=== PATIENT | male | born 1930 | race Caucasian/White ===

== ENCOUNTER 2016-05-26 17:24 | Observation (INO) | payer OTHER, MEDICARE ==
--- NOTE | 2016-05-26 17:39 | EDPHY ---
H & P Time Seen by Provider: 05/26/16 17:27 HPI/ROS: CHIEF COMPLAINT: Slurred speech and dizziness and right-sided visual problem HISTORY OF PRESENT ILLNESS: Patient had a previous stroke in 2011 which left him with a facial droop. He was with his family when he started saying that he had some dizziness at 3:45 p.m. or 3:50 p.m.. He them took a nap and woke up an hour after that and told his he had some difficulty with the right side of his vision, worsening slurred speech, and worsening dizziness. Last known normal was 3:45 p.m. today. On arrival he denies headache. He is not on anticoagulants. He continues to have symptoms. REVIEW OF SYSTEMS: Eye: Double vision and trouble with vision to the right ENT: no sore throat Cardiac: no chest pain or syncope Pulmonary: no cough or SOB Abdomen: no vomiting, diarrhea, abdominal pain Musculoskeletal: no back pain or neck pain Skin: no rash Neuro: no headache Constitutional: no fever : no urinary symptoms A comprehensive 10 point review of systems is otherwise negative aside from elements mentioned in the history of present illness. PAST MEDICAL HISTORY: H&P dated 12/14/2014 personally reviewed. Includes history of stroke, left facial droop, chronic right facial numbness after trigeminal neuralgia treatment, "blurry vision and diplopia that is chronic", hypertension, AFib, GERD. Right hip replacement. Social history: Former smoker, . General Appearance: Alert, cooperative. Eyes: No scleral icterus. Pupils 3 mm reactive bilaterally but right eye has lateral deviation at rest. Extraocular motion intact. ENT, Mouth: Normal mucous membranes. Respiratory: Normal respiratory effort, breath sounds equal, lungs are clear to auscultation. Cardiovascular: Regular rate and rhythm. Gastrointestinal: Abdomen is soft and non tender. Neurological: Alert and oriented x3. Expressive aphasia is present. Right facial numbness. Patient is able to have equal mail technician strength and lift each leg off the bed. He has a left facial droop present which apparently is not new. Visual victor intact to confrontation. Skin: Warm and dry, no rashes. Musculoskeletal: No peripheral edema and no joint swelling. Psychiatric: Not agitated. Emergency Department course/MDM: Patient was made a stroke alert on arrival into the room. 1737: Discussed with Dr. Benjamin from [facility]. 175: Evaluated with Dr. Benjamin recommends no IV alteplase, CT angiography, transfer of large vessel occlusion or admission to [facility] for MRI and Neurology consultation if no acute large vessel occlusion. He personally evaluated the patient by telemedicine. During this evaluation Dr. Benavides called to report nothing acute seen on noncontrast head CT. 1821: Dr. Benavides reports negative CT angiography, results discussed with the patient and family, plan to admit with Neurology consultation. Smoking Status: Never smoked Constitutional: Initial Vital Signs Temperature (C) 36.8 C 05/26/16 17:24 Heart Rate 60 05/26/16 17:24 Respiratory Rate 22 H 05/26/16 17:24 Blood Pressure 130/70 H 05/26/16 17:24 O2 Sat (%) 95 05/26/16 17:24 O2 Delivery Mode Room Air Allergies/Adverse Reactions: No Known Allergies Allergy (Unverified 06/14/14 22:40) Home Medications: Medication Instructions Recorded ALPRAZolam [Xanax 0.5 MG (RX)] 0.25 mg PO HS 10/29/11 Ezetimibe [Zetia] 10 mg PO DAILY 12/14/14 Tamsulosin HCl [Flomax] 0.4 mg PO HS 12/14/14 Aspirin [Aspirin 81mg (*)] 81 mg PO DAILY 05/26/16 Carboxymethylcellulose 1% [Refresh 1 each RTEYE QID 05/26/16 Celluvisc (*)] Fluoxetine HCl [Prozac 40 mg] 40 mg PO DAILY 05/26/16 Mineral Oil/Petrolatum,White 3.5 gm LEFTEYE QID 05/26/16 [Genteal Pm Ointment] Moxifloxacin HCl [Vigamox] 1 drops RTEYE DAILY 05/26/16 Oxybutynin Chloride [Ditropan Xl] 5 mg PO DAILY 05/26/16 Oxybutynin Chloride [Ditropan Xl] 10 mg PO HS 05/26/16 amLODIPine BESYLATE [Norvasc 2.5 2.5 mg PO BID 05/26/16 mg (*)] Medical Decision Making - Diagnostics EKG Interpretation: 12-lead EKG interpreted by me; official reading is in trace master. My interpretation is sinus rhythm with PVCs and first-degree AV block. Imaging: Imaging Impressions Head CT 05/26/16 17:30 Impression: 1. No acute intracranial findings. 2. Diffuse cerebral atrophy, with scattered periventricular and subcortical low attenuation consistent with chronic microvascular ischemic gliosis. 3. Chronic sinus disease. Findings discussed with Shai Gay M.D., on May 26, 2016 at 1742 hours. Head CTA 05/26/16 17:53 Impression: 1. No acute vascular findings. 2. Approximately 50% stenosis of the proximal left internal carotid artery. 3. Moderate to severe spinal canal narrowing from C5 through C7. 4. Moderate basilar artery stenosis, similar to the comparison. 5. Atherosclerosis with mild stenoses at multiple sites as above. 6. Additional findings, as above. Stenoses are calculated using [place] Symptomatic Carotid Endarterectomy Trial (NASCET) criteria. Preliminary findings discussed with Shai Gay M.D., on May 26, 2016 at 1814 hours. Neck CTA 05/26/16 17:53 Impression: 1. No acute vascular findings. 2. Approximately 50% stenosis of the proximal left internal carotid artery. 3. Moderate to severe spinal canal narrowing from C5 through C7. 4. Moderate basilar artery stenosis, similar to the comparison. 5. Atherosclerosis with mild stenoses at multiple sites as above. 6. Additional findings, as above. Stenoses are calculated using [place] Symptomatic Carotid Endarterectomy Trial (NASCET) criteria. Preliminary findings discussed with Shai Gay M.D., on May 26, 2016 at [address] personally reviewed by myself. Differential Diagnosis: Differential considered including but not limited to seizure, intracranial bleed , ischemic stroke, metabolic Consult/Admit Bed Type: [facility] 1824, [facility] 1825 Critical Care Time: Critical care time spent by me, Dr. Gay, exclusively with the care of this patient was 30 minutes, exclusive of PA or BOOSTER STATION OPERATOR time and exclusive of separate procedures. The organ system at risk was neurologic and I ordered consultation with [facility], multiple diagnostic studies, history from family, discussion of treatment options; to stabilize the patient and prevent worsening of the patient's condition. - Data Points Laboratory Results: Laboratory Results 05/26/16 17:30 05/26/16 17:30 05/26/16 05/26/16 05/26/16 17:30 17:30 17:30 WBC 8.70 10^3/uL 10^3/uL (3.80-9.50) RBC 4.35 10^6/uL L 10^6/uL (4.40-6.38) Hgb 14.5 g/dL g/dL (13.7-17.5) POC Hgb Hct 41.6 % % (40.0-51.0) POC Hct MCV 95.6 fL fL (81.5-99.8) MCH 33.3 pg pg (27.9-34.1) MCHC 34.9 g/dL g/dL (32.4-36.7) RDW 13.4 % % (11.5-15.2) Plt Count 178 10^3/uL 10^3/uL (150-400) MPV 10.6 fL fL (8.7-11.7) Neut % (Auto) 69.6 % % (39.3-74.2) Lymph % (Auto) 17.0 % % (15.0-45.0) Callaway % (Auto) 8.9 % % (4.5-13.0) Eos % (Auto) 3.7 % % (0.6-7.6) Baso % (Auto) 0.5 % % (0.3-1.7) Nucleat RBC Rel Count 0.0 % % (0.0-0.2) Absolute Neuts (auto) 6.06 10^3/uL 10^3/uL (1.70-6.50) Absolute Lymphs (auto) 1.48 10^3/uL 10^3/uL (1.00-3.00) Absolute Monos (auto) 0.77 10^3/uL 10^3/uL (0.30-0.80) Absolute Eos (auto) 0.32 10^3/uL 10^3/uL (0.03-0.40) Absolute Basos (auto) 0.04 10^3/uL 10^3/uL (0.02-0.10) Absolute Nucleated RBC 0.00 10^3/uL 10^3/uL (0-0.01) Immature Gran % 0.3 % % (0.0-1.1) Immature Gran # 0.03 10^3/uL 10^3/uL (0.00-0.10) PT 14.8 SEC SEC (12.0-15.0) INR 1.16 (0.83-1.16) APTT 32.0 SEC SEC (23.0-38.0) POC Sodium Sodium 137 mEq/L mEq/L (134-144) POC Potassium Potassium 4.5 mEq/L mEq/L (3.5-5.2) POC Chloride Chloride 103 mEq/L mEq/L (97-110) Carbon Dioxide 29 mEq/l mEq/l (22-31) Anion Gap 5 mEq/L L mEq/L (8-16) POC BUN BUN 18 mg/dL mg/dL (7-23) Creatinine 0.8 mg/dL mg/dL (0.7-1.3) POC Creatinine Estimated GFR > 60 Glucose 113 mg/dL H mg/dL (70-100) POC Glucose Calcium 9.2 mg/dL mg/dL (8.5-10.4) Troponin I < 0.012 ng/mL ng/mL (0-0.034) 05/26/16 17:29 WBC RBC Hgb POC Hgb 14.3 gm/dL L gm/dL (14.5-17.3) Hct POC Hct 42 % L % (42.8-50.6) MCV MCH MCHC RDW Plt Count MPV Neut % (Auto) Lymph % (Auto) Callaway % (Auto) Eos % (Auto) Baso % (Auto) Nucleat RBC Rel Count Absolute Neuts (auto) Absolute Lymphs (auto) Absolute Monos (auto) Absolute Eos (auto) Absolute Basos (auto) Absolute Nucleated RBC Immature Gran % Immature Gran # PT INR APTT POC Sodium 141 mEq/L mEq/L (134-144) Sodium POC Potassium 4.2 mEq/L mEq/L (3.3-5.0) Potassium POC Chloride 99 mEq/L mEq/L (96-108) Chloride Carbon Dioxide Anion Gap POC BUN 18 mg/dL mg/dL (7-23) BUN Creatinine POC Creatinine 0.9 mg/dL mg/dL (0.8-1.5) Estimated GFR Glucose POC Glucose 116 mg/dL H mg/dL (70-100) Calcium Troponin I Point of Care Test Results: 05/26/16 17:29 POC Sodium 141 POC Potassium 4.2 POC Chloride 99 POC BUN 18 POC Creatinine 0.9 POC Glucose 116 H Departure - Departure Disposition: [facility] Inpatient Acute Clinical Impression: Dizziness, Aphasia Condition: Fair
[2016-05-26 17:43] LABS: % IMMATURE GRANULYOCYTES 0.3 % (0.0-1.1); ABSOLUTE IMMATURE GRANULOCYTES 0.03 10^3/uL (0.00-0.10); ADD DIFF? NO; ADD MORPH? NO; ADD SCAN? NO; ATYPICAL LYMPHOCYTE FLAG 0 (0-99); FRAGMENT RBC FLAG 0 (0-99); HEMATOCRIT 41.6 % (40.0-51.0); HEMOGLOBIN 14.5 g/dL (13.7-17.5); LEFT SHIFT FLG 0 (0-99); LIPEMIA HEMOLYSIS FLAG 90 (0-99); MEAN CELL HEMOGLOBIN 33.3 pg (27.9-34.1); MEAN CELL HEMOGLOBIN CONCENTR. 34.9 g/dL (32.4-36.7); MEAN CELL VOLUME 95.6 fL (81.5-99.8); MEAN PLATELET VOLUME 10.6 fL (8.7-11.7); PLATELET CLUMPS FLAG 20 (0-99); PLATELET COUNT 178 10^3/uL (150-400); RED BLOOD CELL COUNT 4.35 10^6/uL (4.40-6.38); RED CELL DISTRIBUTION WIDTH 13.4 % (11.5-15.2)
[2016-05-26 17:49] LABS: INR 1.16 (0.83-1.16); PROTIME(PATIENT) 14.8 SEC (12.0-15.0)
[2016-05-26 17:52] LABS: ANION GAP 5 mEq/L (8-16); CALCIUM 9.2 mg/dL (8.5-10.4); CARBON DIOXIDE 29 mEq/l (22-31); CHLORIDE 103 mEq/L (97-110); CREATININE 0.8 mg/dL (0.7-1.3); GLOMERULAR FILTRATION RATE > 60; GLUCOSE 113 mg/dL (70-100); POTASSIUM 4.5 mEq/L (3.5-5.2); SODIUM 137 mEq/L (134-144)
[2016-05-26] MEDS ORDERED: IOPAMIDOL (ISOVUE 370) 100 ML BTL IV ONE (17:55)
[2016-05-26 18:04] LABS: TROPONIN I < 0.012 ng/mL (0-0.034)
--- NOTE | 2016-05-26 18:13 | CPEKG ---
Heart Rate: 62 RR Interval: 968 P-R Interval: 237 QRSD Interval: 98 QT Interval: 440 QTC Interval: 447 P Keiser: 63 QRS Keiser: 70 T Wave Keiser: 47 EKG Severity - ABNORMAL ECG - EKG Impression: SINUS RHYTHM EKG Impression: MULTIFORM VENTRICULAR PREMATURE COMPLEXES EKG Impression: FIRST DEGREE AV BLOCK Electronically Signed By: Shai Gay 26-May-2016 18:23:28
[2016-05-26] MEDS ORDERED: ACETAMINOPHEN 325 MG TAB PO PRN (21:35)
[2016-05-26] MEDS ORDERED: ONDANSETRON 4 MG/2 ML VIAL IVP PRN (21:35)
[2016-05-26] MEDS ORDERED: NS 1,000 ML IV SCH (21:45)
--- NOTE | 2016-05-26 22:42 | GHP ---
[f rep st] HISTORY AND PHYSICAL DATE OF ADMISSION: 05/26/2016 CHIEF COMPLAINT: Transient vision changes, slurred speech. HISTORY OF PRESENT ILLNESS: The patient is an 85-year-old male who has had previous strokes which h ave resulted in significant dysphagia, for which he still has a PEG tube in place. He also has had previous diplopia, facial droop, and blurry vision. He presents to the hospital after having new on set dizziness at 3:45 this afternoon. He decided to take a normal-appearing, woke up 1 hour later. At that point, he was noted to have decreased vision in the right eye with double vision, slurred s peech. He was brought to the emergency room as a stroke alert. [facility] was consulted. However, no tPA was administered since they were not 100% sure this was a new stroke, given the fact that this is acute neuro changes superimposed on chronic neuro changes of similar nature. The violetta ent denies that these symptoms are chronic and feels that there was a worsening this afternoon, but he has now returned to baseline. There is perhaps some ongoing persistent slurred speech. He has a lso had urinary frequency and has had an urge to urinate 4 times since arrival to the room only a li ttle over an hour ago. PAST MEDICAL HISTORY: 1. Previous strokes with left-sided facial droop, diplopia, blurry vision, and dysphagia. 2. PEG tube which he uses for free water, but does take an oral diet with thickened liquids. 3. Hypertension. 4. Chronic subdural. 5. Atrial fibrillation. 6. BPH. 7. Trigeminal neuralgia with chronic right facial numbness and droop. MEDICATIONS: Please see computer record for full detailed list. ALLERGIES: No known drug allergies. SOCIAL HISTORY: Quit smoking 25 years ago. No alcohol. Lives with his at [facility]. REVIEW OF SYSTEMS: A complete review of systems obtained. Review of systems is negative regarding constitutional, HEENT, GI, pulmonary, cardiovascular, , hematology, musculoskeletal, endocrine, ps ych, other than the positives and negatives as noted in the HPI. FAMILY HISTORY: Reviewed, noncontributory to presenting complaint. PHYSICAL EXAMINATION: GENERAL: A well-developed, well-nourished male, in no acute distress. VITAL SIGNS: Temperature is 36.6, pulse 73, blood pressure 160/84, saturating 94% on room. EYES: Annalee l conjunctivae. Pupils are equal, reactive to light. ENT: Normal ears and nose. Hearing intact. Normal lips and teeth. Oropharynx moist. NECK: Trachea midline. No thyromegaly. CHEST: Normal respiratory effort. LUNGS: Clear chest bilaterally. CARDIOVASCULAR: Regular rate and rhythm. N o murmur. No lower extremity edema. ABDOMEN: Soft, nontender. No hepatosplenomegaly. SKIN: War m, dry, intact. No rash. MUSCULOSKELETAL: No cyanosis or clubbing. Strength is 5/5 in upper and lower extremities. NEUROLOGIC: He does have a little facial droop on the left. Tongue is essentia lly midline. Normal sensation to light touch. PSYCH: Alert and oriented x3. Normal affect. Norm al judgment. Normal memory. LABORATORY DATA: White count 8.7, hematocrit 41.6, platelets 178. Sodium 137, potassium 4.5, chlor berny 103, bicarb 29, BUN 18, creatinine 0.8, glucose 113. Troponin is negative. INR is 1.16. Head CT is negative. CT angiogram of the neck shows a 50% left internal carotid artery stenosis and C5-C6 severe spinal s tenosis. EKG viewed by me: My personal interpretation is normal sinus rhythm. No ST or T-wave changes. ASSESSMENT AND PLAN: 1. Transient ischemic attack versus stroke. Will check an MRI of the brain. At this point, his sy mptoms are mostly resolved. Will check an echocardiogram. Neurology will see him in consultation i n the morning. He does have a history of atrial fibrillation, so he is at risk for embolic strokes. He is not on anticoagulation, however, perhaps due to this history of chronic subdurals. That nee ds to be clarified. I would think he may be candidate to retry Christofer. Will watch him on telemetr y to see whether we see any definitive atrial fibrillation. Given his peripheral vascular disease, as evidenced by 50% left internal carotid artery stenosis, he needs more aggressive treatment for pe ripheral vascular disease. He will need a statin drug. Will start him on Lipitor 40 mg and check h is lipid panel in the morning. Will continue aspirin for now. 2. Dysphagia. He has a percutaneous endoscopic gastrostomy tube in place which we can continue wit h water. Will keep him n.p.o. overnight until formal speech therapy can be obtained in the morning given his borderline swallow status at baseline. Even a slight new insult may make him unsafe. His baseline is thicken liquids with water only through percutaneous endoscopic gastrostomy tube. 3. Urinary frequency. Will check a urinalysis. Will also check a bladder scan, as he has a known history of benign prostatic hypertrophy. 4. Severe cervical spinal stenosis. I did notice some possible spasticity to his lower extremities when I was examining his strength. He got a severe spastic cramp. This may need further workup. Could consider an MRI of the cervical spine. CODE STATUS: DNR. ADMISSION STATUS: Will admit to observation. If this is truly TIA and he is back to baseline, he m ay be able to go home. DVT PROPHYLAXIS: He is high risk. Will place on subcu Lovenox. /[id number]/MODL
[2016-05-26] MEDS ORDERED: TAMSULOSIN HCL 0.4 MG CAP PO ONE (23:10)
[2016-05-26] MEDS ORDERED: ALPRAZolam 0.25 MG TAB ONE (23:10)
[2016-05-26] MEDS ORDERED: OXYBUTYNIN 5 MG EXT REL TAB PO ONE (23:11)
[2016-05-26] MEDS ORDERED: ALPRAZolam 0.5 MG TAB PO SCH (23:30)
[2016-05-26] MEDS ORDERED: OXYBUTYNIN 5 MG EXT REL TAB PO SCH (23:30)
[2016-05-26] MEDS ORDERED: TAMSULOSIN HCL 0.4 MG CAP PO SCH (23:30)
[2016-05-26] MEDS: PETROLAT,WHT/MIN OIL/SOD CHL 3.5 GM OPHT.OINT EACHEYE PRN (23:52)
[2016-05-27] MEDS: CARBOXYMETHYLCELLULOSE 1% 0.4 ML DROPERETTE RTEYE SCH ×2 (04:25→15:04)
[2016-05-27 05:16] LABS: CHOLESTEROL 139 mg/dL (140-220); CHOLESTEROL/HDL RATIO 3.02 RATIO (1.00-4.97); HIGH DENSITY LIPOPROTEIN 46 mg/dL (40-65); LDL/HDL RATIO 1.72 RATIO (1.00-3.64); LOW DENSITY LIPOPROTEIN 79 mg/dL (80-100); NON-HIGH DENSITY LIPOPROTEIN 93 mg/dL (90-129); TRIGLYCERIDE 70 mg/dL (40-150); VERY LOW DENSITY LIPOPROTEINS 14 mg/dL (8-25)
[2016-05-27] MEDS ORDERED: PETROLATUM WHITE LEFTEYE SCH (06:00)
[2016-05-27] MEDS ORDERED: MINERAL OIL LEFTEYE SCH (06:00)
[2016-05-27 07:05] LABS: COLOR YELLOW; LEUKOCYTE ESTERASE,URINE NEGATIVE (NEGATIVE); NITRITE,URINE NEGATIVE (NEGATIVE)
--- NOTE | 2016-05-27 08:52 | HOSPPROG ---
Hospitalist Progress Note Assessment/Plan: 85M PMH CVA, PAF (not candidate for OAC given SDH in past), CAC, PEG tube 2/2 dysphagia, presented 05/26 with onset of dizziness, decreased vision, diplopia and slurred speech. Deemed not a candidate for tPA given unclear timing of onset and neuro changes that are superimposed on chronic issues. #. TIA:NPO until PARK SERVICES SPECIALIST evaluation echo and neurology consult pending only on ASA started Atorvastatin #. dysphagia: has PEG in place awaiting formal PARK SERVICES SPECIALIST evalu but may have water trough PEG #. severe cervical spinal stenosis: seen on CTA of neck #. carotid disease: moderate on CTA (LICA) Objective: Vital Signs Temp Pulse Resp BP Pulse Ox 97.8 F 56 L 16 139/56 H 96 05/27/16 08:00 05/27/16 08:00 05/27/16 08:00 05/27/16 08:00 05/27/16 08:00 05/26/16 05/27/16 05/28/16 05:59 05:59 05:59 Output Total 120 Balance -120 PT 14.8 SEC (12.0-15.0) 05/26/16 17:30 INR 1.16 (0.83-1.16) 05/26/16 17:30 ICD10 Worksheet Patient Problems: Problems Problem Status Onset Aphasia Acute Dizziness Acute Acute chest pain Acute
[2016-05-27] MEDS ORDERED: ENOXAPARIN 40 MG/0.4 ML SYR SC SCH (09:00)
[2016-05-27] MEDS ORDERED: NON-FORMULARY NEW DRUG (Fluoxetine Hcl [Prozac 40 Mg] 40 MG) PO SCH (09:00)
[2016-05-27] MEDS ORDERED: ASPIRIN 81 MG CHEWABLE TAB PO SCH (09:00)
[2016-05-27] MEDS ORDERED: ATORVASTATIN CALCIUM 40 MG TAB PO SCH (09:00)
[2016-05-27] MEDS ORDERED: FLUoxetine 20 MG CAP PO SCH (09:00)
[2016-05-27] MEDS ORDERED: OXYBUTYNIN CHLORIDE 5 MG PO SCH (09:00)
[2016-05-27] MEDS ORDERED: OXYBUTYNIN 5 MG EXT REL TAB PO SCH (09:00)
[2016-05-27] MEDS ORDERED: EZETIMIBE 10 MG TAB PO SCH (09:00)
[2016-05-27] MEDS ORDERED: MOXIFLOXACIN HCL RTEYE SCH (09:00)
[2016-05-27] MEDS: PETROLAT,WHT/MIN OIL/SOD CHL 3.5 GM OPHT.OINT EACHEYE PRN (09:48)
--- NOTE | 2016-05-27 15:00 | PDCONSULT ---
Field Laboratory Operator Note: HOSPITAL NEUROLOGY CONSULT REQUESTING: Radha Mohan MD REASON: ? stroke HPI: This is an 85-year-old right-handed gentleman with a history of atrial fibrillation, hypertension, hyperlipidemia, prior right caudate head stroke ( with residual dysarthria, dysphagia, left-sided weakness, dysphagia to liquids necessitating PEG for fluid supplementation), right-sided trigeminal neuralgia status post surgical intervention (which resulted in iatrogenic right hemifacial weakness and sensory loss), prior spontaneous chronic subdural hygromas. He presented to our ED yesterday with complaints of namely "dizziness " and "double vision." There was also possibly an indication worsening slurred speech. Patient states since May 25 he's been experiencing episodic "dizziness." When asked to describe this sensation, he states he is feeling lightheaded, like he might pass out, when he gets up to stand/walk. He will experience this sensation for 20 mins or so. It will improve if he sits down or lays down. He was not having any chest pain, palpitation or shortness or breath. No visual graying. He has not lost consciousness or fallen. He is also describing episodic double vision. He states he is seeing two superimposed images out of the right eye only - that is, if he closes the left eye he sees double, but closing the right eye resolves the visual disturbance. He denies any eye pain, headache, scalp tenderness/pain, fevers, jaw claudication, visual loss. He states his speech may have been a bit more slurred than usual - his son thinks this is the case as well. They have not noted any worsening facial weakness on my interview. He does have some left-sided weakness from his prior stroke, but no change in this. No sensory changes. ROS: As per the HPI, otherwise a complete 12 point ROS was performed and is negative ALLERGIES AND MEDS: As recorded in the EMR - reviewed and reconciled PFSH: As per the intake H&P by Dr. Mohan from yesterday EXAM: VS reviewed in EMR GEN: frail elderly gentleman laying in NAD HEENT: NCAT, sclera anicteric, conjunctiva not injected, MMM, oropharynx clear, no scalp tenderness NECK: supple, nontender, no meningismus CV: RRR s1 s2 wo m/r/c/g. Carotid pulses 2+ wo bruit NEURO: MS: awake, alert, oriented to all spheres. Speech with a mild flaccid dysarthria. No language disturbance. Follows commands. Attends to both sides. Recent/remote memory grossly intact. Mood euthymic. Good fund of knowledge. CN: pupils 2mm round and reactive. Unable to visualize fundi. VFF OS, some inconsistent deficit in the temporal field OD. Primary gaze centered. Ocular motility with some restricted upgaze and smooth pursuit with saccadic intrusion and motor impersistence. Reduced sensation in the right hemiface. Right facial weakness with lower face droop and weak eye closure. Hearing grossly intact to finger rub. Palatoglossal movements intact. Shoulder shrug and head turn strong. MOTOR: reduced bulk throughout. Normal tone. No adventitial movements. Subtle weakness in the right deltoid and right hip flexors at 4+/5. SENSORY: intact LT/PP throughout. No extinction. COORD: no ataxia FN/HS. Marilynn preserved. Romberg neg. REFLEX: plantars down. No clonus. Absent ankle jerks, other DTRs trace. GAIT: deferred to PT safety evaluation DATA REVIEW: Labs reviewed in EMR LDL 79 PERSONALLY INTERPRETED RESULTS AND DATA: MRI brain wo - global volume loss, areas of scattered T2 FLAIR hyperintensity in the subcortical and periventricular white matter, likely reflective of chronic microvascular ischemic change, severe in appearance. He has several areas of gliosis in the basal ganglia and subcortical white matter of the frontal lobes, likely chronic lacunar infarcts. No acute infarction noted. CTA head/neck - 50% stenosis LICA, moderate basilar artery stenosis, some mild areas of intracranial stenosis without hemodynamic significance. IMPRESSION AND RECOMMENDATIONS: // PRESYNCOPE - ORTHOSTATIC // MONOCULAR DIPLOPIA // HX STROKE // HTN // HLD // ATRIAL FIBRILLATION // HX SPONTANEOUS SDH/HYGROMAS // HX RIGHT TRIGEMINAL NEURALGIA // HX RIGHT IATROGENIC FACIAL WEAKNESS Patient with prior stroke, now with "dizziness" that is really lightheadedness/ presyncope in semiology, provoked with positional changes and standing/walking. This would be more concerning for a cardiovascular etiology. Certainly has conventional vascular risk factors and arrhythmia (afib), but will need cardiac workup as directed by primary team. Monocular diplopia indicates primary ocular pathology. He is going to followup with his outpatient nuclear weapons specialist at discharge. No evidence of any acute ischemia on MRI, but does have HX of stroke and severe microvascular ischemic changes on MRI. We do have an opportunity to optimize his stroke risk here. Given his afib, I would advise increasing aspirin to 325mg daily. His HAS-BLED score bleeding risk stratification (with anticoagulation) is pretty balanced with his CHADSVASC2 risk of embolic stroke from afib. However, he is a fall risk given his left-sided weakness and he does have a history of spontaneous SDH (not provoked per patient and son report) . I do not recommend anticoagulation given these additional points, as I think the risk of bleeding outweighs the risk of embolic stroke. He should be on a statin for LDL goal < 70 (can probably decrease the dose of atorvastatin that was started yesterday, as we only need a further reduction in LDL of about 15%) . Blood pressure optimization is of the utmost importance, but must be balanced with risk of possible overtreatment. Closer to normal is better, but definitely SBP < 150 should be achieved, as per HYVET study data. He can followup with his copper flotation operator and PCP next week. Otherwise I will sign off. Please recall PRN.
--- NOTE | 2016-05-27 15:33 | PDIAF ---
- Diagnosis Diagnosis: dizziness/diplopia Code Status: Do Not Resuscitate - Medication Management Discharge Medications: Medications to Continue on Transfer ALPRAZolam [Xanax 0.5 MG (*)] 0.25 mg PO HS 10/29/11 [Last Taken 05/25/16] Ezetimibe [Zetia 10 MG (*)] 10 mg PO DAILY 12/14/14 [Last Taken 05/26/16] Tamsulosin HCl [Flomax 0.4 MG (*)] 0.4 mg PO HS 12/14/14 [Last Taken 05/25/16] Carboxymethylcellulose 1% [Refresh Celluvisc (*)] 1 each RTEYE QID 05/26/16 [ Last Taken 05/26/16] Fluoxetine HCl [Prozac 40 mg] 40 mg PO DAILY 05/26/16 [Last Taken 05/26/16] Mineral Oil/Petrolatum,White [Genteal Pm Ointment] 3.5 gm LEFTEYE QID 05/26/16 [ Last Taken 05/26/16] Moxifloxacin HCl [Vigamox] 1 drops RTEYE DAILY 05/26/16 [Last Taken 05/26/16 08: 00] Oxybutynin Chloride [Ditropan Xl] 5 mg PO DAILY 05/26/16 [Last Taken 05/26/16 08 :00] Oxybutynin Chloride [Ditropan Xl] 10 mg PO HS 05/26/16 [Last Taken 05/25/16] amLODIPine BESYLATE [Norvasc 2.5 mg (*)] 2.5 mg PO BID 05/26/16 [Last Taken 08:00] Acetaminophen [Tylenol 325mg (*)] 650 mg PO Q4 PRN #0 tab 05/27/16 [Last Taken Unknown] Aspirin [Aspirin 325 mg (*)] 325 mg PO DAILY #30 tab 05/27/16 [Last Taken Unknown] Atorvastatin Calcium 20 mg PO DAILY #0 tablet 05/27/16 [Last Taken Unknown] Discharge Medications: Refer to the Discharge Home Medication list for PRN reason. - Orders Services needed: Occupational Therapy Diet Recommendation: cardiac -low fat low salt Diet Texture: Dysphagia 3 - Advanced - Moist, Bite-Size, Combs Thick Liquids, Meds Whole w/Liquids - Follow Up Care Current Providers and Referrals: Honey Lewis MD [Primary Care Provider] - As per Instructions
[2016-05-27 15:40] VITALS: BP 158/65; PULSE 60; RESP 18; TEMP 97.9; O2SAT 95
[2016-05-27] MEDS ORDERED: NON-FORMULARY NEW DRUG (Oxybutynin Chloride [Ditropan Xl] 10 MG) PO SCH (21:00)
--- NOTE | 2016-06-04 10:43 | GDS ---
[f rep st] DISCHARGE SUMMARY DISCHARGE DIAGNOSES: 1. Possible transient ischemic attack with no evidence of acute ischemia on MRI. 2. History of stroke and severe microvascular ischemic changes on MRI on this admission. 3. Monocular diplopia indicative of ocular pathology with recommendations to follow up with an manager rehab as an outpatient. 4. History of dysphagia with percutaneous gastric feeding tube in place. 5. Severe spinal canal stenosis seen on CTA of neck. 6. Moderate carotid disease noted on CTA of neck. 7. History of paroxysmal atrial fibrillation. 8. History of positive coronary artery calcium score. CONSULTATIONS: Dr. Garrison of neurology. PROCEDURES: 1. 05/26/2016, head CT, which showed diffuse cerebral atrophy with scattered periventricular and subcortical low attenuation consistent with chronic microvascular ischemic gliosis. 2. 05/26/2016, head and neck CTA, which showed approximately 50% stenosis of the proximal left internal carotid artery. [id number] spinal canal narrowing from C5 through C7. Moderate basilar artery stenosis, atherosclerosis , and mild stenosis seen at multiple sites. 3. 05/27/2016, brain MRI which showed no acute intracranial findings. Atrophy with white matter white matter changes most likely related to chronic microvascular ischemic gliosis. BRIEF HISTORY: Please see dictated H and P by Dr. Mohan for complete detail. In brief, the patient is an 85-year-old male with past medical history of CVA and PAF. He has been deemed not a candidate for full oral anticoagulation given history of subdural hematomas in the past. He also has a positive coronary artery calcium score, PEG tube due to dysphagia, and presented on 05/26 with dizziness, decreased vision, and monocular diplopia. He was deemed not a candidate for tPA given unclear timing of onset of symptoms with superimposed chronic issues. He was seen for neurologic consultation and was found to have no acute ischemia on MRI. His aspirin dose was increased to 325. He was started on atorvastatin. His monocular diplopia is felt to be ophthalmologic in origin, and therefore, he was advised to follow up with an manager rehab. RESULTS PENDING: None. DIET: Per PEG tube. ACTIVITY: As tolerated. DISCHARGE MEDICATIONS: Please see med reconciliation for complete details. He is being discharged on his Flomax, Zetia, Xanax, GenTeal PM ointment, Refresh eye drops, Vigamox eye drops, Ditropan, fluoxetine, amlodipine. He has been started on atorvastatin 20 mg p.o. daily. His aspirin dose was increased to 325 mg p.o. daily. FOLLOWUP: Follow with PCP in 1-2 weeks' time. /[id number]/MODL MTDD
== END 2016-05-27 16:06 | disposition home or self-care (01) ==
LOC: INTOOBSV 18:27 → F3N 19:40
PROVIDERS: ADMIT Internal Medicine; ATTEND Internal Medicine
DX: R42 Dizziness and giddiness (principal); H53.2 Diplopia; I69.391 Dysphagia following cerebral infarction; I69.392 Facial weakness following cerebral infarction; I69.398 Other sequelae of cerebral infarction; I10 Essential (primary) hypertension; I48.91 Unspecified atrial fibrillation; K21.9 Gastro-esophageal reflux disease without esophagitis; E78.5 Hyperlipidemia, unspecified; I65.22 Occlusion and stenosis of left carotid artery; N40.1 Benign prostatic hyperplasia with lower urinary tract symptoms; G50.0 Trigeminal neuralgia; R35.0 Frequency of micturition; M48.02 Spinal stenosis, cervical region; I70.8 Atherosclerosis of other arteries; Z93.1 Gastrostomy status; Z87.891 Personal history of nicotine dependence; Z96.641 Presence of right artificial hip joint; Z66 Do not resuscitate
CPT/HCPCS: 70450; 70496; 70498; 70551; 92610; 93005; 93306; 97162; 97165; 97535; G0378; G8978; G8979; G8987; G8988; G8996; G8997; G8998; J1650; Q9967; 82947-QW

== ENCOUNTER 2016-07-30 02:40 | Inpatient (IN) | payer OTHER, MEDICARE ==
[2016-07-30] MEDS ORDERED: ONDANSETRON 4 MG/2 ML VIAL IVP ONE (02:44)
[2016-07-30] MEDS ORDERED: HYDROmorphONE/DILAUDID 1 MG/ML SYR IVP ONE (02:44)
[2016-07-30] MEDS ORDERED: NS 1,000 ML IV ONE ×2 (02:44→04:18)
--- NOTE | 2016-07-30 02:48 | EDPHY ---
H & P HPI/ROS: HPI CHIEF COMPLAINT: Abdominal pain, nausea, vomiting HISTORY OF PRESENT ILLNESS: This patient 85-year-old male, significant past medical history for AFib, CVA, hypertension, BPH, lives at [facility], presents emergency room with left-sided abdominal pain since noon today with associated nausea vomiting. reports to me since around midnight to 2:00 a.m. he has had persistent nausea vomiting. He is complaining of left-sided abdominal pain is currently 9/10. No fever. No chest pain no shortness of breath. Tells me the pain is left-sided dull ache. Constant. Of note the patient's is at bedside. This patient does have a DNR comfort measures only. Past Medical History: AFib, hypertension, BPH, PEG tube. TIA, CVA, dysphagia requiring PEG tube, AFib proximal, coronary disease Past Surgical History: Peg tube Social History: Lives at [facility] independent living at bedside. DNR. Comfort measures only. Family History: Noncontributory ROS REVIEW OF SYSTEMS: A comprehensive 10 point review of systems is otherwise negative aside from elements mentioned in the history of present illness. Exam Constitutional triage nursing summary reviewed, vital signs reviewed, awake/ alert. Eyes normal conjunctivae and sclera, EOMI, PERRLA. HENT normal inspection, atraumatic, moist mucus membranes, no epistaxis, neck supple/ no meningismus, no raccoon eyes. Respiratory clear to auscultation bilaterally, normal breath sounds, no respiratory distress, no wheezing. Cardiovascular rate normal, regular rhythm, no murmur, no edema, distal pulses normal. Gastrointestinal tender palpation left lower abdomen and left upper abdomen rather hard, firm, no peritoneal signs, normal bowel sounds, no distension, no pulsatile mass. Genitourinary no CVA tenderness. Musculoskeletal no midline vertebral tenderness, full range of motion, no calf swelling, no tenderness of extremities, no meningismus, good pulses, neurovascularly intact. Skin pink, warm, & dry, no rash, skin atraumatic. Neurologic awake, alert and oriented x 3, AAOx3, moves all 4 extremities equally, motor intact, sensory intact, CN II-XII intact, normal cerebellar, normal vision, normal speech. Psychiatric normal mood/affect. Heme/Lymph/Immune no lymphadenopathy. Differential diagnosis includes but is not limited to and in no particular order : Bowel obstruction, appendicitis, gallbladder disease, diverticulitis, colitis , enteritis, perforated viscus, gastritis, GERD, esophagitis, urinary tract infection, pyelonephritis, kidney stones Medical Decision Making: Plan for this patient IV establishment, blood work, including lactic acid abdominal labs, IV hydration normal saline, IV Dilaudid for pain control IV Zofran for nausea. CT abdomen pelvis with IV contrast to help delineate acute intra-abdominal pathology. Possible hernia. Bowel obstruction. Re-evaluation: 0412: Patient is back from CT at this time. I did review his CT scan Radiology is a looking at a right now. Appears is a high-grade SBO. I have consulted General surgery Dr. Goins as I feel this patient most likely has a high-grade small-bowel obstruction. 0435AM: Patient's CT scan has been reviewed shows most likely SBO. Dr. Goins [facility] has seen and evaluated the patient. Plan for admission. Plan to allow his PEG tube event. See if this improves is most likely SBO. Patient is hemodynamically stable at this time no acute distress. Pain is improved. Not vomiting. Source: Patient, EMS - Personal History Tetanus Vaccine Date: 2003 - Medical/Surgical History Hx Asthma: No Hx Chronic Respiratory Disease: No Hx Diabetes: No Hx Cardiac Disease: Yes Hx Renal Disease: No Hx Cirrhosis: No Hx Alcoholism: No Hx HIV/AIDS: No Hx Splenectomy or Spleen Trauma: No Other PMH: cva 10/2011, right facial numbness-trigeminal neuralgia, left side slight remaining deficit, HTN, GERD, dysphagia with feeding tube - Social History Smoking Status: Never smoked Constitutional: Initial Vital Signs Temperature (C) 36.6 C 07/30/16 02:51 Heart Rate 63 07/30/16 02:51 Respiratory Rate 16 07/30/16 02:51 Blood Pressure 157/73 H 07/30/16 02:51 O2 Sat (%) 91 L 07/30/16 02:51 O2 Delivery Mode Room Air Allergies/Adverse Reactions: No Known Allergies Allergy (Unverified 07/30/16 02:50) Home Medications: Medication Instructions Recorded ALPRAZolam [Xanax 0.5 MG (*)] 0.25 mg PO HS 10/29/11 Ezetimibe [Zetia 10 MG (*)] 10 mg PO DAILY 12/14/14 Tamsulosin HCl [Flomax 0.4 MG (*)] 0.4 mg PO HS 12/14/14 Carboxymethylcellulose 1% [Refresh 1 each RTEYE QID 05/26/16 Celluvisc (*)] Fluoxetine HCl [Prozac 40 mg] 40 mg PO DAILY 05/26/16 Mineral Oil/Petrolatum,White 3.5 gm LEFTEYE QID 05/26/16 [Genteal Pm Ointment] Moxifloxacin HCl [Vigamox] 1 drops RTEYE DAILY 05/26/16 Oxybutynin Chloride [Ditropan Xl] 5 mg PO DAILY 05/26/16 Oxybutynin Chloride [Ditropan Xl] 10 mg PO HS 05/26/16 amLODIPine BESYLATE [Norvasc 2.5 2.5 mg PO BID 05/26/16 mg (*)] Acetaminophen [Tylenol 325mg (*)] 650 mg PO Q4 PRN #0 tab 05/27/16 Aspirin [Aspirin 325 mg (*)] 325 mg PO DAILY #30 tab 05/27/16 Atorvastatin Calcium 20 mg PO DAILY #0 tablet 05/27/16 Medical Decision Making - Data Points Laboratory Results: Laboratory Results 07/30/16 02:45 07/30/16 02:45 07/30/16 07/30/16 07/30/16 02:45 02:45 02:45 WBC 23.92 10^3/uL H 10^3/uL (3.80-9.50) RBC 4.94 10^6/uL 10^6/uL (4.40-6.38) Hgb 16.9 g/dL g/dL (13.7-17.5) Hct 48.0 % % (40.0-51.0) MCV 97.2 fL fL (81.5-99.8) MCH 34.2 pg H pg (27.9-34.1) MCHC 35.2 g/dL g/dL (32.4-36.7) RDW 13.4 % % (11.5-15.2) Plt Count 197 10^3/uL 10^3/uL (150-400) MPV 11.4 fL fL (8.7-11.7) Neut % (Auto) 86.9 % H % (39.3-74.2) Lymph % (Auto) 7.0 % L % (15.0-45.0) Crane % (Auto) 4.8 % % (4.5-13.0) Eos % (Auto) 0.3 % L % (0.6-7.6) Baso % (Auto) 0.3 % % (0.3-1.7) Nucleat RBC Rel Count 0.0 % % (0.0-0.2) Absolute Neuts (auto) 20.79 10^3/uL H 10^3/uL (1.70-6.50) Absolute Lymphs (auto) 1.68 10^3/uL 10^3/uL (1.00-3.00) Absolute Monos (auto) 1.14 10^3/uL H 10^3/uL (0.30-0.80) Absolute Eos (auto) 0.08 10^3/uL 10^3/uL (0.03-0.40) Absolute Basos (auto) 0.06 10^3/uL 10^3/uL (0.02-0.10) Absolute Nucleated RBC 0.00 10^3/uL 10^3/uL (0-0.01) Immature Gran % 0.7 % % (0.0-1.1) Immature Gran # 0.17 10^3/uL H 10^3/uL (0.00-0.10) PT 15.1 SEC H SEC (12.0-15.0) INR 1.19 H (0.83-1.16) APTT 28.6 SEC SEC (23.0-38.0) VBG Lactic Acid Sodium 140 mEq/L mEq/L (134-144) Potassium 4.1 mEq/L mEq/L (3.5-5.2) Chloride 100 mEq/L mEq/L (97-110) Carbon Dioxide 27 mEq/l mEq/l (22-31) Anion Gap 13 mEq/L mEq/L (8-16) BUN 22 mg/dL mg/dL (7-23) Creatinine 1.0 mg/dL mg/dL (0.7-1.3) Estimated GFR > 60 Glucose 201 mg/dL H mg/dL (70-100) Calcium 10.2 mg/dL mg/dL (8.5-10.4) Total Bilirubin 1.6 mg/dL H mg/dL (0.1-1.4) Conjugated Bilirubin 0.4 mg/dL mg/dL (0.0-0.5) Unconjugated Bilirubin 1.2 mg/dL H mg/dL (0.0-1.1) AST 25 IU/L IU/L (17-59) ALT 39 IU/L IU/L (21-72) Alkaline Phosphatase 98 IU/L IU/L (38-126) Troponin I < 0.012 ng/mL ng/mL (0-0.034) Total Protein 6.9 g/dL g/dL (6.3-8.2) Albumin 4.1 g/dL g/dL (3.5-5.0) Lipase 96.0 IU/L IU/L (23-300) 07/30/16 02:45 WBC RBC Hgb Hct MCV MCH MCHC RDW Plt Count MPV Neut % (Auto) Lymph % (Auto) Crane % (Auto) Eos % (Auto) Baso % (Auto) Nucleat RBC Rel Count Absolute Neuts (auto) Absolute Lymphs (auto) Absolute Monos (auto) Absolute Eos (auto) Absolute Basos (auto) Absolute Nucleated RBC Immature Gran % Immature Gran # PT INR APTT VBG Lactic Acid 3.0 mmol/L H mmol/L (0.7-2.1) Sodium Potassium Chloride Carbon Dioxide Anion Gap BUN Creatinine Estimated GFR Glucose Calcium Total Bilirubin Conjugated Bilirubin Unconjugated Bilirubin AST ALT Alkaline Phosphatase Troponin I Total Protein Albumin Lipase Medications Given: Discontinued Medications Hydromorphone HCl (Dilaudid) 0.5 mg IVP EDNOW ONE Stop: 07/30/16 02:45 Last Admin: 07/30/16 03:18 Dose: 0.5 mg Sodium Chloride (Ns) 1,000 mls @ 0 mls/hr IV ONCE ONE; Wide Open PRN Reason: Protocol Stop: 07/30/16 02:45 Last Admin: 07/30/16 03:17 Dose: 1,000 mls Ondansetron HCl (Zofran) 4 mg IVP EDNOW ONE Stop: 07/30/16 02:45 Last Admin: 07/30/16 03:18 Dose: 4 mg Departure - Departure Disposition: [facility] Inpatient Acute Clinical Impression: SBO (small bowel obstruction) Condition: Fair
[2016-07-30 02:56] LABS: % IMMATURE GRANULYOCYTES 0.7 % (0.0-1.1); ABSOLUTE IMMATURE GRANULOCYTES 0.17 10^3/uL (0.00-0.10); ADD DIFF? NO; ADD MORPH? NO; ADD SCAN? NO; ATYPICAL LYMPHOCYTE FLAG 0 (0-99); FRAGMENT RBC FLAG 0 (0-99); HEMOGLOBIN 16.9 g/dL (13.7-17.5); LEFT SHIFT FLG 0 (0-99); LIPEMIA HEMOLYSIS FLAG 90 (0-99); MEAN CELL HEMOGLOBIN 34.2 pg (27.9-34.1); MEAN CELL HEMOGLOBIN CONCENTR. 35.2 g/dL (32.4-36.7); MEAN CELL VOLUME 97.2 fL (81.5-99.8); MEAN PLATELET VOLUME 11.4 fL (8.7-11.7); PLATELET CLUMPS FLAG 20 (0-99); PLATELET COUNT 197 10^3/uL (150-400); RED BLOOD CELL COUNT 4.94 10^6/uL (4.40-6.38); RED CELL DISTRIBUTION WIDTH 13.4 % (11.5-15.2)
[2016-07-30 03:05] LABS: INR 1.19 (0.83-1.16); PROTIME(PATIENT) 15.1 SEC (12.0-15.0)
[2016-07-30 03:06] LABS: APTT 28.6 SEC (23.0-38.0)
[2016-07-30] MEDS ORDERED: IOPAMIDOL (ISOVUE-300) 100 ML BTL ONE (03:14)
[2016-07-30 03:17] LABS: ALANINE AMINOTRANSFERASE 39 IU/L (21-72); ALBUMIN 4.1 g/dL (3.5-5.0); ALKALINE PHOSPHATASE 98 IU/L (38-126); ANION GAP 13 mEq/L (8-16); ASPARTATE AMINOTRANSFERASE 25 IU/L (17-59); BILIRUBIN,TOTAL 1.6 mg/dL (0.1-1.4); BILIRUBIN-CONJUGATED 0.4 mg/dL (0.0-0.5); BILIRUBIN-UNCONJUGATED 1.2 mg/dL (0.0-1.1); CALCIUM 10.2 mg/dL (8.5-10.4); CARBON DIOXIDE 27 mEq/l (22-31); CHLORIDE 100 mEq/L (97-110); GLOMERULAR FILTRATION RATE > 60; GLUCOSE 201 mg/dL (70-100); POTASSIUM 4.1 mEq/L (3.5-5.2); SODIUM 140 mEq/L (134-144); TOTAL PROTEIN 6.9 g/dL (6.3-8.2)
[2016-07-30 03:28] LABS: TROPONIN I < 0.012 ng/mL (0-0.034)
[2016-07-30 04:36] LABS: COLOR YELLOW; LEUKOCYTE ESTERASE,URINE NEGATIVE (NEGATIVE); NITRITE,URINE NEGATIVE (NEGATIVE)
[2016-07-30 04:46] LABS: MUCUS TRACE /lpf (NONE-1+)
[2016-07-30] MEDS ORDERED: BENZOCAINE UNIT DOSE SPRAY HURRICAINE MM ONE (04:47)
[2016-07-30 05:28] LABS: ALANINE AMINOTRANSFERASE 35 IU/L (21-72); ALBUMIN 3.4 g/dL (3.5-5.0); ALKALINE PHOSPHATASE 73 IU/L (38-126); ANION GAP 9 mEq/L (8-16); ASPARTATE AMINOTRANSFERASE 31 IU/L (17-59); BILIRUBIN,TOTAL 1.5 mg/dL (0.1-1.4); CALCIUM 8.9 mg/dL (8.5-10.4); CARBON DIOXIDE 27 mEq/l (22-31); CHLORIDE 103 mEq/L (97-110); CREATININE 0.9 mg/dL (0.7-1.3); GLOMERULAR FILTRATION RATE > 60; GLUCOSE 180 mg/dL (70-100); POTASSIUM 4.1 mEq/L (3.5-5.2); SODIUM 139 mEq/L (134-144); TOTAL PROTEIN 6.2 g/dL (6.3-8.2)
[2016-07-30] MEDS: LR 1,000 ML IV SCH ×2 (06:00→15:00)
--- NOTE | 2016-07-30 06:07 | GHP ---
[f rep st] HISTORY AND PHYSICAL DATE OF ADMISSION: 07/30/2016 CHIEF COMPLAINT: Abdominal pain, vomiting. PRESENT ILLNESS: An 85-year-old male in his usual state of health until approximately 16 hours ago when he had diffuse abdominal pain and vomiting. He is passing some flatus. He has never had a previous similar episode. A CT scan done in the emergency department shows dilated small bowel, possible transition zone, and the radiologist could not differentiate SBO from ileus. Also noted is abundant stool in the rectum and sigmoid colon. There was free fluid around the liver. Vascular calcifications are seen. The patient has a PEG tube in the stomach for dysphagia to liquids. ALLERGIES: Oxycodone. CURRENT MEDICATIONS: Fluoxetine, oxybutynin, amlodipine, Zetia, ASA. PREVIOUS SURGERY: Right hip replacement, tonsillectomy. REVIEW OF SYSTEMS: Patient has had a stroke and the only real sequelae is dysphagia to thin liquids. He tolerates regular food. SOCIAL HISTORY: Accompanied by his . Nonsmoker and nondrinker. PHYSICAL EXAM: GENERAL: Elderly male. HEENT: No scleral icterus. Pharynx clear. NECK: Supple without adenopathy. No carotid bruits. LUNGS: Clear. HEART: Normal S1, S2 without murmur. ABDOMEN: Mildly distended. Some tenderness in the left upper quadrant. The PEG tube is present near the midline in the upper abdomen. No abdominal wall hernias are seen. EXTREMITIES/ NEUROLOGIC: Unremarkable. LABORATORY STUDIES: White blood count is elevated at 23.9 thousand, electrolytes are fairly normal. Lactate is 3. ASSESSMENT: Probable small bowel obstruction with some free fluid in the abdomen and leukocytosis. Given the patient's age, his reluctance to want emergent surgery is reasonable; will put an NG tube and see if he can be decompressed with improvement. Rather than place an NG, we will first try his PEG for decompression, hooking it to intermittent suction. If this does not improve things, a regular NG tube might need to be passed. I have explained to the patient and his that he might need an exploratory laparotomy to resolve the bowel obstruction. /[id number]/MODL MTDD
[2016-07-30 08:38] LABS: ANION GAP 9 mEq/L (8-16); CALCIUM 8.7 mg/dL (8.5-10.4); CARBON DIOXIDE 25 mEq/l (22-31); CHLORIDE 105 mEq/L (97-110); CREATININE 0.8 mg/dL (0.7-1.3); GLOMERULAR FILTRATION RATE > 60; GLUCOSE 171 mg/dL (70-100); POTASSIUM 4.6 mEq/L (3.5-5.2); SODIUM 139 mEq/L (134-144)
--- NOTE | 2016-07-30 12:53 | GCON ---
[f rep st] CONSULTATION INTERNAL MEDICINE CONSULTATION DATE OF CONSULTATION: 07/30/2016 REASON FOR CONSULTATION: Medical management, probable small-bowel obstruction. HISTORY OF PRESENT ILLNESS: This is an 85-year-old male who has a history of previous CVA and perip heral vascular disease. He does have a PEG tube, which he uses for fluid and some supplementation, but is eating normally. He says that early this morning, he developed a sudden onset of abdominal p ain associated with profuse vomiting. He continues to have abdominal pain today. He will be going to surgery soon for exploratory laparotomy to evaluate for small-bowel obstruction. He is complaini ng of pain currently. He denies any shortness of breath or chest pain. No fevers or chills. REVIEW OF SYSTEMS: A 10-point review of systems is obtained. Other than stated above is negative. PAST MEDICAL HISTORY: 1. History of CVAs. 2. Atrial fibrillation. 3. Chronic subdural hematoma. 4. Hypertension. 5. BPH. 6. Trigeminal neuralgia with chronic right facial numbness and droop. PAST SURGICAL HISTORY: and right hip surgery. SOCIAL HISTORY: Is and lives with his . No smoking. No alcohol. FAMILY HISTORY: Both parents are . PHYSICAL EXAM: VITAL SIGNS: Afebrile. Blood pressure is 130/60, heart rate 73, oxygen saturation 91% on room air. GENERAL: The patient is well developed, no apparent distress. HEENT: Nonicteric sclerae. Extraocular muscles intact. Slightly dry mucous membranes. NECK: Supple. No thyromega ly. LUNGS: Good effort. Clear to auscultation bilaterally. CARDIOVASCULAR: Regular rate and rhy thm. No murmurs or gallops. ABDOMEN: Distended, decreased bowel sounds, soft. Moderate tenderness . EXTREMITIES: No clubbing, cyanosis, or edema. SKIN: Without rash. Warm, dry, intact. NEUROLO GIC: Alert and oriented x3. PSYCH: Normal mood and affect. LABS: White blood cell count elevated at 23,000. Chemistries normal, though blood sugar is elevate d at 171. CT scan personally reviewed and interpreted shows ileus versus small-bowel obstruction. ASSESSMENT: An 85-year-old male presenting with probable small-bowel obstruction, continued abdomin al pain and elevated lactate. PLAN: 1. Small-bowel obstruction. I agree with exploratory laparotomy. He is optimized for surgery curr ently, and this is emergent. We will follow closely along. 2. History of previous cerebrovascular accident. Continue aspirin once he is able. 3. Hypertension. He is only on minimal amlodipine. We will watch his blood pressure while he is n .p.o. 4. Benign prostatic hypertrophy. Again, we can restart his oral medicines once he is taking oral. Thank you for this consultation. We will follow along with you. /[id number]/MODL
[2016-07-30] MEDS ORDERED: LIDOCAINE 1% 2 ML INJ ID PRN (14:38)
[2016-07-30] MEDS ORDERED: LR 1,000 ML IV ONE ×2 (14:38→18:16)
[2016-07-30] MEDS ORDERED: PETROLATUM WHITE LEFTEYE SCH (16:00)
[2016-07-30] MEDS ORDERED: MINERAL OIL LEFTEYE SCH (16:00)
[2016-07-30] MEDS ORDERED: CARBOXYMETHYLCELLULOSE 1% 0.4 ML DROPERETTE RTEYE SCH (16:00)
[2016-07-30] MEDS ORDERED: ceFAZolin 2 GM in D5W 100 ML IV ONE (17:28)
--- NOTE | 2016-07-30 17:28 | SOAPPROG ---
SOAP Progress Note Assessment/Plan: Assessment/Plan: Mr. Luis Alberto Martinez is an 85-year-old gentleman initially seen by Dr. Sukumar Crisostomo for small-bowel obstruction this morning. Nasogastric tube was removed accidentally by the patient today. CT scan has been reviewed as having a closed loop obstruction. Patient has not had any flatus continues to have abdominal pain with an elevated white blood cell count at 24,000. Given the findings above laparotomy is indicated. The risks benefits and alternatives to surgery have been outlined to the patient and his all questions were addressed. Verbal confirmation of understanding was obtained prior to written consent. Anticipate lysis of adhesions for possible small-bowel obstruction reasonable expectations of recovery were given based on these proposed surgeries. Ancef can be used for surgical prophylaxis 07/30/16 17:26 Objective: Vital Signs Temp Pulse Resp BP Pulse Ox 36.8 C 65 20 155/67 H 92 07/30/16 15:43 07/30/16 15:43 07/30/16 15:43 07/30/16 15:43 07/30/16 15:43 Laboratory Results 07/30/16 08:06 07/29/16 07/30/16 07/31/16 05:59 05:59 05:59 Intake Total 2000 Output Total 0 Balance 2000 0 PT 15.1 SEC (12.0-15.0) H 07/30/16 02:45 INR 1.19 (0.83-1.16) H 07/30/16 02:45 ICD10 Worksheet Patient Problems: Problems Problem Status Onset SBO (small bowel obstruction) Acute Acute chest pain Acute Aphasia Acute Dizziness Acute
[2016-07-30] MEDS: CARBOXYMETHYLCELLULOSE 0.5% 0.4 ML DROPERETTE RTEYE SCH ×2 (17:43→21:26)
[2016-07-30] MEDS: MINERAL OIL LEFTEYE SCH ×2 (17:47→21:25)
[2016-07-30] MEDS: PETROLATUM WHITE LEFTEYE SCH ×2 (17:47→21:25)
[2016-07-30] MEDS ORDERED: ceFAZolin 2 GM/DEXTROSE 100 ML IV ONE (18:00)
--- NOTE | 2016-07-30 18:22 | PDANEPAE ---
ANE History of Present Illness 85 yo w/ sbo for ex lap ANE Past Medical History - Cardiovascular History Hx Hypertension: Yes Hx Arrhythmias: No Hx Chest Pain: No Hx Coronary Artery / Peripheral Vascular Disease: No Hx CHF / Valvular Disease: No Hx Palpitations: No - Pulmonary History Hx COPD: No Hx Asthma/Reactive Airway Disease: No Hx Recent Upper Respiratory Infection: No Hx Oxygen in Use at Home: No - Endocrine History Hx Diabetes: No Hypothyroid: No Hyperthyroid: No - Renal History Hx Renal Disorders: No - Liver History Hx Hepatic Disorders: No - Neurological & Psychiatric Hx Hx Neurological and Psychiatric Disorders: Yes - Chronic Pain History Chronic Pain: No ANE Review of Systems - Exercise capacity METS (RN): 4 METS ANE Patient History - Allergies Allergies/Adverse Reactions: oxycodone [From Percocet] Allergy (Intermediate, Verified 07/30/16 14:37) Other-Enter Comments acetaminophen [From Percocet] Allergy (Verified 07/30/16 14:35) - Home Medications Home medications: home medication list seen and reviewed Home Medications: ALPRAZolam [Xanax 0.5 MG (*)] 0.25 mg PO HS PRN 10/29/11 [Last Taken 06/30/16] Ezetimibe [Zetia 10 MG (*)] 10 mg PO DAILY 12/14/14 [Last Taken 07/29/16] Tamsulosin HCl [Flomax 0.4 MG (*)] 0.4 mg PO HS 12/14/14 [Last Taken 07/29/16] Carboxymethylcellulose 1% [Refresh Celluvisc (*)] 1 each RTEYE QID 05/26/16 [ Last Taken 07/29/16] Fluoxetine HCl [Prozac 40 mg] 40 mg PO DAILY 05/26/16 [Last Taken 07/29/16] Mineral Oil/Petrolatum,White [Genteal Pm Ointment] 3.5 gm LEFTEYE QID 05/26/16 [ Last Taken 07/29/16] Moxifloxacin HCl [Vigamox] 1 drops RTEYE DAILY 05/26/16 [Last Taken 07/29/16] Oxybutynin Chloride [Ditropan Xl] 5 mg PO DAILY 05/26/16 [Last Taken 07/29/16] Oxybutynin Chloride [Ditropan Xl] 10 mg PO HS 05/26/16 [Last Taken 07/29/16] amLODIPine BESYLATE [Norvasc 2.5 mg (*)] 2.5 mg PO BID 05/26/16 [Last Taken 21:00] Difluprednate [Durezol] 1 drop EACHEYE DAILY@12 07/30/16 [Last Taken 07/29/16] - NPO status NPO Since - Liquids (Date): 07/29/16 NPO Since - Liquids (Time): 12:00 NPO Since - Solids (Date): 07/29/16 NPO Since - Solids (Time): 12:00 - Anes Hx Anes Hx: no prior problems - Smoking Hx Smoking Status: Never smoked - Family Anes Hx Family Anes Hx: none ANE Labs/Vital Signs - Labs Result Diagrams: 07/30/16 02:45 07/30/16 08:06 - Vital Signs Blood Pressure: 174/72 Heart Rate: 70 Respiratory Rate: 18 O2 Sat (%): 92 Height: 5 ft 10 in Weight: 65.771 kg ANE Physical Exam - Airway Neck exam: FROM Mallampati Score: Class 2 Mouth exam: normal dental/mouth exam - Pulmonary Pulmonary: no respiratory distress - Cardiovascular Cardiovascular: regular rate and rhythym - ASA Status ASA Status: II, E ANE Anesthesia Plan Anesthesia Plan: general endotracheal anesthesia
[2016-07-30] MEDS ORDERED: PROPOFOL/EMULSION 500 MG/50 ML BOTTLE IV ONE (18:32)
[2016-07-30] MEDS ORDERED: fentaNYL 100 MCG/2 ML INJ ONE ×3 (18:34→20:07)
[2016-07-30] MEDS ORDERED: ROCURONIUM 50 MG/5 ML VIAL ONE ×3 (18:36→19:48)
[2016-07-30] MEDS ORDERED: BUPIVACAINE 0.5% 30 ML SDV ONE (18:50)
[2016-07-30] MEDS ORDERED: LIDOCAINE 1% 300 MG/30 ML SDV ONE (18:50)
[2016-07-30] MEDS ORDERED: BALANCED SALT IRRIG SOLN 15 ML OPHT.BTL ONE (19:01)
[2016-07-30] MEDS ORDERED: DEXAMETHASONE 4 MG/ML VIAL ONE (19:46)
[2016-07-30] MEDS ORDERED: ENALAPRILAT DIHYDRATE 1.25 MG/ML VIAL ONE (19:47)
[2016-07-30] MEDS ORDERED: SUGAMMADEX SODIUM 200 MG/2 ML VIAL IVP ONE (19:55)
[2016-07-30] MEDS ORDERED: NALOXONE HCL 0.4 MG/ML INJ IVP PRN (19:58)
[2016-07-30] MEDS ORDERED: ONDANSETRON 4 MG/2 ML VIAL IVP PRN (19:58)
[2016-07-30] MEDS ORDERED: fentaNYL 100 MCG/2 ML INJ IVP PRN (19:58)
--- NOTE | 2016-07-30 20:24 | POSTOPPROG ---
Post Op Note Date of Operation: 07/30/16 Surgeon: Valentin Aguilera Anesthesiologist: Lauren Anesthesia: GET(General Endotracheal) Pre-op Diagnosis: sbo Post-op Diagnosis: same Procedure: enterectomy, ex-lap Inf/Abcess present in the surg proc area at time of surgery?: No EBL: Minimal Complications: none Specimen(s): jejunum
--- NOTE | 2016-07-30 20:25 | POSTANESTH ---
Post Anesthetic Evaluation Cardiovascular Status: Normal, Stable Respiratory Status: Tx Decrease in SpO2 Level of Consciousness/Mental Status: Can Participate in Eval Pain Control: Adequate, Prn Tx Ordered Nausea/Vomiting Control: Adequate, Prn Tx Ordered Complications Possibly Related to Anesthesia: None Noted
[2016-07-30] MEDS ORDERED: NEPAFENAC EACHEYE SCH (21:00)
[2016-07-31 05:12] LABS: ADD DIFF? YES; ADD MORPH? NO; ATYPICAL LYMPHOCYTE FLAG 0 (0-99); FRAGMENT RBC FLAG 0 (0-99); HEMATOCRIT 31.7 % (40.0-51.0); HEMOGLOBIN 11.2 g/dL (13.7-17.5); LEFT SHIFT FLG 40 (0-99); LIPEMIA HEMOLYSIS FLAG 90 (0-99); MEAN CELL HEMOGLOBIN 34.5 pg (27.9-34.1); MEAN CELL HEMOGLOBIN CONCENTR. 35.3 g/dL (32.4-36.7); MEAN CELL VOLUME 97.5 fL (81.5-99.8); MEAN PLATELET VOLUME 11.6 fL (8.7-11.7); PLATELET CLUMPS FLAG 20 (0-99); PLATELET COUNT 167 10^3/uL (150-400); RED BLOOD CELL COUNT 3.25 10^6/uL (4.40-6.38); RED CELL DISTRIBUTION WIDTH 13.7 % (11.5-15.2)
[2016-07-31 05:13] LABS: ALANINE AMINOTRANSFERASE 27 IU/L (21-72); ALBUMIN 2.3 g/dL (3.5-5.0); ALKALINE PHOSPHATASE 41 IU/L (38-126); ANION GAP 6 mEq/L (8-16); ASPARTATE AMINOTRANSFERASE 16 IU/L (17-59); BILIRUBIN,TOTAL 1.2 mg/dL (0.1-1.4); CARBON DIOXIDE 25 mEq/l (22-31); CHLORIDE 107 mEq/L (97-110); CREATININE 0.7 mg/dL (0.7-1.3); GLOMERULAR FILTRATION RATE > 60; GLUCOSE 170 mg/dL (70-100); POTASSIUM 4.1 mEq/L (3.5-5.2); SODIUM 138 mEq/L (134-144); TOTAL PROTEIN 4.3 g/dL (6.3-8.2)
[2016-07-31 05:25] LABS: ADD SCAN? NO
--- NOTE | 2016-07-31 05:35 | GOP ---
[f rep st] OPERATIVE REPORT DATE OF OPERATION: SURGEON: Valentin Aguilera MD ADVERTISING ASSISTANT: None. ANESTHESIOLOGIST: Dr. Aguilar. PREOPERATIVE DIAGNOSIS: Closed loop obstruction. POSTOPERATIVE DIAGNOSIS: Closed loop obstruction. PROCEDURE PERFORMED: Exploratory laparotomy, enterectomy. FINDINGS: SPECIMENS: Small bowel to permanent pathology. ESTIMATED BLOOD LOSS: Approximately 150 cc, mostly ascites in the belly. INDICATIONS: An 85-year-old gentleman presents with abdominal pain, ascites and what appears to be a closed loop obstruction on his CT scan. DESCRIPTION OF PROCEDURE: The patient was brought into the operating room. After induction of endotracheal anesthesia in a supine position, Owusu catheter was placed. G-Tube is draped sterilely off. His abdomen was prepped with chlorhexidine and draped sterilely. A time-out procedure was performed according to institutional standards. Local anesthetic 0.5% Marcaine was infused in skin and subcutaneous tissues and a laparotomy is made in the midline. Immediately noted is hemorrhagic bowel and a copious amount of bloody ascites. There is a band around the midportion of the mesentery, which is identified as the cause of the problem. The bowel was completely infarcted, therefore, a small bowel resection was performed prior to releasing the band to prevent toxin release. The TAMIA 55 is placed into the enterotomies made on the anti mesenteric surface of the small bowel and a [id number] functional end-to- end anastomosis was created using a single firing of that stapler. Another fire of the TAMIA 55 was used to close the enterotomies and divide the bowel to close this functional end-to-end anastomosis. LigaSure is then used to divide the mesentery, which was then passed off. The band was divided with LigaSure retractor and the mesenteric defect is then closed using 3-0 Vicryl. The abdomen was explored. There was no other pathology that is noted. The abdomen is aspirated of all the ascitic fluid. The bowel is run again. There are no signs of twisting or other areas of infarction, therefore, the abdomen is closed using #1 PDS in a running fashion. The skin was reapproximated after hemostasis and irrigation, using 4-0 Monocryl. Dermabond was applied. The patient was awaken, imminent extubation to the PACU in stable condition. Needle , instrument and sponge counts verified and correct x2. COMPLICATIONS: There were no complications. /[id number]/MODL MTDD
[2016-07-31 05:49] LABS: PLATELET ESTIMATE ADEQUATE (ADEQ)
[2016-07-31] MEDS: PETROLATUM WHITE LEFTEYE SCH ×4 (06:06→19:54)
[2016-07-31] MEDS: MINERAL OIL LEFTEYE SCH ×4 (06:06→19:54)
[2016-07-31] MEDS ORDERED: NS 500 ML IV ONE ×2 (08:30→16:11)
--- NOTE | 2016-07-31 08:40 | HOSPPROG ---
Hospitalist Progress Note Assessment/Plan: SBO - s/p ex lap and antrectomy, POD #1, management per Dr. Hanson. He has a PEG tube. Remains NPO. Leukocytosis - wbc's up to 34K from 23. No fevers. Discussed with Dr. Maldonado. His lactate is elevated, though this may all be related to necrotic bowel found at surgery. Surgery does not believe this is infectious and indeed it may be an inflammatory / stress response from recent bowel infarction and associated surgery. Abdominal exam is reassuring. Will draw blood cultures, hold atbx for now unless he develops fevers or has worsening condition. Trend wbc's and lactate. Hypotension - He became orthostatic while on commode with sbp in the 80's. Resolved when returned to bed. Bolus NS. Infection w/u as above, though suspect this is a volume issue. H/O CVA - Residual dysphagia with PEG. Will resume ASA when ok with surg. Note , pt has chronic right facial numbness and droop due to h/o trigeminal neuralgia. Hypertension - BP's actually low now as above. Holding Amlodipine. H/O A fib - HR up to 120's this am, EKG shows NSR. He is not on anticoagulation , suspect due to h/o subdural hematoma. Will resume ASA for CVA prevention once ok with surgery. DVT PPLX - Start Lovenox when 24 hrs post-op DNR Dispo - cont inpt Subjective: Pt is up on commode when I arrived, he is somnolent, not responding well. BP was in the 80's. Upon returning to bed, SBP improved to 110's and his mentation improved as well. Denies pain. No BM. No fevers. No N/V. Objective: Vital Signs Temp Pulse Resp BP Pulse Ox 36.4 C 89 18 88/53 L 95 07/31/16 08:00 07/31/16 08:00 07/31/16 08:00 07/31/16 08:15 07/31/16 08:00 Laboratory Results 07/31/16 04:35 07/31/16 04:35 07/30/16 07/31/16 08/01/16 05:59 05:59 05:59 Intake Total 1999 3810 Output Total 1180 Balance 1999 2630 PT 15.1 SEC (12.0-15.0) H 07/30/16 02:45 INR 1.19 (0.83-1.16) H 07/30/16 02:45 - Physical Exam Constitutional: no apparent distress Eyes: PERRL Ears, Nose, Mouth, Throat: moist mucous membranes Cardiovascular: regular rate and rhythym Respiratory: no respiratory distress, clear to auscultation Gastrointestinal: other (soft, nd, hypoactive BS, no significant TTP, no r/r/g or peritoneal signs) Skin: warm Musculoskeletal: generalized weakness Psychiatric: poor memory ICD10 Worksheet Patient Problems: Problems Problem Status Onset SBO (small bowel obstruction) Acute Acute chest pain Acute Aphasia Acute Dizziness Acute
[2016-07-31] MEDS ORDERED: MOXIFLOXACIN HCL RTEYE SCH (09:00)
[2016-07-31] MEDS ORDERED: DIFLUPREDNATE EACHEYE SCH (09:00)
[2016-07-31] MEDS ORDERED: ZIPRASIDONE MESYLATE 20 MG VIAL IM PRN (09:48)
[2016-07-31] MEDS: LR 1,000 ML IV SCH ×2 (10:19→17:42)
[2016-07-31] MEDS: (Difluprednate [Durezol] 1 DROP) EACHEYE SCH ×2 (10:21→12:02)
--- NOTE | 2016-07-31 10:22 | CPEKG ---
Heart Rate: 82 RR Interval: 732 P-R Interval: 216 QRSD Interval: 84 QT Interval: 380 QTC Interval: 444 P [place]: 62 QRS [place]: 68 T Wave [place]: -51 EKG Severity - BORDERLINE ECG - EKG Impression: SINUS RHYTHM EKG Impression: BORDERLINE T ABNORMALITIES, INFERIOR LEADS Electronically Signed By: Jose Patel 31-Jul-2016 15:53:06
[2016-07-31] MEDS ORDERED: PIPERACILLIN/TAZO 3.375 GM/DEX 50 ML IV SCH (12:00)
[2016-07-31] MEDS: MOXIFLOXACIN HCL RTEYE SCH ×2 (12:19→19:55)
[2016-07-31] MEDS: CARBOXYMETHYLCELLULOSE 0.5% 0.4 ML DROPERETTE RTEYE SCH ×2 (12:25→19:56)
[2016-07-31 16:46] LABS: ABSOLUTE IMMATURE GRANULOCYTES 0.24 10^3/uL (0.00-0.10); ADD DIFF? NO; ADD MORPH? NO; ADD SCAN? NO; ATYPICAL LYMPHOCYTE FLAG 0 (0-99); FRAGMENT RBC FLAG 0 (0-99); HEMATOCRIT 25.2 % (40.0-51.0); HEMOGLOBIN 8.6 g/dL (13.7-17.5); LEFT SHIFT FLG 40 (0-99); LIPEMIA HEMOLYSIS FLAG 90 (0-99); MEAN CELL HEMOGLOBIN 33.9 pg (27.9-34.1); MEAN CELL HEMOGLOBIN CONCENTR. 34.1 g/dL (32.4-36.7); MEAN CELL VOLUME 99.2 fL (81.5-99.8); MEAN PLATELET VOLUME 11.3 fL (8.7-11.7); PLATELET CLUMPS FLAG 0 (0-99); PLATELET COUNT 147 10^3/uL (150-400); RED BLOOD CELL COUNT 2.54 10^6/uL (4.40-6.38); RED CELL DISTRIBUTION WIDTH 13.8 % (11.5-15.2)
[2016-08-01] MEDS: LR 1,000 ML IV SCH ×3 (00:58→21:44)
[2016-08-01 05:10] LABS: % IMMATURE GRANULYOCYTES 0.9 % (0.0-1.1); ABSOLUTE IMMATURE GRANULOCYTES 0.21 10^3/uL (0.00-0.10); ADD DIFF? NO; ADD MORPH? NO; ADD SCAN? NO; ATYPICAL LYMPHOCYTE FLAG 0 (0-99); FRAGMENT RBC FLAG 0 (0-99); HEMATOCRIT 23.1 % (40.0-51.0); HEMOGLOBIN 7.7 g/dL (13.7-17.5); LEFT SHIFT FLG 10 (0-99); LIPEMIA HEMOLYSIS FLAG 80 (0-99); MEAN CELL HEMOGLOBIN 33.2 pg (27.9-34.1); MEAN CELL HEMOGLOBIN CONCENTR. 33.3 g/dL (32.4-36.7); MEAN CELL VOLUME 99.6 fL (81.5-99.8); MEAN PLATELET VOLUME 11.5 fL (8.7-11.7); PLATELET CLUMPS FLAG 0 (0-99); PLATELET COUNT 127 10^3/uL (150-400); RED BLOOD CELL COUNT 2.32 10^6/uL (4.40-6.38); RED CELL DISTRIBUTION WIDTH 13.9 % (11.5-15.2)
[2016-08-01 05:22] LABS: ANION GAP 6 mEq/L (8-16); CARBON DIOXIDE 27 mEq/l (22-31); CHLORIDE 108 mEq/L (97-110); CREATININE 0.7 mg/dL (0.7-1.3); GLOMERULAR FILTRATION RATE > 60; GLUCOSE 119 mg/dL (70-100); POTASSIUM 3.9 mEq/L (3.5-5.2); SODIUM 141 mEq/L (134-144)
[2016-08-01] MEDS: MINERAL OIL LEFTEYE SCH ×4 (05:58→21:32)
[2016-08-01] MEDS: PETROLATUM WHITE LEFTEYE SCH ×4 (05:58→21:32)
[2016-08-01] MEDS: MOXIFLOXACIN HCL RTEYE SCH ×2 (08:06→21:32)
[2016-08-01] MEDS: ENOXAPARIN 40 MG/0.4 ML SYR SC SCH (08:06)
[2016-08-01] MEDS: CARBOXYMETHYLCELLULOSE 0.5% 0.4 ML DROPERETTE RTEYE SCH ×2 (08:23→21:32)
--- NOTE | 2016-08-01 09:07 | SOAPPROG ---
SOAP Progress Note Assessment/Plan: Assessment: POD 2 s/p exploratory lap/ enterectomy for SBO. Patient sitting at side of bed. Denies flatus or BM. Dizziness with standing over last couple of days. Pain controlled. PEG tube in place (dysphagia w/ liquids, tolerates oral solids). Cortez catheter in place. BP 160/62, HR 80-100s, afeb, 94% 2L, WBC 23 (25), H/H 7.7/ 23 (8.6/25), plt 127 (147), lytes normal, BUN/ Creat 32, Gluc 119. alert / appropriate, abd soft, mildly distended, incision- clean, dry, intact. Plan: decr H/H- transfuse 2 units PRBC today- will give lasix between. Leave cortez catheter today for accurate urine output give hypotension following surgery. Start thickened liquids. Plan: 08/01/16 09:03 Objective: Vital Signs Temp Pulse Resp BP Pulse Ox 36.9 C 89 18 161/62 H 94 08/01/16 07:34 08/01/16 07:34 08/01/16 07:34 08/01/16 07:34 08/01/16 07:34 Laboratory Results 08/01/16 04:20 08/01/16 04:20 07/31/16 08/01/16 08/02/16 05:59 05:59 05:59 Intake Total 3810 3880 Output Total 1180 1825 Balance 2630 2055 PT 15.1 SEC (12.0-15.0) H 07/30/16 02:45 INR 1.19 (0.83-1.16) H 07/30/16 02:45 ICD10 Worksheet Patient Problems: Problems Problem Status Onset SBO (small bowel obstruction) Acute Acute chest pain Acute Aphasia Acute Dizziness Acute
[2016-08-01] MEDS ORDERED: FUROSEMIDE 20 MG/2 ML VIAL IVP ONE (09:09)
--- NOTE | 2016-08-01 10:40 | HOSPPROG ---
Hospitalist Progress Note Assessment/Plan: SBO - s/p ex lap and antrectomy, POD #2, management per surgery. He has a PEG tube. Will start thickend liquids per surgery. Cortez present. Leukocytosis - wbc's trending down. Lactate normalized. Suspect leukocytosis and elevated lactate was secondary to necrotic bowel and associated stress response. No fevers. Hypotension - Improved with fluid boluses. This was likely due to volume depletion post-operatively. No longer orthostatic. Hematuria - mild, trend H&H. May require urology f/u if persists. Acute blood loss anemia - post-op hgb 7.7, 2 units prbc's to be transfused per surgery. H/O CVA - Residual dysphagia with PEG. Will resume ASA when ok with surg. Note , pt has chronic right facial numbness and droop due to h/o trigeminal neuralgia. Hypertension - BP's actually low now as above. Holding Amlodipine. H/O A fib - HR up to 120's this am, EKG shows NSR. He is not on anticoagulation , suspect due to h/o subdural hematoma. Will resume ASA for CVA prevention once ok with surgery. DVT PPLX - Hold Lovenox due to hematuria / anemia, cont SCD's DNR Dispo - cont inpt Subjective: Pt doing better this am. Up in chair. Denies abdominal pain, CP or SOB. No fevers. He had a "smear" BM this am. Blood tinged urine in cortez catheter. Objective: Vital Signs Temp Pulse Resp BP Pulse Ox 36.9 C 89 18 139/72 H 94 08/01/16 07:34 08/01/16 07:34 08/01/16 07:34 08/01/16 09:30 08/01/16 07:34 Laboratory Results 08/01/16 04:20 08/01/16 04:20 07/31/16 08/01/16 08/02/16 05:59 05:59 05:59 Intake Total 3810 3880 Output Total 1180 1825 Balance 2630 2055 PT 15.1 SEC (12.0-15.0) H 07/30/16 02:45 INR 1.19 (0.83-1.16) H 07/30/16 02:45 - Physical Exam Constitutional: no apparent distress Eyes: PERRL Ears, Nose, Mouth, Throat: moist mucous membranes Cardiovascular: regular rate and rhythym Respiratory: no respiratory distress, clear to auscultation Gastrointestinal: other (soft, mild distention, minimal TTP, no r/r/g, incision c/d/i, hypoactive BS) Skin: warm Musculoskeletal: generalized weakness Neurologic: AAOx3 Psychiatric: interacting appropriately ICD10 Worksheet Patient Problems: Problems Problem Status Onset SBO (small bowel obstruction) Acute Acute chest pain Acute Aphasia Acute Dizziness Acute
[2016-08-01] MEDS: (Difluprednate [Durezol] 1 DROP) EACHEYE SCH (13:52)
[2016-08-01] MEDS ORDERED: FUROSEMIDE 20 MG/2 ML VIAL ONE (15:36)
[2016-08-01] MEDS ORDERED: ACETAMINOPHEN 500 MG TAB PO ONE (16:45)
[2016-08-01 18:43] LABS: % IMMATURE GRANULYOCYTES 0.9 % (0.0-1.1); ABSOLUTE IMMATURE GRANULOCYTES 0.22 10^3/uL (0.00-0.10); ADD DIFF? NO; ADD MORPH? NO; ADD SCAN? NO; ATYPICAL LYMPHOCYTE FLAG 0 (0-99); FRAGMENT RBC FLAG 0 (0-99); HEMATOCRIT 26.1 % (40.0-51.0); HEMOGLOBIN 9.1 g/dL (13.7-17.5); LEFT SHIFT FLG 10 (0-99); LIPEMIA HEMOLYSIS FLAG 90 (0-99); MEAN CELL HEMOGLOBIN 33.6 pg (27.9-34.1); MEAN CELL HEMOGLOBIN CONCENTR. 34.9 g/dL (32.4-36.7); MEAN CELL VOLUME 96.3 fL (81.5-99.8); MEAN PLATELET VOLUME 11.4 fL (8.7-11.7); PLATELET CLUMPS FLAG 0 (0-99); PLATELET COUNT 143 10^3/uL (150-400); RED BLOOD CELL COUNT 2.71 10^6/uL (4.40-6.38); RED CELL DISTRIBUTION WIDTH 14.7 % (11.5-15.2)
[2016-08-01 19:02] LABS: BILIRUBIN,TOTAL 2.3 mg/dL (0.1-1.4); LACTATE DEHYDROGENASE 561 IU/L (313-618)
[2016-08-01 21:34] LABS: BILIRUBIN-CONJUGATED 0.7 mg/dL (0.0-0.5); BILIRUBIN-UNCONJUGATED 1.6 mg/dL (0.0-1.1)
[2016-08-02] MEDS ORDERED: CEFEPIME HCL 1 GM in D5W 50 ML IV ONE (00:07)
[2016-08-02 05:08] LABS: HEMATOCRIT 23.8 % (40.0-51.0); HEMOGLOBIN 8.2 g/dL (13.7-17.5); MEAN CELL HEMOGLOBIN 33.3 pg (27.9-34.1); MEAN CELL HEMOGLOBIN CONCENTR. 34.5 g/dL (32.4-36.7); MEAN CELL VOLUME 96.7 fL (81.5-99.8); RED BLOOD CELL COUNT 2.46 10^6/uL (4.40-6.38); RED CELL DISTRIBUTION WIDTH 14.8 % (11.5-15.2)
[2016-08-02 05:21] LABS: ANION GAP 7 mEq/L (8-16); CALCIUM 8.2 mg/dL (8.5-10.4); CARBON DIOXIDE 27 mEq/l (22-31); CHLORIDE 109 mEq/L (97-110); CREATININE 0.7 mg/dL (0.7-1.3); GLOMERULAR FILTRATION RATE > 60; GLUCOSE 117 mg/dL (70-100); POTASSIUM 3.3 mEq/L (3.5-5.2); SODIUM 143 mEq/L (134-144)
[2016-08-02] MEDS: MINERAL OIL LEFTEYE SCH ×4 (05:42→22:51)
[2016-08-02] MEDS: PETROLATUM WHITE LEFTEYE SCH ×4 (05:42→22:51)
[2016-08-02] MEDS: LR 1,000 ML IV SCH (05:43)
[2016-08-02] MEDS ORDERED: CEFEPIME HCL 1 GM in D5W 50 ML IV SCH (06:00)
[2016-08-02] MEDS: CARBOXYMETHYLCELLULOSE 0.5% 0.4 ML DROPERETTE RTEYE SCH ×2 (08:00→22:51)
[2016-08-02] MEDS: MOXIFLOXACIN HCL RTEYE SCH ×2 (08:02→22:51)
--- NOTE | 2016-08-02 08:28 | WOCRNPDOC ---
WOCRN Advanced Assessment Note - Skin Integrity Problem, Advanced Assess Right Medial Buttock Dressing Type: Allevyn Life Site Measurement - Head-to-Toe Length X Width X Depth (cm): 1.5x1.5x0 Skin Integrity Problem Comment: Healed full thickness wound of unknown origin. May have either been a pressure injury/friction. No wound at this time. Offload area and apply barrier cream. Please reconsult prn. Coccyx Dressing Type: Allevyn Life Site Measurement - Head-to-Toe Length X Width X Depth (cm): 0.6x0.2x0.1 Skin Integrity Problem Comment: No pressure. Intertriginous dermatitis. Apply barrier cream. Reduce layers. Please reconsult prn.
[2016-08-02] MEDS ORDERED: POTASSIUM CL 20 MEQ TAB PO ONE (09:19)
--- NOTE | 2016-08-02 09:34 | HOSPPROG ---
Hospitalist Progress Note Assessment/Plan: SBO - s/p ex lap and antrectomy, POD #3, management per surgery. He has a PEG tube, though taking some oral, on wired jaw diet. KAYKAY HUGHES today. Leukocytosis - wbc's trending down. Lactate normalized. Suspect leukocytosis and elevated lactate was secondary to necrotic bowel and associated stress response. Had low grade fever last night, which has not persisted. Suspect atelectatic fever versus non-hemolytic febrile transfusion reaction. Given tylenol. Hypoxemia - CXR shows bibasilar infiltrates L>R. Suspect atelectasis. He did receive a dose of Cefepime overnight due to elevated PCT and concern for HCAP. However, his PCT could be elevated from his bowel surgery with necrotic bowel. I do not think he has bacterial pneumonia. No cough. His O2 requirement is down to 1 LPM this am with use of IS and deeper breaths. Will closely monitor his temperature curve and BCx's. Stop atbx. Hypotension - Improved with fluid boluses. This was likely due to volume depletion post-operatively. No longer orthostatic. Hematuria - Resolved. Acute blood loss anemia - post-op hgb 7.7, s/p 1 u prbc's, hgb now 8.2. Had some issues with transfusion (low grade fever, increased O2 requirement- again, could be explained by atelectasis with poor respiratory effort). Would defer further transfusions unless hgb <7 or e/o active bleeding or hemodynamic instability. H/O CVA - Residual dysphagia with PEG. Will resume ASA when ok with surg. Note , pt has chronic right facial numbness and droop due to h/o trigeminal neuralgia. VFSS tomorrow per speech. Hypertension - BP's actually low now as above. Holding Amlodipine. H/O A fib - Rate controlled, EKG shows NSR. He is not on anticoagulation, suspect due to h/o subdural hematoma. Will resume ASA for CVA prevention once ok with surgery. DVT PPLX - Resume Lovenox, ok'd by surg. DNR Dispo - cont inpt Subjective: Pt doing much better this am. Had low grade temp 100.7 after transfusion yesterday. Also increased O2 requirement to 5 LPM last night. Now down to 1 LPM. Feeling well. Mentating clearly. Denies cough, CP or SOB. No fevers overnight. Taking thickened liquids. Some smearish BM's. No abdominal pain, N/V. Objective: Vital Signs Temp Pulse Resp BP Pulse Ox 36.6 C 81 14 138/71 H 93 08/02/16 07:49 08/02/16 07:49 08/02/16 03:33 08/02/16 07:49 08/02/16 07:49 Laboratory Results 08/02/16 04:29 08/02/16 04:29 08/01/16 08/02/16 08/03/16 05:59 05:59 05:59 Intake Total 3880 1693 Output Total 1825 3275 Balance 2055 -1582 PT 15.1 SEC (12.0-15.0) H 07/30/16 02:45 INR 1.19 (0.83-1.16) H 07/30/16 02:45 - Physical Exam Constitutional: no apparent distress Eyes: PERRL Ears, Nose, Mouth, Throat: moist mucous membranes Cardiovascular: regular rate and rhythym, no murmur, rub, or gallop Respiratory: no respiratory distress, other (faint bibasilar atelectatic crackles, improves with deep breaths) Gastrointestinal: normoactive bowel sounds, soft, non-tender abdomen Skin: warm Musculoskeletal: generalized weakness Psychiatric: interacting appropriately ICD10 Worksheet Patient Problems: Problems Problem Status Onset SBO (small bowel obstruction) Acute Acute chest pain Acute Aphasia Acute Dizziness Acute
[2016-08-02] MEDS: POTASSIUM Cl (KCl) 100 ML IV SCH ×3 (09:39→23:43)
--- NOTE | 2016-08-02 10:38 | SOAPPROG ---
SOAP Progress Note Assessment/Plan: Assessment/Plan: Mr. Mcmanus is an 85-year-old gentleman POD#2 s/p. Procalcitonin 0.58 cefepime given initially no infection found will d/c per Dr Edwards ?transfusion rxn yesterday Still anemic likely acute on chronic blood loss anemia. Monitor. Leucocytosis inflammation not infection expect decrease over the next week CXR effusions/atelectasis RRR CTA Abd soft NT, ND incision c/d/i No edema Good peripheral pulses Improving slowly post laparotomy for adhesive band causing ischemic bowel Monitor CBC Adv to regular. Free water via PEG OOB may require PT Encourage IS D/C cortez - family reports some urinary difficulty-spasm/urgency will reassess 07/30/16 17:26 08/02/16 10:31 Objective: Vital Signs Temp Pulse Resp BP Pulse Ox 36.6 C 81 14 138/71 H 93 08/02/16 07:49 08/02/16 07:49 08/02/16 03:33 08/02/16 07:49 08/02/16 07:49 Laboratory Results 08/02/16 04:29 08/02/16 04:29 08/01/16 08/02/16 08/03/16 05:59 05:59 05:59 Intake Total 3880 1693 Output Total 1825 3275 Balance 2055 -1582 PT 15.1 SEC (12.0-15.0) H 07/30/16 02:45 INR 1.19 (0.83-1.16) H 07/30/16 02:45 ICD10 Worksheet Patient Problems: Problems Problem Status Onset SBO (small bowel obstruction) Acute Acute chest pain Acute Aphasia Acute Dizziness Acute
[2016-08-02] MEDS: (Difluprednate [Durezol] 1 DROP) RTEYE SCH (13:26)
[2016-08-02] MEDS ORDERED: PROTOCOL POTASSIUM 1 DOSE MISC PRN (17:39)
[2016-08-02 19:12] LABS: POTASSIUM 3.1 mEq/L (3.5-5.2)
[2016-08-02 23:32] LABS: HEMATOCRIT 23.3 % (40.0-51.0); HEMOGLOBIN 7.9 g/dL (13.7-17.5)
[2016-08-03] MEDS ORDERED: NS 1,000 ML IV ONE (00:23)
[2016-08-03] MEDS ORDERED: DILTIAZEM 25 MG/5 ML VIAL IVP ONE ×2 (01:30→10:45)
[2016-08-03] MEDS: POTASSIUM Cl (KCl) 100 ML IV SCH ×7 (02:32→14:45)
[2016-08-03 05:35] LABS: % IMMATURE GRANULYOCYTES 0.8 % (0.0-1.1); ABSOLUTE IMMATURE GRANULOCYTES 0.11 10^3/uL (0.00-0.10); ADD DIFF? NO; ADD MORPH? NO; ADD SCAN? NO; ATYPICAL LYMPHOCYTE FLAG 0 (0-99); FRAGMENT RBC FLAG 0 (0-99); HEMATOCRIT 23.3 % (40.0-51.0); LEFT SHIFT FLG 20 (0-99); LIPEMIA HEMOLYSIS FLAG 90 (0-99); MEAN CELL HEMOGLOBIN 33.3 pg (27.9-34.1); MEAN CELL HEMOGLOBIN CONCENTR. 34.3 g/dL (32.4-36.7); MEAN CELL VOLUME 97.1 fL (81.5-99.8); MEAN PLATELET VOLUME 11.7 fL (8.7-11.7); PLATELET CLUMPS FLAG 0 (0-99); PLATELET COUNT 133 10^3/uL (150-400); RED CELL DISTRIBUTION WIDTH 14.6 % (11.5-15.2)
[2016-08-03 05:49] LABS: ANION GAP 5 mEq/L (8-16); CALCIUM 7.7 mg/dL (8.5-10.4); CARBON DIOXIDE 27 mEq/l (22-31); CHLORIDE 110 mEq/L (97-110); CREATININE 0.6 mg/dL (0.7-1.3); GLOMERULAR FILTRATION RATE > 60; GLUCOSE 118 mg/dL (70-100); POTASSIUM 3.2 mEq/L (3.5-5.2); SODIUM 142 mEq/L (134-144)
[2016-08-03] MEDS: PETROLATUM WHITE LEFTEYE SCH ×4 (06:10→20:41)
[2016-08-03] MEDS: MINERAL OIL LEFTEYE SCH ×4 (06:10→20:41)
[2016-08-03] MEDS: ENOXAPARIN 40 MG/0.4 ML SYR SC SCH (07:53)
[2016-08-03] MEDS: MOXIFLOXACIN HCL RTEYE SCH ×2 (07:55→20:42)
--- NOTE | 2016-08-03 08:16 | HOSPPROG ---
Hospitalist Progress Note Assessment/Plan: Called to bedside overnight for abnormal vital signs- pt developed tachycardia HR in 160's Patient is denying any new complaints on interview - abdominal pain is stable 110/70 (165) rr 20 91% on 1L A&O x3 irreg irreg tachycardic BS clear bilaterally Abd tender diffusely pulses bilateral LE TELE (personally reviewed and interpreted) atrial fibrillation with RVR potassium 3.1 # Acute Atrial Fibrillation w/ RVR - pt this history of Afib previously rate controlled prior during hospital- maintaining BP - NS bolus running with persistent tachycardia in 170's - diltiazem 10mg x 1 ordered and ultimately not given as pt converted prior to administration - cont IVF now - replete electrolytes I spent > 30 minutes in direct patient care/critical care. Objective: Vital Signs Temp Pulse Resp BP Pulse Ox 36.3 C 78 14 131/53 H 93 08/03/16 04:00 08/03/16 04:00 08/03/16 04:00 08/03/16 04:00 08/03/16 04:00 Laboratory Results 08/03/16 04:32 08/03/16 04:32 08/02/16 08/03/16 08/04/16 05:59 05:59 05:59 Intake Total 1693 Output Total 3275 Balance -1582 PT 15.1 SEC (12.0-15.0) H 07/30/16 02:45 INR 1.19 (0.83-1.16) H 07/30/16 02:45 ICD10 Worksheet Patient Problems: Problems Problem Status Onset SBO (small bowel obstruction) Acute Acute chest pain Acute Aphasia Acute Dizziness Acute
[2016-08-03] MEDS ORDERED: POTASSIUM CL 20 MEQ TAB PO ONE (08:19)
--- NOTE | 2016-08-03 08:19 | HOSPPROG ---
Hospitalist Progress Note Assessment/Plan: SBO - s/p ex lap and enterectomy, POD #4, management per surgery. He has a PEG tube, NPO due to aspiration risk. OOB, cortez d/c'd yesterday. Leukocytosis - wbc's trending down. Lactate normalized. Suspect leukocytosis and elevated lactate was secondary to necrotic bowel and associated stress response. Had a low grade fever 2 d ago, which has not persisted. Suspect atelectatic fever versus non-hemolytic febrile transfusion reaction as this occurred after prbc tx. Treated with tylenol. Hypoxemia - Now on room air. CXR showed bibasilar infiltrates L>R. Suspect atelectasis. He received a dose of Cefepime due to elevated PCT and concern for HCAP. However, his PCT could be elevated from his bowel surgery with necrotic bowel. I do not think he has bacterial pneumonia. No cough. His O2 requirement is resolved. Will closely monitor his temperature curve and BCx's. Cont to monitor off atbx. A fib RVR - recurrent episodes this am. IV dilt bolus and will start oral dilt for rate control. On ASA as outpt for CVA prevention (h/o subdural bleed). Will resume, ok'd by surg. Hypotension - Improved with fluid boluses. This was likely due to volume depletion post-operatively. No longer orthostatic. Hematuria - Resolved. Rectal bleeding - likely old blood as he had hemorrhagic bowel per op note. hgb stable. Acute blood loss anemia - post-op hgb 7.7, s/p 1 u prbc's, hgb now 8.0. Had some issues with transfusion (low grade fever, increased O2 requirement- again, could be explained by atelectasis with poor respiratory effort). Would defer further transfusions unless hgb <7 or e/o active bleeding or hemodynamic instability. H/O CVA - Residual dysphagia with PEG. Currently NPO per speech. Resume ASA as above. Note, pt has chronic right facial numbness and droop due to h/o trigeminal neuralgia. Hypertension - BP's actually low now as above. Holding Amlodipine. DVT PPLX - Resume Lovenox, ok'd by surg. DNR Dispo - cont inpt Subjective: Pt up in chair. Doing a bit better. Having some dark blood in stool, small amount. No pain. No fevers. Objective: Vital Signs Temp Pulse Resp BP Pulse Ox 36.3 C 78 14 131/53 H 93 08/03/16 04:00 08/03/16 04:00 08/03/16 04:00 08/03/16 04:00 08/03/16 04:00 Laboratory Results 08/03/16 04:32 08/03/16 04:32 08/02/16 08/03/16 08/04/16 05:59 05:59 05:59 Intake Total 1693 Output Total 3275 Balance -1582 PT 15.1 SEC (12.0-15.0) H 07/30/16 02:45 INR 1.19 (0.83-1.16) H 07/30/16 02:45 - Physical Exam Constitutional: no apparent distress Eyes: PERRL Ears, Nose, Mouth, Throat: moist mucous membranes Cardiovascular: irregularly irregular, tachycardia Respiratory: no respiratory distress Gastrointestinal: normoactive bowel sounds, soft, non-tender abdomen Skin: warm Musculoskeletal: full muscle strength Psychiatric: poor memory ICD10 Worksheet Patient Problems: Problems Problem Status Onset SBO (small bowel obstruction) Acute Acute chest pain Acute Aphasia Acute Dizziness Acute
[2016-08-03] MEDS ORDERED: POTASSIUM CL 20 MEQ/15 ML UDCUP PO ONE (10:45)
[2016-08-03] MEDS ORDERED: FLUOXETINE HCL 20 MG TUBE SCH (11:00)
[2016-08-03] MEDS ORDERED: ATORVASTATIN CALCIUM 20 MG TAB TUBE SCH (11:00)
--- NOTE | 2016-08-03 11:43 | CPEKG ---
Heart Rate: 139 RR Interval: 432 QRSD Interval: 86 QT Interval: 276 QTC Interval: 420 QRS [place]: 58 T Wave [place]: 245 EKG Severity - ABNORMAL ECG - EKG Impression: ATRIAL FIBRILLATION EKG Impression: Frequent PVC EKG Impression: LOW VOLTAGE IN FRONTAL LEADS EKG Impression: REPOLARIZATION ABNORMALITY, PROB RATE RELATED Electronically Signed By: Jose Patel 03-Aug-2016 13:54:42
[2016-08-03] MEDS: EZETIMIBE 10 MG TAB TUBE SCH (12:52)
[2016-08-03] MEDS: CARBOXYMETHYLCELLULOSE 0.5% 0.4 ML DROPERETTE RTEYE SCH ×2 (12:54→20:42)
[2016-08-03] MEDS: FLUoxetine 20 MG CAP TUBE SCH (13:33)
[2016-08-03] MEDS: (Difluprednate [Durezol] 1 DROP) RTEYE SCH (13:36)
[2016-08-03] MEDS: DILTIAZEM 30 MG TAB PO SCH ×2 (13:42→18:38)
[2016-08-03] MEDS: ASPIRIN 325 MG TAB PO SCH (16:46)
--- NOTE | 2016-08-03 16:49 | CPEKG ---
Heart Rate: 86 RR Interval: 698 P-R Interval: 196 QRSD Interval: 80 QT Interval: 320 QTC Interval: 383 P [place]: 71 QRS [place]: 70 T Wave [place]: -79 EKG Severity - ABNORMAL ECG - EKG Impression: SINUS TACHYCARDIA EKG Impression: PAIRED VENTRICULAR PREMATURE COMPLEXES EKG Impression: LOW VOLTAGE IN FRONTAL LEADS Electronically Signed By: Emily Damon 04-Aug-2016 00:53:50
--- NOTE | 2016-08-03 18:48 | SOAPPROG ---
SOAP Progress Note Assessment/Plan: Assessment/Plan: Mr. Mcmanus is an 85-year-old gentleman POD#2 s/p. Still anemic likely acute on chronic blood loss anemia. Leucocytosis inflammation not infection expect decrease over the next week Afib overnight started on CCB Converted to sinus with PVC's TF started melanotic stool OOB with assist RRR CTA Abd soft NT, ND incision c/d/i No edema Good peripheral pulses Improving slowly post laparotomy for adhesive band causing ischemic bowel Monitor CBC Afib new onset converted chemically Free water/TF/meds via PEG OOB with PT Encourage IS Anticipate d/c to rehab early next week Pathology d/w pt and family Dr Gould to see over the weekend 08/03/16 18:48 Objective: Vital Signs Temp Pulse Resp BP Pulse Ox 36.9 C 84 16 129/50 H 93 08/03/16 16:00 08/03/16 18:38 08/03/16 16:00 08/03/16 18:38 08/03/16 16:00 Laboratory Results 08/03/16 04:32 08/03/16 04:32 08/02/16 08/03/16 08/04/16 05:59 05:59 05:59 Intake Total 1693 Output Total 3275 Balance -1582 PT 15.1 SEC (12.0-15.0) H 07/30/16 02:45 INR 1.19 (0.83-1.16) H 07/30/16 02:45 ICD10 Worksheet Patient Problems: Problems Problem Status Onset SBO (small bowel obstruction) Acute Acute chest pain Acute Aphasia Acute Dizziness Acute
[2016-08-03 19:08] LABS: POTASSIUM 3.2 mEq/L (3.5-5.2)
[2016-08-03] MEDS ORDERED: POTASSIUM Cl (KCl) 100 ML IV SCH (21:19)
[2016-08-03] MEDS ORDERED: POTASSIUM CL 20 MEQ/15 ML UDCUP TUBE ONE (21:45)
[2016-08-04] MEDS: DILTIAZEM 30 MG TAB PO SCH ×5 (00:41→23:06)
[2016-08-04 05:26] LABS: % IMMATURE GRANULYOCYTES 0.7 % (0.0-1.1); ABSOLUTE IMMATURE GRANULOCYTES 0.09 10^3/uL (0.00-0.10); ABSOLUTE NRBC COUNT 0.03 10^3/uL (0-0.01); ADD DIFF? NO; ADD MORPH? NO; ADD SCAN? NO; ATYPICAL LYMPHOCYTE FLAG 0 (0-99); FRAGMENT RBC FLAG 0 (0-99); HEMATOCRIT 24.5 % (40.0-51.0); HEMOGLOBIN 8.4 g/dL (13.7-17.5); LEFT SHIFT FLG 10 (0-99); LIPEMIA HEMOLYSIS FLAG 90 (0-99); MEAN CELL HEMOGLOBIN 33.1 pg (27.9-34.1); MEAN CELL HEMOGLOBIN CONCENTR. 34.3 g/dL (32.4-36.7); MEAN CELL VOLUME 96.5 fL (81.5-99.8); MEAN PLATELET VOLUME 11.7 fL (8.7-11.7); NRBC-AUTO% 0.2 % (0.0-0.2); PLATELET CLUMPS FLAG 0 (0-99); PLATELET COUNT 160 10^3/uL (150-400); RED BLOOD CELL COUNT 2.54 10^6/uL (4.40-6.38); RED CELL DISTRIBUTION WIDTH 14.2 % (11.5-15.2)
[2016-08-04 05:45] LABS: ANION GAP 6 mEq/L (8-16); CALCIUM 8.2 mg/dL (8.5-10.4); CARBON DIOXIDE 25 mEq/l (22-31); CHLORIDE 110 mEq/L (97-110); CREATININE 0.6 mg/dL (0.7-1.3); GLOMERULAR FILTRATION RATE > 60; GLUCOSE 124 mg/dL (70-100); POTASSIUM 3.3 mEq/L (3.5-5.2); SODIUM 141 mEq/L (134-144)
[2016-08-04] MEDS ORDERED: POTASSIUM CL 10 MEQ TAB PO ONE ×2 (06:08→19:24)
[2016-08-04] MEDS: MINERAL OIL LEFTEYE SCH ×4 (06:27→20:19)
[2016-08-04] MEDS: PETROLATUM WHITE LEFTEYE SCH ×4 (06:27→20:19)
[2016-08-04] MEDS ORDERED: POTASSIUM CL 20 MEQ/15 ML UDCUP PO ONE (06:30)
[2016-08-04] MEDS ORDERED: ALPRAZolam 0.5 MG TAB PO PRN (10:21)
[2016-08-04] MEDS: FLUoxetine 20 MG CAP TUBE SCH (10:27)
[2016-08-04] MEDS: ENOXAPARIN 40 MG/0.4 ML SYR SC SCH (10:27)
[2016-08-04] MEDS: EZETIMIBE 10 MG TAB TUBE SCH (10:28)
[2016-08-04] MEDS: CARBOXYMETHYLCELLULOSE 0.5% 0.4 ML DROPERETTE RTEYE SCH ×2 (10:28→20:19)
[2016-08-04] MEDS: MOXIFLOXACIN HCL RTEYE SCH ×2 (10:28→20:20)
[2016-08-04] MEDS: ASPIRIN 325 MG TAB PO SCH (10:28)
--- NOTE | 2016-08-04 11:58 | SOAPPROG ---
SOAP Progress Note Assessment/Plan: Assessment: POD#7 s/p SBR no new overnight issues. pain controlled. still unable to swallow adeq. bm less melanotic - slowing down. tolerating TF well. no new afib issues - has remained converted. prozac restarted yesterday. notes decreased mental agility since hospitalization. Afebrile, VSS ambulating and up in chair - comfortable abd dist, soft. incis clean. G tube secure ext no edema neuro alert, appropriate Hb 8.4. K 3.3. slow progress cont supportive care, TF, PT/OT/ST. K supplementation rehab planning in process apprec hospitalist input 08/04/16 11:59 Objective: Vital Signs Temp Pulse Resp BP Pulse Ox 36.8 C 81 24 H 157/60 H 93 08/04/16 08:00 08/04/16 08:00 08/04/16 08:00 08/04/16 08:00 08/04/16 08:00 Laboratory Results 08/04/16 04:32 08/04/16 04:32 08/03/16 08/04/16 08/05/16 05:59 05:59 05:59 Intake Total 2079 Output Total 67 Balance 2011 PT 15.1 SEC (12.0-15.0) H 07/30/16 02:45 INR 1.19 (0.83-1.16) H 07/30/16 02:45 ICD10 Worksheet Patient Problems: Problems Problem Status Onset SBO (small bowel obstruction) Acute Acute chest pain Acute Aphasia Acute Dizziness Acute
[2016-08-04] MEDS: (Difluprednate [Durezol] 1 DROP) RTEYE SCH (12:53)
--- NOTE | 2016-08-04 15:35 | HOSPPROG ---
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 Objective: Vital Signs Temp Pulse Resp BP Pulse Ox 36.9 C 82 22 H 135/66 H 93 08/04/16 12:00 08/04/16 12:00 08/04/16 12:00 08/04/16 12:00 08/04/16 12:00 Laboratory Results 08/04/16 04:32 08/04/16 04:32 08/03/16 08/04/16 08/05/16 05:59 05:59 05:59 Intake Total 9 Output Total 67 Balance 2011 PT 15.1 SEC (12.0-15.0) H 07/30/16 02:45 INR 1.19 (0.83-1.16) H 07/30/16 02:45 EKG viewed, my personal interpretation is - sinus with PVC, no ischemia CXR - atelectasis - Physical Exam Constitutional: no apparent distress, appears nourished, not in pain Cardiovascular: regular rate and rhythym, no murmur, rub, or gallop Respiratory: no respiratory distress, no rales or rhonchi, clear to auscultation Gastrointestinal: normoactive bowel sounds, soft, non-tender abdomen, no palpable masses Musculoskeletal: full muscle strength, no muscle tenderness, normal joint ROM Neurologic: AAOx3, sensation intact bilaterally Psychiatric: interacting appropriately, not anxious, not encephalopathic, thought process linear ICD10 Worksheet Patient Problems: Problems Problem Status Onset SBO (small bowel obstruction) Acute Acute chest pain Acute Aphasia Acute Dizziness Acute
[2016-08-04 19:11] LABS: POTASSIUM 3.4 mEq/L (3.5-5.2)
[2016-08-04] MEDS ORDERED: POTASSIUM CL 20 MEQ/15 ML UDCUP TUBE ONE (19:30)
[2016-08-04] MEDS ORDERED: TAMSULOSIN HCL 0.4 MG CAP PO SCH (21:00)
[2016-08-04] MEDS ORDERED: NON-FORMULARY NEW DRUG (Oxybutynin Chloride [Ditropan Xl] 10 MG) PO SCH (21:00)
[2016-08-04] MEDS: TERAZOSIN HCL 1 MG CAP TUBE SCH ×2 (22:09→23:03)
[2016-08-04] MEDS: OXYBUTYNIN 5 MG EXT REL TAB PO SCH ×2 (22:11→23:06)
[2016-08-05 04:45] LABS: % IMMATURE GRANULYOCYTES 0.9 % (0.0-1.1); ABSOLUTE IMMATURE GRANULOCYTES 0.12 10^3/uL (0.00-0.10); ABSOLUTE NRBC COUNT 0.02 10^3/uL (0-0.01); ADD DIFF? NO; ADD MORPH? NO; ADD SCAN? NO; ATYPICAL LYMPHOCYTE FLAG 0 (0-99); FRAGMENT RBC FLAG 0 (0-99); HEMATOCRIT 24.3 % (40.0-51.0); HEMOGLOBIN 8.4 g/dL (13.7-17.5); LEFT SHIFT FLG 10 (0-99); LIPEMIA HEMOLYSIS FLAG 90 (0-99); MEAN CELL HEMOGLOBIN 33.3 pg (27.9-34.1); MEAN CELL HEMOGLOBIN CONCENTR. 34.6 g/dL (32.4-36.7); MEAN CELL VOLUME 96.4 fL (81.5-99.8); MEAN PLATELET VOLUME 11.5 fL (8.7-11.7); NRBC-AUTO% 0.1 % (0.0-0.2); PLATELET CLUMPS FLAG 0 (0-99); PLATELET COUNT 166 10^3/uL (150-400); RED BLOOD CELL COUNT 2.52 10^6/uL (4.40-6.38); RED CELL DISTRIBUTION WIDTH 14.4 % (11.5-15.2)
[2016-08-05 05:20] LABS: ANION GAP 5 mEq/L (8-16); CALCIUM 8.5 mg/dL (8.5-10.4); CARBON DIOXIDE 24 mEq/l (22-31); CHLORIDE 108 mEq/L (97-110); CREATININE 0.7 mg/dL (0.7-1.3); GLOMERULAR FILTRATION RATE > 60; GLUCOSE 139 mg/dL (70-100); MAGNESIUM 1.8 mg/dL (1.6-2.3); POTASSIUM 3.3 mEq/L (3.5-5.2); SODIUM 137 mEq/L (134-144)
[2016-08-05] MEDS: MINERAL OIL LEFTEYE SCH ×4 (05:56→21:21)
[2016-08-05] MEDS: PETROLATUM WHITE LEFTEYE SCH ×4 (05:56→21:21)
[2016-08-05] MEDS ORDERED: POTASSIUM CL 20 MEQ/15 ML UDCUP TUBE ONE ×2 (06:00→20:15)
[2016-08-05] MEDS: DILTIAZEM 30 MG TAB PO SCH ×3 (06:09→18:29)
[2016-08-05] MEDS: FLUoxetine 20 MG CAP TUBE SCH (08:16)
[2016-08-05] MEDS: CARBOXYMETHYLCELLULOSE 0.5% 0.4 ML DROPERETTE RTEYE SCH ×2 (08:17→21:20)
[2016-08-05] MEDS: EZETIMIBE 10 MG TAB TUBE SCH (08:17)
[2016-08-05] MEDS: OXYBUTYNIN 5 MG EXT REL TAB PO SCH ×2 (08:17→21:20)
[2016-08-05] MEDS: ASPIRIN 325 MG TAB PO SCH (08:17)
[2016-08-05] MEDS: ENOXAPARIN 40 MG/0.4 ML SYR SC SCH (08:17)
[2016-08-05] MEDS: MOXIFLOXACIN HCL RTEYE SCH ×2 (08:20→20:30)
[2016-08-05] MEDS ORDERED: PROTOCOL K PHOSPHATE 1 DOSE IV PRN (08:26)
[2016-08-05] MEDS ORDERED: OXYBUTYNIN CHLORIDE 5 MG PO SCH (09:00)
[2016-08-05] MEDS: POTASSIUM/SODIUM PHOSPHATE 1 PKT PO SCH ×4 (12:33→21:19)
--- NOTE | 2016-08-05 13:24 | HOSPPROG ---
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 - s/p SB resection * Dysphagia with chronic PEG - history of stroke -tube feeds * Afib with RVR -PO diltiazem -ASA (h/o subdural) * Metabolic encephalopathy -slow improvement * HTN -now on diltiazem instead of amlodipine * Trigeminal neuralgia with chronic facial droop Subjective: Loose stool, still confused Objective: Vital Signs Temp Pulse Resp BP Pulse Ox 36.7 C 76 18 120/52 L 96 08/05/16 11:15 08/05/16 11:15 08/05/16 11:15 08/05/16 11:15 08/05/16 11:15 Microbiology 07/31/16 09:00 Blood Culture - Final Blood Laboratory Results 08/05/16 04:24 08/05/16 04:24 08/04/16 08/05/16 08/06/16 05:59 05:59 05:59 Intake Total 2078 2280 240 Output Total Balance 20110 240 PT 15.1 SEC (12.0-15.0) H 07/30/16 02:45 INR 1.19 (0.83-1.16) H 07/30/16 02:45 - Physical Exam Constitutional: no apparent distress, appears nourished, not in pain Cardiovascular: regular rate and rhythym, no murmur, rub, or gallop Respiratory: no respiratory distress, no rales or rhonchi, clear to auscultation Gastrointestinal: normoactive bowel sounds, soft, non-tender abdomen, no palpable masses Skin: no rashes or abrasions, no fluctuance, no induration Neurologic: No AAOx3 Psychiatric: encephalopathic, flat affect, poor insight, poor judgement, poor memory ICD10 Worksheet Patient Problems: Problems Problem Status Onset SBO (small bowel obstruction) Acute Acute chest pain Acute Aphasia Acute Dizziness Acute
[2016-08-05] MEDS: (Difluprednate [Durezol] 1 DROP) RTEYE SCH (13:44)
[2016-08-05 19:19] LABS: POTASSIUM 3.8 mEq/L (3.5-5.2)
[2016-08-05] MEDS ORDERED: POTASSIUM Cl (KCl) 100 ML IV SCH (19:56)
[2016-08-05] MEDS ORDERED: POTASSIUM CL 10 MEQ TAB PO ONE (20:03)
[2016-08-05] MEDS: TERAZOSIN HCL 1 MG CAP TUBE SCH (21:20)
--- NOTE | 2016-08-05 21:24 | SOAPPROG ---
SOAP Progress Note Assessment/Plan: Assessment: POD#8 s/p SBR good night. pain controlled. swallowing feeling stronger. clearing throat better. bm brown. tolerating TF well. ambulating easier. more alert. Afebrile, VSS comfortable, moving strong from commode abd less dist, soft. incis clean. G tube secure ext no edema neuro alert, appropriate good overnight progress cont supportive care, TF, PT/OT/ST. K supplementation rehab planning in process apprec hospitalist input 08/04/16 11:59 08/05/16 21:22 Objective: Vital Signs Temp Pulse Resp BP Pulse Ox 36.7 C 68 16 134/55 H 92 08/05/16 19:18 08/05/16 19:18 08/05/16 19:18 08/05/16 19:18 08/05/16 19:18 Microbiology 07/31/16 10:05 Blood Culture - Final Blood 07/31/16 09:00 Blood Culture - Final Blood Laboratory Results 08/05/16 04:24 08/05/16 19:00 08/04/16 08/05/16 08/06/16 05:59 05:59 05:59 Intake Total 2078 2280 1358 Output Total 67 Balance 20110 1358 PT 15.1 SEC (12.0-15.0) H 07/30/16 02:45 INR 1.19 (0.83-1.16) H 07/30/16 02:45 ICD10 Worksheet Patient Problems: Problems Problem Status Onset SBO (small bowel obstruction) Acute Acute chest pain Acute Aphasia Acute Dizziness Acute
[2016-08-06] MEDS: DILTIAZEM 30 MG TAB PO SCH ×4 (00:13→16:55)
[2016-08-06 04:39] LABS: % IMMATURE GRANULYOCYTES 0.9 % (0.0-1.1); ABSOLUTE IMMATURE GRANULOCYTES 0.16 10^3/uL (0.00-0.10); ABSOLUTE NRBC COUNT 0.02 10^3/uL (0-0.01); ADD DIFF? NO; ADD MORPH? NO; ADD SCAN? NO; ATYPICAL LYMPHOCYTE FLAG 20 (0-99); FRAGMENT RBC FLAG 0 (0-99); HEMATOCRIT 24.5 % (40.0-51.0); HEMOGLOBIN 8.4 g/dL (13.7-17.5); LEFT SHIFT FLG 10 (0-99); LIPEMIA HEMOLYSIS FLAG 90 (0-99); MEAN CELL HEMOGLOBIN 33.5 pg (27.9-34.1); MEAN CELL HEMOGLOBIN CONCENTR. 34.3 g/dL (32.4-36.7); MEAN CELL VOLUME 97.6 fL (81.5-99.8); MEAN PLATELET VOLUME 10.7 fL (8.7-11.7); NRBC-AUTO% 0.1 % (0.0-0.2); PLATELET CLUMPS FLAG 0 (0-99); PLATELET COUNT 186 10^3/uL (150-400); RED BLOOD CELL COUNT 2.51 10^6/uL (4.40-6.38); RED CELL DISTRIBUTION WIDTH 15.4 % (11.5-15.2)
[2016-08-06 04:50] LABS: ANION GAP 5 mEq/L (8-16); CALCIUM 8.5 mg/dL (8.5-10.4); CARBON DIOXIDE 25 mEq/l (22-31); CHLORIDE 109 mEq/L (97-110); CREATININE 0.7 mg/dL (0.7-1.3); GLOMERULAR FILTRATION RATE > 60; GLUCOSE 124 mg/dL (70-100); POTASSIUM 3.7 mEq/L (3.5-5.2); SODIUM 139 mEq/L (134-144)
[2016-08-06] MEDS: PETROLATUM WHITE LEFTEYE SCH ×4 (06:11→20:43)
[2016-08-06] MEDS: MINERAL OIL LEFTEYE SCH ×4 (06:11→20:43)
[2016-08-06] MEDS: CARBOXYMETHYLCELLULOSE 0.5% 0.4 ML DROPERETTE RTEYE SCH ×2 (08:56→20:42)
[2016-08-06] MEDS: ASPIRIN 325 MG TAB PO SCH (08:56)
[2016-08-06] MEDS: OXYBUTYNIN 5 MG EXT REL TAB PO SCH ×2 (08:56→20:41)
[2016-08-06] MEDS: FLUoxetine 20 MG CAP TUBE SCH (08:56)
[2016-08-06] MEDS: ENOXAPARIN 40 MG/0.4 ML SYR SC SCH (08:56)
[2016-08-06] MEDS: EZETIMIBE 10 MG TAB TUBE SCH (08:56)
[2016-08-06] MEDS: POTASSIUM/SODIUM PHOSPHATE 1 PKT PO SCH (08:56)
[2016-08-06] MEDS: MOXIFLOXACIN HCL RTEYE SCH ×2 (09:05→20:43)
[2016-08-06] MEDS ORDERED: POTASSIUM CL 10 MEQ TAB PO ONE ×3 (11:02→20:05)
--- NOTE | 2016-08-06 13:21 | SOAPPROG ---
SOAP Progress Note Assessment/Plan: Assessment: POD 9 s/p exploratory lap/ enterectomy for SBO. Patient sitting in recliner. Denies burning with urination or shortness of breath. Pain controlled. PEG tube in place -tolerating tube feeds, complains of dry mouth. Currently NPO for aspiration concerns. BP 110/40's, HR 70s, afeb, 91% RA, WBC 17 (13), H/H 8.4/ 24.5, plt 186, lytes normal, BUN/ Creat 34/0.7, Gluc 124. alert/ appropriate, abd soft, less distended, incision- clean, dry, intact. Plan: check UA/CXR today for slight incr in WBC. discussed case with RN. Tentative plan for SNF tomorrow. Dr. Aguilera to see patient again tomorrow. Plan: 08/01/16 09:03 08/06/16 13:20 08/06/16 13:22 Objective: Vital Signs Temp Pulse Resp BP Pulse Ox 36.6 C 76 18 119/49 L 91 L 08/06/16 07:28 08/06/16 07:28 08/06/16 07:28 08/06/16 07:28 08/06/16 07:28 Microbiology 07/31/16 10:05 Blood Culture - Final Blood 07/31/16 09:00 Blood Culture - Final Blood Laboratory Results 08/06/16 04:29 08/06/16 04:29 08/05/16 08/06/16 08/07/16 05:59 05:59 05:59 Intake Total 2280 1358 Balance 2280 1358 PT 15.1 SEC (12.0-15.0) H 07/30/16 02:45 INR 1.19 (0.83-1.16) H 07/30/16 02:45 ICD10 Worksheet Patient Problems: Problems Problem Status Onset SBO (small bowel obstruction) Acute Acute chest pain Acute Aphasia Acute Dizziness Acute
[2016-08-06] MEDS: (Difluprednate [Durezol] 1 DROP) RTEYE SCH (13:29)
[2016-08-06 14:17] LABS: CLOSTRIDIUM DIFFICILE DNA POSITIVE (NEGATIVE)
[2016-08-06 14:18] LABS: PRINT OR CALL CRITICALS TECH CALL
[2016-08-06] MEDS: VANCOMYCIN 125 MG/2.5 ML UDL PO SCH ×2 (16:55→20:41)
[2016-08-06] MEDS ORDERED: guaiFENesin 200 MG/10 ML UDL PO PRN (17:39)
--- NOTE | 2016-08-06 17:40 | HOSPPROG ---
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 secretions Subjective: clincally better, stronger, less confused - lots of secretions Objective: Vital Signs Temp Pulse Resp BP Pulse Ox 36.8 C 90 18 119/49 L 74 L 08/06/16 15:46 08/06/16 15:46 08/06/16 15:46 08/06/16 15:46 08/06/16 15:46 Microbiology 07/31/16 10:05 Blood Culture - Final Blood Laboratory Results 08/06/16 04:29 08/06/16 04:29 08/05/16 08/06/16 08/07/16 05:59 05:59 05:59 Intake Total 2280 1358 Balance 2280 1358 PT 15.1 SEC (12.0-15.0) H 07/30/16 02:45 INR 1.19 (0.83-1.16) H 07/30/16 02:45 CXR viewed, my personal interpretation is - minimal infiltrate - Physical Exam Constitutional: no apparent distress, appears nourished, not in pain Cardiovascular: regular rate and rhythym, no murmur, rub, or gallop Respiratory: no respiratory distress, no rales or rhonchi, clear to auscultation Gastrointestinal: normoactive bowel sounds, soft, non-tender abdomen, no palpable masses Skin: no rashes or abrasions, no fluctuance, no induration Neurologic: AAOx3, sensation intact bilaterally Psychiatric: interacting appropriately, not anxious, not encephalopathic, thought process linear ICD10 Worksheet Patient Problems: Problems Problem Status Onset SBO (small bowel obstruction) Acute Acute chest pain Acute Aphasia Acute Dizziness Acute
[2016-08-06] MEDS ORDERED: IOPAMIDOL (ISOVUE 370) 100 ML BTL IV ONE (18:00)
[2016-08-06 18:52] LABS: POTASSIUM 3.6 mEq/L (3.5-5.2)
[2016-08-06] MEDS ORDERED: POTASSIUM CL 20 MEQ/15 ML UDCUP TUBE ONE (20:30)
[2016-08-06] MEDS: TERAZOSIN HCL 1 MG CAP TUBE SCH (20:41)
[2016-08-07] MEDS ORDERED: FUROSEMIDE 40 MG/4 ML VIAL IVP ONE (00:17)
[2016-08-07] MEDS: DILTIAZEM 30 MG TAB PO SCH ×3 (00:31→12:54)
[2016-08-07] MEDS ORDERED: NITROGLYCERIN/DEXTROSE 250 ML IV SCH (01:30)
[2016-08-07 01:32] LABS: TROPONIN I 0.022 ng/mL (0-0.034)
[2016-08-07 03:52] LABS: BASE EXCESS -1.3 mEq/L (-2.5-2.5); BICARBONATE 21 mEq/L (22-26); MEASURED OXYGEN SATURATION 98 % (92-95); PCO2 27 mmHg (34-38); PO2 107 mmHg (65-75); TCO2 22 mEq/L (23-27)
[2016-08-07 03:53] LABS: BIPAP YES
[2016-08-07 03:54] LABS: EXP PRESSURE 7; INSP PRESSURE 16; O2 CONCENTRATIION 100 % (0-100); P/F RATIO 107 RATIO
[2016-08-07 04:17] LABS: ABSOLUTE IMMATURE GRANULOCYTES 0.18 10^3/uL (0.00-0.10); ABSOLUTE NRBC COUNT 0.03 10^3/uL (0-0.01); ADD DIFF? NO; ADD MORPH? NO; ADD SCAN? YES; ATYPICAL LYMPHOCYTE FLAG 0 (0-99); FRAGMENT RBC FLAG 0 (0-99); HEMATOCRIT 26.1 % (40.0-51.0); HEMOGLOBIN 8.8 g/dL (13.7-17.5); LIPEMIA HEMOLYSIS FLAG 80 (0-99); MEAN CELL HEMOGLOBIN 33.5 pg (27.9-34.1); MEAN CELL HEMOGLOBIN CONCENTR. 33.7 g/dL (32.4-36.7); MEAN CELL VOLUME 99.2 fL (81.5-99.8); MEAN PLATELET VOLUME 11.7 fL (8.7-11.7); NRBC-AUTO% 0.2 % (0.0-0.2); PLATELET CLUMPS FLAG 10 (0-99); PLATELET COUNT 228 10^3/uL (150-400); RED BLOOD CELL COUNT 2.63 10^6/uL (4.40-6.38); RED CELL DISTRIBUTION WIDTH 15.9 % (11.5-15.2)
[2016-08-07 04:19] LABS: LEFT SHIFT FLG 300 (0-99)
[2016-08-07 04:24] LABS: ANION GAP 10 mEq/L (8-16); CALCIUM 8.5 mg/dL (8.5-10.4); CARBON DIOXIDE 21 mEq/l (22-31); CHLORIDE 109 mEq/L (97-110); CREATININE 0.8 mg/dL (0.7-1.3); GLOMERULAR FILTRATION RATE > 60; GLUCOSE 217 mg/dL (70-100); POTASSIUM 3.2 mEq/L (3.5-5.2); SODIUM 140 mEq/L (134-144)
[2016-08-07] MEDS ORDERED: POTASSIUM CL 20 MEQ TAB PO ONE (05:07)
--- NOTE | 2016-08-07 05:07 | HOSPPROG ---
Hospitalist Progress Note Assessment/Plan: XC note: Called by RN due to increased O2 requirements, up to 15 LPM face mask with sats in the 80's. He is tachypneic. No fevers. No cough. I note significant JVD though no LE edema. Rales are heard b/l lung victor R>L. BP and HR are stable. Afebrile. Lab data: BNP >1,000, Trop neg, PCT 0.52 (down from 0.58), lactate normal. PCT previously thought elevated secondary to abdominal surgery for necrotic bowel. Reviewed CT from earlier today. CXR shows new patchy multi-focal right sided infiltrates. Unclear if this represents asymmetric pulmonary edema vs new multi-focal PNA. He was initially given IV Lasix and started on bipap due to respiratory distress, marked JVD and suspicion for HF and he seemed to improve. PCT remains elevated and wbc's on the rise. This CXR appearance could represent an aspiration PNA, pt certainly at risk. Will dc bipap and use vapotherm if ongoing high O2 requirements. Start Ertapenem for possible aspiration PNA. Objective: Vital Signs Temp Pulse Resp BP Pulse Ox 37.4 C 103 H 39 H 122/50 H 96 08/07/16 01:05 08/07/16 02:22 08/07/16 02:22 08/07/16 02:22 08/07/16 02:22 Laboratory Results 08/07/16 02:40 08/05/16 08/06/16 08/07/16 05:59 05:59 05:59 Intake Total 2280 1358 Balance 2280 1358 PT 15.1 SEC (12.0-15.0) H 07/30/16 02:45 INR 1.19 (0.83-1.16) H 07/30/16 02:45 ICD10 Worksheet Patient Problems: Problems Problem Status Onset SBO (small bowel obstruction) Acute Acute chest pain Acute Aphasia Acute Dizziness Acute
[2016-08-07 05:31] LABS: SCAN NEGATIVE
[2016-08-07] MEDS: VANCOMYCIN 125 MG/2.5 ML UDL PO SCH (05:48)
[2016-08-07] MEDS: PETROLATUM WHITE LEFTEYE SCH ×4 (05:49→21:52)
[2016-08-07] MEDS: MINERAL OIL LEFTEYE SCH ×4 (05:49→21:52)
[2016-08-07] MEDS ORDERED: ERTAPENEM 1 GM in NS 100 ML IV SCH ×2 (06:01→09:00)
[2016-08-07 06:33] LABS: COLOR YELLOW; LEUKOCYTE ESTERASE,URINE NEGATIVE (NEGATIVE); NITRITE,URINE NEGATIVE (NEGATIVE)
[2016-08-07 06:55] LABS: MUCUS TRACE /lpf (NONE-1+)
[2016-08-07 06:56] LABS: RBC,URINE NONE SEEN /hpf (0-3)
--- NOTE | 2016-08-07 08:52 | SOAPPROG ---
SOAP Progress Note Assessment/Plan: Assessment/Plan: Mr. 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 Transferred to the ICU last night Still anemic likely acute on chronic blood loss anemia. Leucocytosis persists aspiration pneumonia likely with increased oxygen requirements overnight Afib started on CCB Converted to sinus with PVC's TF started Loose stool likely due to tube feeds C diff pending but has not had a bowel movement OOB in chair this morning Sinus rhythm echocardiogram normal Regular rate and rhythm Coarse bilaterally Abd soft NT, ND incision c/d/i No edema Good peripheral pulses Aspiration pneumonia with increased oxygen requirement overnight antibiotics to be started will discuss with Medicine Improving slowly post laparotomy for adhesive band causing ischemic bowel Monitor CBC Afib new onset converted chemically Free water/TF/meds via PEG OOB with PT Encourage IS 08/03/16 18:48 08/07/16 08:50 Objective: Vital Signs Temp Pulse Resp BP Pulse Ox 37.7 C 89 30 H 113/52 L 99 08/07/16 05:19 08/07/16 05:47 08/07/16 05:19 08/07/16 05:47 08/07/16 05:19 Laboratory Results 08/07/16 03:00 08/07/16 02:40 08/06/16 08/07/16 08/08/16 05:59 05:59 05:59 Intake Total 1358 653 Output Total 80 Balance 1358 573 PT 15.1 SEC (12.0-15.0) H 07/30/16 02:45 INR 1.19 (0.83-1.16) H 07/30/16 02:45 ICD10 Worksheet Patient Problems: Problems Problem Status Onset C. difficile diarrhea Acute ~08/06/16 SBO (small bowel obstruction) Acute Acute chest pain Acute Aphasia Acute Dizziness Acute
[2016-08-07] MEDS: CARBOXYMETHYLCELLULOSE 0.5% 0.4 ML DROPERETTE RTEYE SCH ×2 (09:23→21:51)
[2016-08-07] MEDS: FLUoxetine 20 MG CAP TUBE SCH (09:23)
[2016-08-07] MEDS: ENOXAPARIN 40 MG/0.4 ML SYR SC SCH (09:23)
[2016-08-07] MEDS: ASPIRIN 325 MG TAB PO SCH (09:24)
[2016-08-07] MEDS: MOXIFLOXACIN HCL RTEYE SCH ×2 (09:24→21:52)
[2016-08-07] MEDS: EZETIMIBE 10 MG TAB TUBE SCH (09:24)
[2016-08-07] MEDS: OXYBUTYNIN 5 MG EXT REL TAB PO SCH (09:51)
[2016-08-07] MEDS: MEROPENEM 1 GM in NS 100 ML IV SCH ×2 (10:09→18:09)
[2016-08-07 10:42] LABS: POTASSIUM 3.4 mEq/L (3.5-5.2)
[2016-08-07] MEDS: VANCOMYCIN 125 MG/2.5 ML UDL TUBE SCH ×3 (11:21→21:51)
[2016-08-07] MEDS: VANCOMYCIN HCL/NORMAL SALINE 250 ML IV SCH (11:21)
--- NOTE | 2016-08-07 12:04 | ECHO ---
[id number] + + [address] : : [place] [address] : : [phone] + + Adult Echocardiographic Report + ----+ :Name: RAYSHAWN SIMONS EStanitay Date: 08/07/2016 07:27 AM : : Hospital Admission Number: [id number] Location: 254: :: 1930 Gender: Male Height: 70 in : :Age: 85 yrs Race: WH Weight: 145 lb : :Reason For Study: Eval LV Fx : : BSA: 1.8 meters2 : :History: PNA, C-diff : + ----+ MMode/2D Measurements \T\ Calculations IVSd: 0.92 cm LVIDd: 4.7 cm FS: 41.7 % Ao root diam: 3.3 cm LVPWd: 1.1 cm LVIDs: 2.8 cm EDV(Teich): 103.7 ml ACS: 1.6 cm ESV(Teich): 28.5 ml EF(Teich): 72.6 % Normal Measurement Values: + + :LVIDd (3.5-5.7cm) IVSd (0.6-1.1cm) LVPWd (0.6-1.1cm) Aortic Root (2.0-3.7cm)Left Atrium (1.5-4.0cm): :LV Vol(d) (76-115ml) LV Vol(s) (29-48ml) Ejec Fraction (50-65%)PV Sandro (0.6- 1.2m/s) TV Sandro (0.4-1.0m/s) : :MV E Sandro (0.8-1.0m/s)MV A Sandro (0.3-1.0m/s)LVOT Sandro (0.7-1.2m/s) Asc Ao Sandro ( 0.9-1.8m/s) : + + Doppler Measurements \T\ Calculations MV E max sandro: Ao V2 max: AI max sandro: LV V1 max: 88.8 cm/sec 188.7 cm/sec 238.9 cm/sec 138.8 cm/sec MV A max sandro: Ao max PG: AI max P.8 mmHgLV V1 max P.2 cm/sec 14.2 mmHg AI dec slope: 7.7 mmHg MV E/A: 0.89 118.1 cm/sec2 AI P1/2t: 592.3 msec PA V2 max: PI end-d sandro: TR max sandro: 134.4 cm/sec 139.8 cm/sec 293.2 cm/sec PA max P.2 mmHg TR max P.4 mmHg RAP systole: 5.0 mmHg RVSP(TR): 39.4 mmHg Left Ventricle The left ventricle is normal in size. There is normal left ventricular wall thickness. The left ventricular ejection fraction is normal. The left ventricle is hyperdynamic. There is Doppler evidence for diastolic dysfunction. Ejection Fraction = 73%. Right Ventricle The right ventricle is normal in size and function. Atria The left atrium is mildly dilated. Right atrial size is normal. Mitral Valve The mitral valve is normal. There is no evidence of mitral valve prolapse. There is no mitral valve stenosis. There is trace mitral regurgitation. Tricuspid Valve There is mild tricuspid regurgitation. Right ventricular systolic pressure is 40mmHg. There is Doppler evidence for mild pulmonary hypertension. Aortic Valve There is mild aortic valve calcification. There is no aortic stenosis. Mild aortic regurgitation. Pulmonic Valve The pulmonic valve is normal in structure and function. trace to mild pulmonic valvular regurgitation. Great Vessels The aortic root is normal size. Pericardium/Pleural There is no pericardial effusion. Conclusion A complete two-dimensional transthoracic echocardiogram was performed (2D, M-mode, Doppler and color flow Doppler). The rhythm is NSR iwith ventricular ectopy. The left ventricular ejection fraction is normal. The left ventricle is hyperdynamic. There is Doppler evidence for diastolic dysfunction. Ejection Fraction = 73%. The right ventricle is normal in size and function. The left atrium is mildly dilated. The mitral valve is normal. There is trace mitral regurgitation. There is mild tricuspid regurgitation. Right ventricular systolic pressure is 40mmHg. There is mild aortic valve calcification. Mild aortic regurgitation. Trace to mild pulmonic valvular regurgitation. There is no pericardial effusion. No significant change compared to a prior study from 10/2011. Final Reading Physician: Janelle Diane signed on 08/07/2016 12:02 PM Ordering Physician: Ashley Edwards Performed By: Benedicto Jeffery, CS
[2016-08-07] MEDS ORDERED: ORAL BALANCE GEL TUBE PO PRN (12:11)
[2016-08-07] MEDS: (Difluprednate [Durezol] 1 DROP) RTEYE SCH (12:53)
--- NOTE | 2016-08-07 14:29 | HOSPPROG ---
Hospitalist Progress Note Assessment/Plan: * Acute respiratory failure -unstable and transferred to ICU for BIPAP -now better - rapid improvement - ? 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 transferred to ICU on BIPAP. On BIPAP therapy for most of morning, stabilizing on mask O2 this afternoon Objective: Vital Signs Temp Pulse Resp BP Pulse Ox 36.9 C 81 18 133/49 H 94 08/07/16 09:19 08/07/16 12:54 08/07/16 09:19 08/07/16 12:54 08/07/16 09:19 Microbiology 08/06/16 11:10 - Final Sputum, Induced/Suctioned Laboratory Results 08/07/16 03:00 08/07/16 10:00 08/06/16 08/07/16 08/08/16 05:59 05:59 05:59 Intake Total 1358 653 Output Total 80 Balance 1358 573 PT 15.1 SEC (12.0-15.0) H 07/30/16 02:45 INR 1.19 (0.83-1.16) H 07/30/16 02:45 Case d/w Dr. suárez and Dr. Jordan katz abx for hospital acquired pneumonia CXR viewed, my personal interpretation is - right sided infiltrate - Physical Exam Constitutional: no apparent distress, appears nourished, not in pain Cardiovascular: regular rate and rhythym, no murmur, rub, or gallop Respiratory: reduced air movement, inspiratory crackles, respiratory distress, No clear to auscultation, No rhonchi Gastrointestinal: normoactive bowel sounds, soft, non-tender abdomen, no palpable masses Skin: no rashes or abrasions, no fluctuance, no induration Psychiatric: not anxious, encephalopathic, flat affect, poor insight, poor judgement, poor memory ICD10 Worksheet Patient Problems: Problems Problem Status Onset C. difficile diarrhea Acute ~08/06/16 SBO (small bowel obstruction) Acute Acute chest pain Acute Aphasia Acute Dizziness Acute
[2016-08-07] MEDS ORDERED: POTASSIUM CL 10 MEQ TAB PO ONE ×2 (14:58→21:33)
[2016-08-07] MEDS ORDERED: ALPRAZolam 0.5 MG TAB TUBE PRN (15:03)
[2016-08-07] MEDS ORDERED: guaiFENesin 200 MG/10 ML UDL TUBE PRN (15:05)
[2016-08-07] MEDS ORDERED: POTASSIUM CL 20 MEQ/15 ML UDCUP TUBE ONE ×2 (15:15→21:45)
--- NOTE | 2016-08-07 16:37 | GCON ---
[f rep st] CONSULTATION PULMONARY CRITICAL CARE CONSULTATION DATE OF CONSULTATION: 08/07/2016 REASON FOR CONSULTATION: Pneumonia, hypoxemia. HISTORY: The patient is an 85-year-old with multiple medical problems. He had a small bowel obstru ction due to adhesions with an associated ischemic small bowel segment. He underwent exploratory la parotomy on 07/30/2016 with partial small bowel resection. He was doing well postoperatively. Maxwell melissa last night, developed more hypoxemia. He had increased bilateral infiltrates, right greater yuliet n left, on chest x-ray and CT scan of the chest. There was no evidence of thromboembolic disease. He was moved to the intensive care unit for more aggressive pulmonary care. He is do not resuscitat e. He has dysphagia and has a chronic PEG tube in place. These issues are secondary to previous st roke. He is on tube feedings. Other medical problems include C difficile colitis, systemic hypertension, and atrial fibrillation. PAST MEDICAL HISTORY: As mentioned above. In addition, he has a history of hyperlipidemia. MEDICATIONS: At home, include aspirin, amlodipine, Flomax, Ditropan, Prozac, Zetia and eyedrops. PAST SURGICAL HISTORY: Tonsillectomy and hip replacement on the right. SOCIAL HISTORY: The patient is with a supportive . He smoked cigarettes relatively min imally in the distant past. Alcohol is denied. FAMILY HISTORY: Noncontributory. Unobtainable from the patient. REVIEW OF SYSTEMS: Unobtainable from the patient. There is no history of heart disease. His denies lung disease or lung problems. PHYSICAL EXAMINATION: GENERAL: Reveals a very thin, somewhat cachectic, elderly gentleman who is u p in a chair. He is experiencing no distress. He is not tachypneic. VITAL SIGNS: Respiratory rat e is 18. He is on nasal cannula oxygen at 4 L currently with saturations of 94%. He is afebrile. NECK: Unremarkable for lymphadenopathy or thyromegaly. There is no obvious jugular venous distenti on. HEENT: Mucous membranes are dry. Nasal cannula is in place. CHEST: Reveals decreased breath sounds bilaterally. He is clear anteriorly. There are a few rales at the posterior lateral bases. There is minimal central congestion with cough. No kailash rhonchi. At this point in time, no stri dominga. HEART: Regular in rate and rhythm with sinus on the monitor. Some PVCs are present. There i s a systolic murmur. No obvious gallop. ABDOMEN: Has a feeding tube in place. Recent surgical sc ar appears clean and dry. ABDOMEN: Soft. Bowel sounds are present. There is no tenderness. GREGG TOURINARY: No Owusu catheter is in place. Urinary output is difficult to assess. EXTREMITIES: Un remarkable for significant edema, cords or tenderness. NEUROLOGIC: Remarkable for some lethargy. H e is arousable and responsive. He moves all extremities relatively equally. Detailed neurologic ex am was not performed. Sensation appeared to be intact grossly. He appears to be oriented to person and the hospital. IMAGING: Chest x-ray shows infiltrates on the right and in the retrocardiac area. CT scan of the c hest done yesterday was negative for thromboembolic disease. Some patchy bilateral infiltrates, rig ht greater than left, are present. Some small bilateral pleural effusions were evident. LABORATORY: Arterial blood gas early this morning showed a pH of 7.51, pCO2 of 27, and a PO2 of 107 on 100% BiPAP. Lactate was 1.8. White blood cell count is 18,000, hematocrit 26, platelets are no rmal. Sodium is 140, potassium 4.2, CO2 of 21, BUN 34 with a creatinine of 0.8, glucose is 217. Ca lcium and phosphorus are within normal limits. Troponin is negative, BNP mildly elevated at 1090. Procalcitonin is. 2.52 indicating an increased likelihood of bacterial infection or sepsis. C diffi cile toxin was positive on 08/06/2016. Multiple blood cultures are negative or pending. Sputum cul ture is pending, but likely is oral contaminated. ASSESSMENT: 1. Pneumonia, probably secondary to aspiration. This is associated with increased hypoxemia and re spiratory difficulties, now improving with bronchopulmonary care in the intensive care unit, suction ing of mucus from high in the trachea or in the posterior oropharynx and with antibiotics (meropenem and vancomycin). Possible component of volume overload. He has received Lasix. He appears clinic ally euvolemic to dry. However, he does have some small bilateral pleural effusions. Cardiac echo shows a normal left ventricular ejection fraction and mild pulmonary hypertension. 2. Status post small-bowel obstruction with laparotomy and resection. He appears to be doing well postoperatively. 3. History of multiple medical problems, as outlined above. 4. Clostridium difficile infection. He is on isolation along with oral vancomycin. 5. Anemia. Hematocrit is stable at 26. 6. Metabolic: Hypokalemia, on replacement, mild hyperglycemia. 7. Do not resuscitate, per advanced directives. PLAN: The patient will be kept in the intensive care unit. Antibiotics will be continued. Broncho dilator therapy will be added to his regimen. Bronchopulmonary therapies will be maintained with de ep suctioning as needed. His usual medications will be continued. Laboratory will be followed. [facility] x-ray will be followed. Further plans and recommendations will be made based on his progress over the next 12-24 hours. /[id number]/MODL
[2016-08-07] MEDS: DILTIAZEM 30 MG TAB TUBE SCH (18:10)
[2016-08-07 21:22] LABS: POTASSIUM 3.6 mEq/L (3.5-5.2)
[2016-08-07] MEDS: TERAZOSIN HCL 1 MG CAP TUBE SCH (21:50)
[2016-08-07] MEDS: OXYBUTYNIN CHLORIDE 5 MG TAB TUBE SCH (21:50)
[2016-08-08] MEDS: DILTIAZEM 30 MG TAB TUBE SCH ×4 (00:41→18:47)
[2016-08-08] MEDS: MEROPENEM 1 GM in NS 100 ML IV SCH ×3 (02:30→18:43)
[2016-08-08 06:06] LABS: % IMMATURE GRANULYOCYTES 1.2 % (0.0-1.1); ABSOLUTE IMMATURE GRANULOCYTES 0.24 10^3/uL (0.00-0.10); ABSOLUTE NRBC COUNT 0.02 10^3/uL (0-0.01); ADD DIFF? NO; ADD MORPH? NO; ADD SCAN? YES; ATYPICAL LYMPHOCYTE FLAG 0 (0-99); FRAGMENT RBC FLAG 0 (0-99); HEMATOCRIT 22.4 % (40.0-51.0); HEMOGLOBIN 7.6 g/dL (13.7-17.5); LIPEMIA HEMOLYSIS FLAG 90 (0-99); MEAN CELL HEMOGLOBIN 34.1 pg (27.9-34.1); MEAN CELL HEMOGLOBIN CONCENTR. 33.9 g/dL (32.4-36.7); MEAN CELL VOLUME 100.4 fL (81.5-99.8); MEAN PLATELET VOLUME 11.1 fL (8.7-11.7); NRBC-AUTO% 0.1 % (0.0-0.2); PLATELET CLUMPS FLAG 0 (0-99); PLATELET COUNT 213 10^3/uL (150-400); RED BLOOD CELL COUNT 2.23 10^6/uL (4.40-6.38); RED CELL DISTRIBUTION WIDTH 16.3 % (11.5-15.2)
[2016-08-08 06:07] LABS: LEFT SHIFT FLG 120 (0-99)
[2016-08-08] MEDS: VANCOMYCIN 125 MG/2.5 ML UDL TUBE SCH ×4 (06:10→21:40)
[2016-08-08] MEDS: MINERAL OIL LEFTEYE SCH ×4 (06:11→21:27)
[2016-08-08] MEDS: PETROLATUM WHITE LEFTEYE SCH ×4 (06:11→21:27)
[2016-08-08 06:19] LABS: ANION GAP 7 mEq/L (8-16); CALCIUM 8.6 mg/dL (8.5-10.4); CARBON DIOXIDE 25 mEq/l (22-31); CHLORIDE 111 mEq/L (97-110); CREATININE 0.7 mg/dL (0.7-1.3); GLOMERULAR FILTRATION RATE > 60; GLUCOSE 134 mg/dL (70-100); MAGNESIUM 1.8 mg/dL (1.6-2.3); POTASSIUM 3.8 mEq/L (3.5-5.2); SODIUM 143 mEq/L (134-144)
[2016-08-08 06:24] LABS: SCAN NEGATIVE
[2016-08-08] MEDS ORDERED: POTASSIUM CL 10 MEQ TAB PO ONE (08:03)
[2016-08-08] MEDS: FLUoxetine 20 MG CAP TUBE SCH (09:02)
[2016-08-08] MEDS: EZETIMIBE 10 MG TAB TUBE SCH (09:02)
[2016-08-08] MEDS: OXYBUTYNIN CHLORIDE 5 MG TAB TUBE SCH ×2 (09:02→21:30)
[2016-08-08] MEDS: ASPIRIN 325 MG TAB TUBE SCH (09:02)
[2016-08-08] MEDS: MOXIFLOXACIN HCL RTEYE SCH ×2 (09:03→21:26)
[2016-08-08] MEDS: ENOXAPARIN 40 MG/0.4 ML SYR SC SCH (09:03)
[2016-08-08] MEDS: CARBOXYMETHYLCELLULOSE 0.5% 0.4 ML DROPERETTE RTEYE SCH ×2 (09:03→23:58)
[2016-08-08] MEDS: (Difluprednate [Durezol] 1 DROP) RTEYE SCH (11:01)
[2016-08-08] MEDS: VANCOMYCIN HCL/NORMAL SALINE 250 ML IV SCH (11:01)
--- NOTE | 2016-08-08 12:35 | PDINTPN ---
Rotary Saw Operator Progress Note Assessment/Plan: Assessment: 85-year-old gentleman with underlying dementia and multiple medical problems including previous stroke, peg, etc. Admitted 07/30 with a small-bowel obstruction. Status post laparotomy with partial small bowel resection. Transferred to the intensive care unit as a stat call on 08/06 secondary to increased oxygen requirements associated with new pulmonary infiltrates and some upper airway mucus plugging. Pneumonia, presumably aspiration and nosocomial acquired. Oxygenation improved. On 4-5 L. No significant secretions currently. Chest x-ray slightly worse today/evolving. On meropenem and vancomycin. Status post laparotomy/small-bowel resection for SBO. Doing well. Chronic peg tube in place. Getting tube feedings at goal. C diff. On oral vancomycin. Dementia: Oriented times 2, cooperative, ambulates with a walker with assistance. Acute blood-loss anemia: Hematocrit 22 today, slightly lower. No evidence of active bleeding. Will follow. Metabolic: No issues identified. DVT prophylaxis: On enoxaparin GI prophylaxis: None indicated, getting gastric feedings. Nutrition: On tube feedings, at goal. Disposition: [facility] has already been arranged. Plan: Continue care in the intensive care unit today. Continue IV antibiotics. Continue bronchopulmonary therapies. Increase ambulation as tolerated. Continue other medications as noted above or on the MAR. Follow laboratory, chest x-ray. 35 minutes of critical care time spent directly with the patient. Discussed with the patient's , nursing, hospitalist, and the ICU multi disciplinary team. Objective: Vital Signs Temp Pulse Resp BP Pulse Ox 36.4 C 72 23 H 137/46 H 92 08/08/16 08:00 08/08/16 11:01 08/08/16 08:00 08/08/16 11:01 08/08/16 08:00 Microbiology 08/06/16 11:10 - Final Sputum, Induced/Suctioned Laboratory Results 08/08/16 05:55 08/08/16 05:55 08/07/16 08/08/16 08/09/16 05:59 05:59 05:59 Intake Total 653 2935 Output Total 80 300 100 Balance 573 2635 -100 PT 15.1 SEC (12.0-15.0) H 07/30/16 02:45 INR 1.19 (0.83-1.16) H 07/30/16 02:45 ICD10 Worksheet Patient Problems: Problems Problem Status Onset C. difficile diarrhea Acute ~08/06/16 Acute chest pain Acute Dizziness Acute Aphasia Acute SBO (small bowel obstruction) Acute
--- NOTE | 2016-08-08 14:04 | HOSPPROG ---
Hospitalist Progress Note Assessment/Plan: * Acute respiratory failure -improved, now down to 4L * Pneumonia - aspiration vs hospital acquired -IV Vanco, IV meropenem -monitor cultures x 48 hours - de-escalate abx if negative * SBO due to adhesive band with ischemic bowel - s/p SB resection * Dysphagia with chronic PEG - history of stroke -tube feeds * Afib with RVR -PO diltiazem -ASA (h/o subdural) * Metabolic encephalopathy -slow improvement * HTN -now on diltiazem instead of amlodipine * Trigeminal neuralgia with chronic facial droop * C diff - PO Vanco * Anemia - no evidence for bleeding - follow Subjective: confusion persists, otherwise doing okay Objective: Vital Signs Temp Pulse Resp BP Pulse Ox 36.4 C 72 23 H 137/46 H 92 08/08/16 08:00 08/08/16 11:01 08/08/16 08:00 08/08/16 11:01 08/08/16 08:00 Microbiology 08/06/16 11:10 - Final Sputum, Induced/Suctioned Laboratory Results 08/08/16 05:55 08/08/16 05:55 08/07/16 08/08/16 08/09/16 05:59 05:59 05:59 Intake Total 653 2935 Output Total 80 300 100 Balance 573 2635 -100 PT 15.1 SEC (12.0-15.0) H 07/30/16 02:45 INR 1.19 (0.83-1.16) H 07/30/16 02:45 CXR viewed, my personal interpretation is - evolving PNA tele reviewed - NSR - Physical Exam Constitutional: no apparent distress, appears nourished, not in pain Cardiovascular: regular rate and rhythym, no murmur, rub, or gallop Respiratory: no respiratory distress, no rales or rhonchi, clear to auscultation Gastrointestinal: normoactive bowel sounds, soft, non-tender abdomen, no palpable masses Skin: no rashes or abrasions, no fluctuance, no induration Neurologic: No AAOx3 Psychiatric: encephalopathic, flat affect, poor insight, poor judgement, poor memory, No thought process linear, No anxious ICD10 Worksheet Patient Problems: Problems Problem Status Onset C. difficile diarrhea Acute ~08/06/16 SBO (small bowel obstruction) Acute Acute chest pain Acute Aphasia Acute Dizziness Acute
--- NOTE | 2016-08-08 17:09 | SOAPPROG ---
SOAP Progress Note Assessment/Plan: Assessment/Plan: Mr. 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 Transferred to the ICU for respiratory failure. After mucous plugs expectorated now down to 4L NC Still anemic likely acute on chronic blood loss anemia. Leucocytosis persists aspiration pneumonia likely with increased oxygen requirements overnight C diff + 08/06 serology on po vanco Afib started on CCB Converted to sinus with PVC's TF started OOB in chair this morning Regular rate and rhythm Coarse bilaterally Abd soft NT, ND incision c/d/i No edema Good peripheral pulses Aspiration pneumonia with increased oxygen requirement overnight antibiotics pending cx C diff positive Improving slowly post laparotomy for adhesive band causing ischemic bowel Monitor CBC Afib new onset converted chemically Free water/TF/meds via PEG OOB with PT Encourage IS 08/03/16 18:48 08/07/16 08:50 08/08/16 17:07 Objective: Vital Signs Temp Pulse Resp BP Pulse Ox 36.7 C 78 24 H 134/47 H 96 08/08/16 16:00 08/08/16 16:00 08/08/16 16:00 08/08/16 16:00 08/08/16 16:00 Microbiology 08/06/16 11:10 - Final Sputum, Induced/Suctioned Laboratory Results 08/08/16 05:55 08/08/16 05:55 08/07/16 08/08/16 08/09/16 05:59 05:59 05:59 Intake Total 653 2935 Output Total 80 300 100 Balance 573 2635 -100 PT 15.1 SEC (12.0-15.0) H 07/30/16 02:45 INR 1.19 (0.83-1.16) H 07/30/16 02:45 ICD10 Worksheet Patient Problems: Problems Problem Status Onset C. difficile diarrhea Acute ~08/06/16 SBO (small bowel obstruction) Acute Acute chest pain Acute Aphasia Acute Dizziness Acute
[2016-08-08] MEDS: TERAZOSIN HCL 1 MG CAP TUBE SCH (21:59)
[2016-08-09] MEDS: DILTIAZEM 30 MG TAB TUBE SCH ×4 (01:26→17:52)
[2016-08-09] MEDS: MEROPENEM 1 GM in NS 100 ML IV SCH ×3 (03:18→17:47)
[2016-08-09 05:18] LABS: ABSOLUTE NRBC COUNT 0.02 10^3/uL (0-0.01); ADD DIFF? YES; ADD MORPH? NO; ADD SCAN? NO; ATYPICAL LYMPHOCYTE FLAG 0 (0-99); FRAGMENT RBC FLAG 0 (0-99); HEMATOCRIT 21.3 % (40.0-51.0); LEFT SHIFT FLG 60 (0-99); LIPEMIA HEMOLYSIS FLAG 80 (0-99); MEAN CELL HEMOGLOBIN 33.5 pg (27.9-34.1); MEAN CELL HEMOGLOBIN CONCENTR. 32.9 g/dL (32.4-36.7); MEAN CELL VOLUME 101.9 fL (81.5-99.8); MEAN PLATELET VOLUME 11.3 fL (8.7-11.7); NRBC-AUTO% 0.1 % (0.0-0.2); PLATELET CLUMPS FLAG 0 (0-99); PLATELET COUNT 234 10^3/uL (150-400); RED BLOOD CELL COUNT 2.09 10^6/uL (4.40-6.38); RED CELL DISTRIBUTION WIDTH 16.4 % (11.5-15.2)
[2016-08-09 05:27] LABS: ANION GAP 6 mEq/L (8-16); CALCIUM 8.6 mg/dL (8.5-10.4); CARBON DIOXIDE 23 mEq/l (22-31); CHLORIDE 114 mEq/L (97-110); CREATININE 0.6 mg/dL (0.7-1.3); GLOMERULAR FILTRATION RATE > 60; GLUCOSE 137 mg/dL (70-100); POTASSIUM 3.9 mEq/L (3.5-5.2); SODIUM 143 mEq/L (134-144)
[2016-08-09 05:43] LABS: MACROCYTES 1+; PLATELET ESTIMATE ADEQUATE (ADEQ); POLYCHROMASIA 1+
[2016-08-09] MEDS: VANCOMYCIN 125 MG/2.5 ML UDL TUBE SCH ×3 (05:43→16:33)
[2016-08-09] MEDS: MINERAL OIL LEFTEYE SCH ×4 (05:52→20:43)
[2016-08-09] MEDS: PETROLATUM WHITE LEFTEYE SCH ×4 (05:52→20:43)
[2016-08-09] MEDS ORDERED: POTASSIUM CL 10 MEQ TAB PO ONE (09:35)
[2016-08-09] MEDS ORDERED: POTASSIUM CL 20 MEQ/15 ML UDCUP PO ONE (09:45)
[2016-08-09] MEDS: ENOXAPARIN 40 MG/0.4 ML SYR SC SCH (10:17)
[2016-08-09] MEDS: ASPIRIN 325 MG TAB TUBE SCH (10:17)
[2016-08-09] MEDS: FLUoxetine 20 MG CAP TUBE SCH (10:17)
[2016-08-09] MEDS: OXYBUTYNIN CHLORIDE 5 MG TAB TUBE SCH (10:17)
[2016-08-09] MEDS: MOXIFLOXACIN HCL RTEYE SCH (10:20)
[2016-08-09] MEDS: (Difluprednate [Durezol] 1 DROP) RTEYE SCH (11:10)
[2016-08-09] MEDS: VANCOMYCIN HCL/NORMAL SALINE 250 ML IV SCH (11:17)
[2016-08-09] MEDS: EZETIMIBE 10 MG TAB TUBE SCH (12:00)
[2016-08-09] MEDS: CARBOXYMETHYLCELLULOSE 0.5% 0.4 ML DROPERETTE RTEYE SCH (12:01)
--- NOTE | 2016-08-09 16:42 | HOSPPROG ---
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 - s/p SB resection * Dysphagia with chronic PEG - history of stroke -tube feeds * Afib with RVR -PO diltiazem -ASA (h/o subdural) * Metabolic encephalopathy -slow improvement * HTN -now on diltiazem instead of amlodipine * Trigeminal neuralgia with chronic facial droop * C diff - PO Vanco * Anemia - no evidence for bleeding - follow Prognosis tenuous - palliative care consulted High risk Subjective: Still confused, desat overnight, now wean back to 4L today Objective: Vital Signs Temp Pulse Resp BP Pulse Ox 36.4 C 81 18 146/59 H 91 L 08/09/16 15:40 08/09/16 15:40 08/09/16 15:40 08/09/16 15:40 08/09/16 15:40 Microbiology 08/06/16 11:10 - Final Sputum, Induced/Suctioned Sputum Culture - Final Laboratory Results 08/09/16 05:09 08/09/16 05:09 08/08/16 08/09/16 08/10/16 05:59 05:59 05:59 Intake Total 2935 Output Total 300 100 50 Balance 2635 -100 -50 PT 15.1 SEC (12.0-15.0) H 07/30/16 02:45 INR 1.19 (0.83-1.16) H 07/30/16 02:45 CXR viewed, my personal interpretation is - increasing infiltrates - Physical Exam Constitutional: no apparent distress, appears nourished, not in pain Cardiovascular: regular rate and rhythym, no murmur, rub, or gallop Respiratory: no respiratory distress, no rales or rhonchi, clear to auscultation Gastrointestinal: normoactive bowel sounds, soft, non-tender abdomen, no palpable masses Skin: no rashes or abrasions, no fluctuance, no induration Neurologic: No AAOx3 Psychiatric: encephalopathic, flat affect, poor insight, poor judgement, poor memory, No interacting appropriately, No agitated ICD10 Worksheet Patient Problems: Problems Problem Status Onset C. difficile diarrhea Acute ~08/06/16 SBO (small bowel obstruction) Acute Acute chest pain Acute Aphasia Acute Dizziness Acute
[2016-08-09 18:18] LABS: POTASSIUM 4.5 mEq/L (3.5-5.2)
--- NOTE | 2016-08-09 21:25 | SOAPPROG ---
SOAP Progress Note Assessment/Plan: Assessment/Plan: Mr. Mcmanus is an 85-year-old gentleman POD#9 s/p small-bowel resection for mesenteric ischemia secondary to adhesive band. Transferred to the ICU for respiratory failure. After mucous plugs expectorated now down to 4L NC Still anemic likely acute on chronic blood loss anemia. Leucocytosis persists aspiration pneumonia/c diff related Afib started on CCB Converted to sinus with PVC's TF started OOB in chair this morning Regular rate and rhythm Coarse bilaterally Abd soft NT, ND incision c/d/i No edema Good peripheral pulses Aspiration pneumonia with increased oxygen requirement overnight antibiotics pending cx C diff positive Improving slowly post laparotomy for adhesive band causing ischemic bowel Monitor CBC Afib new onset converted chemically Free water/TF/meds via PEG OOB with PT Encourage IS Palliative care discussed with son >30 min this morning and he is agreement at this time. Further discussion with spouse tomorrow. 08/03/16 18:48 08/07/16 08:50 08/08/16 17:07 08/09/16 21:23 Objective: Vital Signs Temp Pulse Resp BP Pulse Ox 36.4 C 81 18 146/59 H 91 L 08/09/16 15:40 08/09/16 15:40 08/09/16 15:40 08/09/16 15:40 08/09/16 15:40 Microbiology 08/06/16 11:10 - Final Sputum, Induced/Suctioned Sputum Culture - Final Laboratory Results 08/09/16 05:09 08/09/16 17:31 08/08/16 08/09/16 08/10/16 05:59 05:59 05:59 Intake Total 2935 350 Output Total 300 100 380 Balance 2635 -100 -30 PT 15.1 SEC (12.0-15.0) H 07/30/16 02:45 INR 1.19 (0.83-1.16) H 07/30/16 02:45 ICD10 Worksheet Patient Problems: Problems Problem Status Onset C. difficile diarrhea Acute ~08/06/16 SBO (small bowel obstruction) Acute Acute chest pain Acute Aphasia Acute Dizziness Acute
[2016-08-09 22:47] LABS: HEMATOCRIT 17.1 % (40.0-51.0); MEAN CELL HEMOGLOBIN 34.3 pg (27.9-34.1); MEAN CELL HEMOGLOBIN CONCENTR. 33.3 g/dL (32.4-36.7); RED BLOOD CELL COUNT 1.66 10^6/uL (4.40-6.38); RED CELL DISTRIBUTION WIDTH 16.4 % (11.5-15.2)
[2016-08-09 22:50] LABS: HEMOGLOBIN 5.7 g/dL (13.7-17.5)
[2016-08-09] MEDS: PANTOPRAZOLE SODIUM 40 MG in NS 100 ML IV SCH (23:12)
[2016-08-09 23:40] LABS: APTT 32.4 SEC (23.0-38.0); INR 1.31 (0.83-1.16); PROTIME(PATIENT) 16.3 SEC (12.0-15.0)
[2016-08-10] MEDS: CARBOXYMETHYLCELLULOSE 0.5% 0.4 ML DROPERETTE RTEYE SCH ×3 (01:43→20:07)
[2016-08-10] MEDS: TERAZOSIN HCL 1 MG CAP TUBE SCH ×2 (01:44→05:06)
[2016-08-10] MEDS: OXYBUTYNIN CHLORIDE 5 MG TAB TUBE SCH ×4 (01:44→20:08)
[2016-08-10] MEDS: VANCOMYCIN 125 MG/2.5 ML UDL TUBE SCH ×5 (01:44→21:38)
[2016-08-10] MEDS: DILTIAZEM 30 MG TAB TUBE SCH ×4 (01:44→18:13)
[2016-08-10] MEDS: MEROPENEM 1 GM in NS 100 ML IV SCH ×3 (02:21→18:10)
[2016-08-10 05:17] LABS: ABSOLUTE NRBC COUNT 0.05 10^3/uL (0-0.01); ADD DIFF? YES; ADD MORPH? YES; ATYPICAL LYMPHOCYTE FLAG 0 (0-99); FRAGMENT RBC FLAG 0 (0-99); HEMATOCRIT 20.3 % (40.0-51.0); LEFT SHIFT FLG 50 (0-99); LIPEMIA HEMOLYSIS FLAG 80 (0-99); MEAN CELL HEMOGLOBIN CONCENTR. 33.5 g/dL (32.4-36.7); MEAN CELL VOLUME 98.5 fL (81.5-99.8); MEAN PLATELET VOLUME 11.1 fL (8.7-11.7); NRBC-AUTO% 0.2 % (0.0-0.2); PLATELET CLUMPS FLAG 0 (0-99); PLATELET COUNT 246 10^3/uL (150-400); RED BLOOD CELL COUNT 2.06 10^6/uL (4.40-6.38); RED CELL DISTRIBUTION WIDTH 17.6 % (11.5-15.2)
[2016-08-10 05:29] LABS: ADD SCAN? NO; HEMOGLOBIN 6.8 g/dL (13.7-17.5)
[2016-08-10 05:32] LABS: ANION GAP 7 mEq/L (8-16); CALCIUM 8.6 mg/dL (8.5-10.4); CARBON DIOXIDE 24 mEq/l (22-31); CHLORIDE 116 mEq/L (97-110); CREATININE 0.6 mg/dL (0.7-1.3); GLOMERULAR FILTRATION RATE > 60; GLUCOSE 132 mg/dL (70-100); POTASSIUM 3.8 mEq/L (3.5-5.2); SODIUM 147 mEq/L (134-144)
[2016-08-10 06:15] LABS: ACANTHOCYTES 1+; POLYCHROMASIA 1+
[2016-08-10 06:16] LABS: PLATELET ESTIMATE ADEQUATE (ADEQ)
[2016-08-10] MEDS: POTASSIUM Cl (KCl) 100 ML IV SCH ×4 (08:30→22:57)
[2016-08-10] MEDS: MINERAL OIL LEFTEYE SCH ×4 (08:34→20:07)
[2016-08-10] MEDS: PETROLATUM WHITE LEFTEYE SCH ×4 (08:34→20:07)
[2016-08-10] MEDS: EZETIMIBE 10 MG TAB TUBE SCH (08:34)
[2016-08-10] MEDS: FLUoxetine 20 MG CAP TUBE SCH (08:34)
[2016-08-10] MEDS: MOXIFLOXACIN HCL RTEYE SCH (09:00)
[2016-08-10 10:08] LABS: HEMATOCRIT 24.6 % (40.0-51.0); HEMOGLOBIN 8.3 g/dL (13.7-17.5)
--- NOTE | 2016-08-10 10:13 | HOSPPROG ---
Hospitalist Progress Note Assessment/Plan: # acute UGIB - blood per PEG - discussed with - she would like to defer endoscopic eval at this time which I think is appropriate - cont protonix IV bid empirically - tube feeds ongoing - consider holding if continues to drop hgb - hold asa and lovenox ppx # ABLA s/p transfusion overnight - trend H/H today - seems less likely d/t anastomses given that blood was per PEG # SBO d/t adhesive band with infarcted bowel s/p resection # pneumonia, hospital acquired - vanc IV and merrem iv # acute hypoxic resp failure - high O2 requirements # acute encephalopathy - multifactorial; requires a sitter today # a-fib with RVR - now NSR - cont dilt PO for now - holding asa given UGIB requiring transfusion # CVA - dysphagia/aspiration - had PEG for liquids, previously ate food # chronic SDH # trigeminal neuralgia with facila droop # c. dif # htn - dilt (amlodipine as outpatient) # DNR - unclear prognosis; discussed with ; palliative case c/s today Subjective: blood from PEG overnight; required transfusion; long discussion with regarding prognosis Objective: Vital Signs Temp Pulse Resp BP Pulse Ox 36.7 C 77 18 163/51 H 90 L 08/10/16 09:02 08/10/16 09:02 08/10/16 09:02 08/10/16 09:02 08/10/16 09:02 Microbiology 08/06/16 11:10 - Final Sputum, Induced/Suctioned Sputum Culture - Final Laboratory Results 08/10/16 05:10 08/10/16 05:10 08/09/16 08/10/16 08/11/16 05:59 05:59 05:59 Intake Total 350 Output Total 100 840 Balance -100 -490 PT 16.3 SEC (12.0-15.0) H 08/09/16 23:20 INR 1.31 (0.83-1.16) H 08/09/16 23:20 - Time Spent With Patient Time Spent with Patient: greater than 35 minutes Time Spent with Patient: Greater than 35 minutes spent on this patients care, greater than 50% of time spent counseling, educating, and coordinating care regarding the above mentioned plan. - Physical Exam Constitutional: chronically ill appearing Gastrointestinal: other (soft, mild distension, PEG in pace, surgical incision clean wihout erythema/purulence) ICD10 Worksheet Patient Problems: Problems Problem Status Onset C. difficile diarrhea Acute ~08/06/16 Acute chest pain Acute Dizziness Acute Aphasia Acute SBO (small bowel obstruction) Acute
[2016-08-10] MEDS: PANTOPRAZOLE SODIUM 40 MG in NS 100 ML IV SCH ×2 (10:55→20:09)
[2016-08-10] MEDS: ASPIRIN 325 MG TAB TUBE SCH (10:59)
[2016-08-10] MEDS: ENOXAPARIN 40 MG/0.4 ML SYR SC SCH (11:00)
[2016-08-10] MEDS: VANCOMYCIN 1.25 GM in D5W 250 ML IV SCH (11:51)
[2016-08-10] MEDS: VANCOMYCIN HCL/NORMAL SALINE 250 ML IV SCH (11:53)
--- NOTE | 2016-08-10 12:11 | PDPCPN ---
Palliative Care Progress Note Assessment/Plan: Referring provider: Dr Devi Reason for consult: Complex medical decision making Symptom control HPI: Cleve Mcmanus is a 85 yo male with PMH CVA with dysphagia s/p PEG tube admitted to the hospital for abdominal pain and nausea/vomiting. Found to have possible SBO s/p ex lap with partial small bowel resection due to ischemic bowel. Hospitalization complicated by acute respiatory failure from aspiration PNA on last day of IV antibiotics, c diff infection, and now GI bleed. Overall with poor prognosis and waxing /waning mental status. Continues to be very weak and confused. Palliative care consulted for complex medical decision making. Met with sybil Sanders at the bedside this morning. She stated today was the first time she heard that Cleve is not improving and may not ever improve. She felt that he was going to improve and didn't realize how sick he is. we talked about his goals which were never to be in a "vegetative state". She states they had a good quality of life before the hospitalization only needing help with his fluids due to previous stroke. We talked about options including comfort care. she feels Cleve's sons also need to be present to help with this decision. Spoke with son Montana over the phone this afternoon. He is very aware of the poor prognosis and medical status. He states his father would not want to just be kept alive. he supports the decision for comfort care only. He is most worried about Sybil Sanders and supporting her with whatever decision she makes. He is arriving in town on saturday. Assessment: Physical: - Pain: appears comfortable -tylenol PRN - Dyspnea: - PEG tube - speech follow - C diff - would continue oral vancomycin for comfort Emotional/psychological: acute encephalopathy: on prozac scheduled - maintain normal routines with low stimulation Advanced Care Planning: Is patient decisional?: no Code Status:DNR/DNI POA: Sybil is MDPOA. Plan: aware of very poor prognosis. She wants Cleve's 2 sons to have input into any decisions regarding comfort care. 1 son is arriving on Saturday and the other local one left today for vacation. Sybil will call Will today to update him. PC will check in with family on Saturday. 08/13/16 14:45 Subjective: unable to state Objective: Social History: to Sybil for 16 years. Second marriage for both. Cleve has 2 sons, 1 local and 1 arriving from [place] on Saturday. 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 Enjoys socializing at as well as traveling around the world. Medication list reviewed ROS: unable to obtain Functional assessment: PPS: 30% Functional status: dependent on ADLs, IADLs. Previously mostly independent Vital Signs Temp Pulse Resp BP Pulse Ox 36.7 C 77 18 163/51 H 90 L 08/10/16 09:02 08/10/16 09:02 08/10/16 09:02 08/10/16 09:02 08/10/16 09:02 Microbiology 08/06/16 11:10 - Final Sputum, Induced/Suctioned Sputum Culture - Final Laboratory Results 08/10/16 09:55 08/10/16 05:10 08/09/16 08/10/16 08/11/16 05:59 05:59 05:59 Intake Total 350 Output Total 100 840 Balance -100 -490 PT 16.3 SEC (12.0-15.0) H 08/09/16 23:20 INR 1.31 (0.83-1.16) H 08/09/16 23:20 Physical Exam - Physical Exam General Appearance: mild distress, other (non verbal, confused) Respiratory: No respiratory distress, No accessory muscle use Skin: normal color, warm/dry Extremities: No pedal edema Neuro/Psych: disoriented to person, disoriented to place, disoriented to time, other (hallunicating and confused) ICD10 Worksheet Patient Problems: Problems Problem Status Onset C. difficile diarrhea Acute ~08/06/16 Palliative care encounter Acute SBO (small bowel obstruction) Acute Acute chest pain Acute Aphasia Acute Dizziness Acute - ICD10 Problem Qualifiers (1) Palliative care encounter
[2016-08-10] MEDS ORDERED: FUROSEMIDE 20 MG/2 ML VIAL IVP ONE (15:02)
[2016-08-10 19:03] LABS: HEMATOCRIT 23.3 % (40.0-51.0); HEMOGLOBIN 7.8 g/dL (13.7-17.5)
[2016-08-10 19:09] LABS: POTASSIUM 3.4 mEq/L (3.5-5.2)
[2016-08-11] MEDS: POTASSIUM Cl (KCl) 100 ML IV SCH (00:08)
[2016-08-11] MEDS: DILTIAZEM 30 MG TAB TUBE SCH ×4 (01:07→17:11)
[2016-08-11] MEDS: MEROPENEM 1 GM in NS 100 ML IV SCH ×3 (01:28→17:10)
[2016-08-11] MEDS: PETROLATUM WHITE LEFTEYE SCH ×4 (05:07→20:31)
[2016-08-11] MEDS: MINERAL OIL LEFTEYE SCH ×4 (05:07→20:31)
[2016-08-11] MEDS: VANCOMYCIN 125 MG/2.5 ML UDL TUBE SCH ×4 (05:07→20:32)
[2016-08-11 05:08] LABS: HEMATOCRIT 21.6 % (40.0-51.0); HEMOGLOBIN 7.3 g/dL (13.7-17.5)
[2016-08-11 05:21] LABS: ANION GAP 5 mEq/L (8-16); CALCIUM 8.3 mg/dL (8.5-10.4); CARBON DIOXIDE 25 mEq/l (22-31); CHLORIDE 117 mEq/L (97-110); CREATININE 0.6 mg/dL (0.7-1.3); GLOMERULAR FILTRATION RATE > 60; GLUCOSE 147 mg/dL (70-100); POTASSIUM 3.6 mEq/L (3.5-5.2); SODIUM 147 mEq/L (134-144)
[2016-08-11] MEDS: FLUoxetine 20 MG CAP TUBE SCH (09:41)
[2016-08-11] MEDS: OXYBUTYNIN CHLORIDE 5 MG TAB TUBE SCH ×2 (09:42→20:31)
[2016-08-11] MEDS: EZETIMIBE 10 MG TAB TUBE SCH (09:42)
[2016-08-11] MEDS: PANTOPRAZOLE SODIUM 40 MG in NS 100 ML IV SCH ×2 (09:45→20:44)
[2016-08-11] MEDS: MOXIFLOXACIN HCL RTEYE SCH (10:03)
--- NOTE | 2016-08-11 10:19 | SOAPPROG ---
SOAP Progress Note Assessment/Plan: Assessment: s/p SBR - no new overnight issues. no further bleeding. still weak. met with palliative care yesterday - awaiting family members to discuss further. AVSS. Hb 7. comfortable. abd soft. slow progress with poor care home prognosis. they are most interested in quality of life and are looking forward to further discussion with the palliative care team and addit family members on saturday. 08/04/16 11:59 08/05/16 21:22 08/11/16 10:17 Objective: Vital Signs Temp Pulse Resp BP Pulse Ox 36.8 C 69 18 169/71 H 92 08/11/16 08:00 08/11/16 08:00 08/11/16 08:00 08/11/16 08:00 08/11/16 08:00 Laboratory Results 08/11/16 05:04 08/11/16 05:04 08/10/16 08/11/16 08/12/16 05:59 05:59 05:59 Intake Total 350 2900 Output Total 840 625 Balance -490 2275 PT 16.3 SEC (12.0-15.0) H 08/09/16 23:20 INR 1.31 (0.83-1.16) H 08/09/16 23:20 ICD10 Worksheet Patient Problems: Problems Problem Status Onset C. difficile diarrhea Acute ~08/06/16 Palliative care encounter Acute SBO (small bowel obstruction) Acute Acute chest pain Acute Aphasia Acute Dizziness Acute
--- NOTE | 2016-08-11 12:16 | HOSPPROG ---
Hospitalist Progress Note Assessment/Plan: # goals of care - and son very clear that they would like to focus on comfort. they would like for Mr Yonathan to be able to see his other son who is coming on Saturday. Will continue current level of care, but not escalate. DNR/ DNI, no transfer to ICU, no additional procedures. # acute UGIB - blood per PEG 08/09 - none since - discussed with - she would like to defer endoscopic eval at this time which I think is appropriate - cont protonix IV bid empirically - tube feeds ongoing - consider holding if continues to drop hgb - hold asa and lovenox ppx - seems less likely d/t anastomses given that blood was per PEG # ABLA s/p transfusion overnight # SBO d/t adhesive band with infarcted bowel s/p resection # pneumonia, hospital acquired - vanc IV and merrem iv D#5 # acute hypoxic resp failure - high O2 requirements # acute encephalopathy - multifactorial; requires a sitter today # a-fib with RVR - now NSR - cont dilt PO for now - holding asa given UGIB requiring transfusion # CVA - dysphagia/aspiration - had PEG for liquids, previously ate food # chronic SDH # trigeminal neuralgia with facial droop # c. dif # htn - dilt (amlodipine as outpatient) Subjective: long discussion with and son regarding prognosis and plan of care; no other acute events; he complains of SOB Objective: Vital Signs Temp Pulse Resp BP Pulse Ox 36.8 C 69 18 169/71 H 92 08/11/16 08:00 08/11/16 08:00 08/11/16 08:00 08/11/16 08:00 08/11/16 08:00 Laboratory Results 08/11/16 05:04 08/11/16 05:04 08/10/16 08/11/16 08/12/16 05:59 05:59 05:59 Intake Total 350 2900 Output Total 840 625 Balance -490 2275 PT 16.3 SEC (12.0-15.0) H 08/09/16 23:20 INR 1.31 (0.83-1.16) H 08/09/16 23:20 - Time Spent With Patient Time Spent with Patient: greater than 35 minutes Time Spent with Patient: Greater than 35 minutes spent on this patients care, greater than 50% of time spent counseling, educating, and coordinating care regarding the above mentioned plan. - Physical Exam Constitutional: no apparent distress ICD10 Worksheet Patient Problems: Problems Problem Status Onset Palliative care encounter Acute C. difficile diarrhea Acute ~08/06/16 Acute chest pain Acute Dizziness Acute Aphasia Acute SBO (small bowel obstruction) Acute
[2016-08-11] MEDS: VANCOMYCIN 1.25 GM in D5W 250 ML IV SCH (12:45)
[2016-08-11] MEDS: CARBOXYMETHYLCELLULOSE 0.5% 0.4 ML DROPERETTE RTEYE SCH ×4 (13:12→20:30)
[2016-08-11] MEDS: FUROSEMIDE 20 MG/2 ML VIAL IVP SCH (14:51)
[2016-08-11] MEDS ORDERED: CARBOXYMETHYLCELLULOSE 0.5% 0.4 ML DROPERETTE ONE (17:58)
[2016-08-11] MEDS: TERAZOSIN HCL 1 MG CAP TUBE SCH (20:31)
[2016-08-12] MEDS: DILTIAZEM 30 MG TAB TUBE SCH ×4 (00:47→18:17)
[2016-08-12] MEDS: MEROPENEM 1 GM in NS 100 ML IV SCH ×3 (00:51→18:16)
[2016-08-12] MEDS: MINERAL OIL LEFTEYE SCH ×4 (05:08→20:17)
[2016-08-12] MEDS: CARBOXYMETHYLCELLULOSE 0.5% 0.4 ML DROPERETTE RTEYE SCH ×4 (05:08→20:16)
[2016-08-12] MEDS: PETROLATUM WHITE LEFTEYE SCH ×4 (05:08→20:17)
[2016-08-12] MEDS: VANCOMYCIN 125 MG/2.5 ML UDL TUBE SCH ×4 (05:08→20:19)
[2016-08-12 05:21] LABS: ABSOLUTE NRBC COUNT 0.04 10^3/uL (0-0.01); ADD DIFF? YES; ADD MORPH? YES; ADD SCAN? NO; ATYPICAL LYMPHOCYTE FLAG 0 (0-99); FRAGMENT RBC FLAG 30 (0-99); HEMATOCRIT 19.9 % (40.0-51.0); LEFT SHIFT FLG 30 (0-99); LIPEMIA HEMOLYSIS FLAG 80 (0-99); MEAN CELL HEMOGLOBIN 32.8 pg (27.9-34.1); MEAN CELL HEMOGLOBIN CONCENTR. 32.7 g/dL (32.4-36.7); MEAN CELL VOLUME 100.5 fL (81.5-99.8); MEAN PLATELET VOLUME 11.1 fL (8.7-11.7); NRBC-AUTO% 0.2 % (0.0-0.2); PLATELET CLUMPS FLAG 10 (0-99); PLATELET COUNT 262 10^3/uL (150-400); RED BLOOD CELL COUNT 1.98 10^6/uL (4.40-6.38); RED CELL DISTRIBUTION WIDTH 18.5 % (11.5-15.2)
[2016-08-12 05:22] LABS: HEMOGLOBIN 6.5 g/dL (13.7-17.5)
[2016-08-12 05:38] LABS: ANION GAP 7 mEq/L (8-16); CARBON DIOXIDE 27 mEq/l (22-31); CHLORIDE 112 mEq/L (97-110); CREATININE 0.7 mg/dL (0.7-1.3); GLOMERULAR FILTRATION RATE > 60; GLUCOSE 129 mg/dL (70-100); POTASSIUM 3.2 mEq/L (3.5-5.2); SODIUM 146 mEq/L (134-144)
[2016-08-12 06:31] LABS: PLATELET ESTIMATE ADEQUATE (ADEQ)
[2016-08-12 06:32] LABS: ACANTHOCYTES 1+; MACROCYTES 1+; POLYCHROMASIA 1+
[2016-08-12 06:33] LABS: TOXIC GRANULATION PRESENT
[2016-08-12] MEDS ORDERED: IPRATROPIUM/ALBUTEROL 3 ML DEYVIAL IH PRN (08:00)
[2016-08-12] MEDS: EZETIMIBE 10 MG TAB TUBE SCH (09:30)
[2016-08-12] MEDS: OXYBUTYNIN CHLORIDE 5 MG TAB TUBE SCH ×2 (09:30→20:18)
[2016-08-12] MEDS: FUROSEMIDE 20 MG/2 ML VIAL IVP SCH ×2 (09:30→15:49)
[2016-08-12] MEDS: FLUoxetine 20 MG CAP TUBE SCH (09:30)
[2016-08-12] MEDS: PANTOPRAZOLE SODIUM 40 MG in NS 100 ML IV SCH ×2 (09:30→20:19)
--- NOTE | 2016-08-12 10:19 | SOAPPROG ---
SOAP Progress Note Assessment/Plan: Assessment: s/p SBR - shifted toward palliative care measures yesterday. requiring more oxygen. no new complaints. feeling weaker. Hb 6.5 today. AVSS. Hb 7. comfortable, lethargic. abd soft. 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 agree with family decision to move toward comfort care measure. discussed with at bedside. she reiterated her goal of quality of life and are looking forward to further discussion with the palliative care team and addit family members on saturday. would not transfuse at this time. discussed with hospitalist service as well. 08/04/16 11:59 08/05/16 21:22 08/11/16 10:17 08/12/16 10:17 Objective: Vital Signs Temp Pulse Resp BP Pulse Ox 36.9 C 77 18 162/67 H 92 08/12/16 07:40 08/12/16 07:40 08/12/16 07:40 08/12/16 07:40 08/12/16 07:40 Microbiology 08/07/16 03:15 Blood Culture - Final Blood 08/07/16 03:15 Blood Culture - Final Blood Laboratory Results 08/12/16 04:36 08/12/16 04:36 08/11/16 08/12/16 08/13/16 05:59 05:59 05:59 Intake Total 2900 710 340 Output Total 625 1150 200 Balance 2275 -440 140 PT 16.3 SEC (12.0-15.0) H 08/09/16 23:20 INR 1.31 (0.83-1.16) H 08/09/16 23:20 ICD10 Worksheet Patient Problems: Problems Problem Status Onset C. difficile diarrhea Acute ~08/06/16 Palliative care encounter Acute SBO (small bowel obstruction) Acute Acute chest pain Acute Aphasia Acute Dizziness Acute
[2016-08-12] MEDS: VANCOMYCIN 1.25 GM in D5W 250 ML IV SCH (11:40)
--- NOTE | 2016-08-12 11:41 | HOSPPROG ---
Hospitalist Progress Note Assessment/Plan: # goals of care - and son very clear that they would like to focus on comfort. they would like for Mr Yonathan to be able to see his other son who is coming on Saturday. Will continue current level of care, but not escalate. DNR/ DNI, no transfer to ICU, no additional procedures. # acute UGIB - blood per PEG 08/09 - none since - discussed with - she would like to defer endoscopic eval at this time which I think is appropriate - cont protonix IV bid empirically - tube feeds ongoing - consider holding if continues to drop hgb - hold asa and lovenox ppx - seems less likely d/t anastomses given that blood was per PEG # ABLA s/p 3U PRBC - hgb low today, no transfusion today - discussed with # SBO d/t adhesive band with infarcted bowel s/p resection # pneumonia, hospital acquired - vanc IV and merrem iv D#6 # acute hypoxic resp failure - high O2 requirements # acute encephalopathy - multifactorial; requires a sitter today # a-fib with RVR - now NSR - cont dilt PO for now - holding asa given UGIB requiring transfusion # CVA - dysphagia/aspiration - had PEG for liquids, previously ate food # chronic SDH # trigeminal neuralgia with facial droop # c. dif - vanc PO # htn - dilt (amlodipine as outpatient) Subjective: melena, some brbpr this morning Objective: Vital Signs Temp Pulse Resp BP Pulse Ox 36.9 C 77 18 162/67 H 92 08/12/16 07:40 08/12/16 07:40 08/12/16 07:40 08/12/16 07:40 08/12/16 07:40 Microbiology 08/07/16 03:15 Blood Culture - Final Blood 08/07/16 03:15 Blood Culture - Final Blood Laboratory Results 08/12/16 04:36 08/12/16 04:36 08/11/16 08/12/16 08/13/16 05:59 05:59 05:59 Intake Total 2900 710 340 Output Total 625 1150 200 Balance 2275 -440 140 PT 16.3 SEC (12.0-15.0) H 08/09/16 23:20 INR 1.31 (0.83-1.16) H 08/09/16 23:20 - Time Spent With Patient Time Spent with Patient: greater than 25 minutes Time Spent with Patient: Greater than 25 minutes spent on this patients care, greater than 50% of time spent counseling, educating, and coordinating care regarding the above mentioned plan. - Physical Exam Constitutional: chronically ill appearing, other (sleeping) Respiratory: other (face mask, slight resp distress) ICD10 Worksheet Patient Problems: Problems Problem Status Onset Palliative care encounter Acute C. difficile diarrhea Acute ~08/06/16 Acute chest pain Acute Dizziness Acute Aphasia Acute SBO (small bowel obstruction) Acute
[2016-08-12] MEDS ORDERED: LISINOPRIL 20 MG TAB TUBE ONE (18:15)
[2016-08-12] MEDS: TERAZOSIN HCL 1 MG CAP TUBE SCH (20:18)
[2016-08-13] MEDS: DILTIAZEM 30 MG TAB TUBE SCH ×4 (01:14→18:44)
[2016-08-13] MEDS: MEROPENEM 1 GM in NS 100 ML IV SCH ×2 (01:15→10:41)
[2016-08-13] MEDS: VANCOMYCIN 125 MG/2.5 ML UDL TUBE SCH ×4 (05:35→21:32)
[2016-08-13] MEDS: CARBOXYMETHYLCELLULOSE 0.5% 0.4 ML DROPERETTE RTEYE SCH ×4 (05:35→21:32)
[2016-08-13] MEDS: MINERAL OIL LEFTEYE SCH ×4 (05:36→21:34)
[2016-08-13] MEDS: PETROLATUM WHITE LEFTEYE SCH ×4 (05:36→21:34)
--- NOTE | 2016-08-13 08:06 | SOAPPROG ---
SOAP Progress Note Assessment/Plan: Assessment: no overnight issues. resting quietly in chair. did not wake. await family / palliative care discussion today. i am in support of their decision. s/p SBR - shifted toward palliative care measures yesterday. requiring more oxygen. no new complaints. feeling weaker. Hb 6.5 today. AVSS. Hb 7. comfortable, lethargic. abd soft. slow progress with poor roasterman prognosis. agree with family decision to move toward comfort care measure. discussed with at bedside. she reiterated her goal of quality of life and are looking forward to further discussion with the palliative care team and addit family members on saturday. would not transfuse at this time. discussed with hospitalist service as well. 08/04/16 11:59 08/05/16 21:22 08/11/16 10:17 08/12/16 10:17 08/13/16 08:05 Objective: Vital Signs Temp Pulse Resp BP Pulse Ox 36.6 C 72 16 153/59 H 97 08/13/16 07:39 08/13/16 07:39 08/13/16 07:39 08/13/16 07:39 08/13/16 07:39 Microbiology 08/07/16 03:15 Blood Culture - Final Blood 08/07/16 03:15 Blood Culture - Final Blood Laboratory Results 08/12/16 04:36 08/12/16 04:36 08/12/16 08/13/16 08/14/16 05:59 05:59 05:59 Intake Total 710 1410 Output Total 1150 200 Balance -440 1210 PT 16.3 SEC (12.0-15.0) H 08/09/16 23:20 INR 1.31 (0.83-1.16) H 08/09/16 23:20 ICD10 Worksheet Patient Problems: Problems Problem Status Onset C. difficile diarrhea Acute ~08/06/16 Palliative care encounter Acute SBO (small bowel obstruction) Acute Acute chest pain Acute Aphasia Acute Dizziness Acute
[2016-08-13 08:17] LABS: ABSOLUTE NRBC COUNT 0.03 10^3/uL (0-0.01); ADD DIFF? YES; ADD SCAN? NO; ATYPICAL LYMPHOCYTE FLAG 0 (0-99); FRAGMENT RBC FLAG 0 (0-99); LEFT SHIFT FLG 30 (0-99); LIPEMIA HEMOLYSIS FLAG 80 (0-99); MEAN CELL HEMOGLOBIN 32.7 pg (27.9-34.1); MEAN CELL HEMOGLOBIN CONCENTR. 32.2 g/dL (32.4-36.7); MEAN CELL VOLUME 101.5 fL (81.5-99.8); MEAN PLATELET VOLUME 10.3 fL (8.7-11.7); NRBC-AUTO% 0.2 % (0.0-0.2); PLATELET CLUMPS FLAG 0 (0-99); PLATELET COUNT 243 10^3/uL (150-400); RED BLOOD CELL COUNT 2.05 10^6/uL (4.40-6.38); RED CELL DISTRIBUTION WIDTH 18.2 % (11.5-15.2)
[2016-08-13 08:19] LABS: ADD MORPH? NO; HEMATOCRIT 20.8 % (40.0-51.0); HEMOGLOBIN 6.7 g/dL (13.7-17.5)
[2016-08-13 08:42] LABS: ANION GAP 7 mEq/L (8-16); CALCIUM 7.8 mg/dL (8.5-10.4); CARBON DIOXIDE 27 mEq/l (22-31); CHLORIDE 113 mEq/L (97-110); CREATININE 0.7 mg/dL (0.7-1.3); GLOMERULAR FILTRATION RATE > 60; GLUCOSE 120 mg/dL (70-100); PLATELET ESTIMATE ADEQUATE (ADEQ); POTASSIUM 3.1 mEq/L (3.5-5.2); SODIUM 147 mEq/L (134-144)
[2016-08-13 08:44] LABS: MACROCYTES 1+; POLYCHROMASIA 1+
[2016-08-13] MEDS: PANTOPRAZOLE SODIUM 40 MG in NS 100 ML IV SCH (08:55)
[2016-08-13] MEDS: OXYBUTYNIN CHLORIDE 5 MG TAB TUBE SCH ×2 (08:56→21:32)
[2016-08-13] MEDS: EZETIMIBE 10 MG TAB TUBE SCH (08:56)
[2016-08-13] MEDS: FLUoxetine 20 MG CAP TUBE SCH (08:56)
[2016-08-13] MEDS ORDERED: POTASSIUM CL 20 MEQ/15 ML UDCUP TUBE ONE (10:45)
[2016-08-13] MEDS: FUROSEMIDE 20 MG/2 ML VIAL IVP SCH (11:34)
--- NOTE | 2016-08-13 11:43 | HOSPPROG ---
Hospitalist Progress Note Assessment/Plan: # goals of care - comfort care. his son vianney is coming into town this afternoon. will plan to meet with [facility] tomorrow at 10am. after that, will plan to transition to snf with hospice, anticipate tomorrow. DNR/DNI. stop antibiotics today (except vanc PO), stop diuretics and all meds not related to comfort. # acute UGIB - blood per PEG 08/09 - none since - discussed with - she would like to defer endoscopic eval at this time which I think is appropriate - hold asa and lovenox ppx - seems less likely d/t anastomses given that blood was per PEG # ABLA s/p 3U PRBC - hgb low today, no additional transfusions # SBO d/t adhesive band with infarcted bowel s/p resection # pneumonia, hospital acquired - s/p vanc IV and merrem iv x 7 days # acute hypoxic resp failure - high O2 requirements - actually better today # acute encephalopathy - multifactorial, waxes and wanes c/w delirium # a-fib with RVR - now NSR - cont dilt PO for now - holding asa given UGIB requiring transfusion # CVA - dysphagia/aspiration - had PEG for liquids, previously ate food - regular diet today given overall goals # chronic SDH # trigeminal neuralgia with facial droop # c. dif - vanc PO # htn - dilt (amlodipine as outpatient) Subjective: overall doing slightly beter tomorrow; care discussed with his son and in detail Objective: Vital Signs Temp Pulse Resp BP Pulse Ox 36.6 C 72 16 153/59 H 97 08/13/16 07:39 08/13/16 07:39 08/13/16 07:39 08/13/16 07:39 08/13/16 07:39 Microbiology 08/07/16 03:15 Blood Culture - Final Blood 08/07/16 03:15 Blood Culture - Final Blood Laboratory Results 08/13/16 08:05 08/13/16 08:05 08/12/16 08/13/16 08/14/16 05:59 05:59 05:59 Intake Total 710 1410 Output Total 1150 200 Balance -440 1210 PT 16.3 SEC (12.0-15.0) H 08/09/16 23:20 INR 1.31 (0.83-1.16) H 08/09/16 23:20 - Time Spent With Patient Time Spent with Patient: greater than 25 minutes Time Spent with Patient: Greater than 25 minutes spent on this patients care, greater than 50% of time spent counseling, educating, and coordinating care regarding the above mentioned plan. - Physical Exam Constitutional: no apparent distress, other (awakened and aware of his surroundings) ICD10 Worksheet Patient Problems: Problems Problem Status Onset Palliative care encounter Acute C. difficile diarrhea Acute ~08/06/16 Acute chest pain Acute Dizziness Acute Aphasia Acute SBO (small bowel obstruction) Acute
[2016-08-13] MEDS: VANCOMYCIN 1.25 GM in D5W 250 ML IV SCH (12:45)
--- NOTE | 2016-08-13 14:51 | PDPCPN ---
Palliative Care Progress Note Assessment/Plan: HPI: Cleve Mcmanus is a 85 yo male with PMH CVA with dysphagia s/p PEG tube admitted to the hospital for abdominal pain and nausea/vomiting. Found to have possible SBO s/p ex lap with partial small bowel resection due to ischemic bowel. Hospitalization complicated by acute respiatory failure from aspiration PNA on last day of IV antibiotics, c diff infection, and now GI bleed. Overall with poor prognosis and waxing /waning mental status. Continues to be very weak and confused. Palliative care consulted for complex medical decision making. Met with sybil Sanders and son Will outside of the room. We talked about Cleve seeming to be improved today with ability to talk and even had some chocolate brownies yesterday. We discussed goals with continued GI bleed yesterday and overall poor performance status and prognosis. They feel Cleve values quality of life and his current state would not be in line with life prolongation. Discussed hospice care back at with ongoing waxing/waning status and periods of rally. Assessment: Physical: - Pain: appears comfortable -tylenol PRN - Dyspnea: - PEG tube - speech follow - C diff - would continue oral vancomycin for comfort Emotional/psychological: acute encephalopathy: on prozac scheduled - maintain normal routines with low stimulation Advanced Care Planning: Is patient decisional?: no Code Status:DNR/DNI POA: Sybil is MDPOA. Plan: [facility] coming Saturday at 10 am for eval and treat. Plan is to go to SNF facility with hospice care. Focus is on quality of life and comfort only. Finish out course of antibiotics and allow for pleasure feeding as tolerated. Subjective: I'm tired Objective: Vital Signs Temp Pulse Resp BP Pulse Ox 36.3 C 72 18 130/54 H 95 08/13/16 13:46 08/13/16 13:46 08/13/16 13:46 08/13/16 13:46 08/13/16 13:46 Laboratory Results 08/13/16 08:05 08/13/16 08:05 08/12/16 08/13/16 08/14/16 05:59 05:59 05:59 Intake Total 710 1410 Output Total 1150 200 Balance -440 1210 PT 16.3 SEC (12.0-15.0) H 08/09/16 23:20 INR 1.31 (0.83-1.16) H 08/09/16 23:20 Physical Exam - Physical Exam General Appearance: alert, no apparent distress Respiratory: No respiratory distress, No accessory muscle use Skin: normal color, warm/dry Extremities: No pedal edema Neuro/Psych: alert, other (fatigued) ICD10 Worksheet Patient Problems: Problems Problem Status Onset C. difficile diarrhea Acute ~08/06/16 Palliative care encounter Acute SBO (small bowel obstruction) Acute Acute chest pain Acute Aphasia Acute Dizziness Acute - ICD10 Problem Qualifiers (1) Palliative care encounter
[2016-08-13] MEDS: TERAZOSIN HCL 1 MG CAP TUBE SCH (21:32)
[2016-08-14] MEDS: DILTIAZEM 30 MG TAB TUBE SCH ×3 (00:24→12:18)
[2016-08-14] MEDS: MINERAL OIL LEFTEYE SCH ×2 (05:20→12:19)
[2016-08-14] MEDS: PETROLATUM WHITE LEFTEYE SCH ×2 (05:20→12:19)
[2016-08-14] MEDS: VANCOMYCIN 125 MG/2.5 ML UDL TUBE SCH ×2 (05:21→12:19)
[2016-08-14] MEDS: CARBOXYMETHYLCELLULOSE 0.5% 0.4 ML DROPERETTE RTEYE SCH ×2 (05:25→12:31)
[2016-08-14 07:39] VITALS: BP 140/50; TEMP 97.9
[2016-08-14] MEDS: OXYBUTYNIN CHLORIDE 5 MG TAB TUBE SCH (08:26)
[2016-08-14] MEDS: FLUoxetine 20 MG CAP TUBE SCH (08:27)
[2016-08-14 08:58] VITALS: RESP 16
[2016-08-14] MEDS ORDERED: PANTOPRAZOLE SODIUM 40 MG TAB PO SCH (09:00)
[2016-08-14 12:35] VITALS: PULSE 70; O2SAT 98
--- NOTE | 2016-08-14 12:56 | PDIAF ---
- Diagnosis Code Status: Do Not Resuscitate - Medication Management Discharge Medications: Medications to Continue on Transfer Tamsulosin HCl [Flomax 0.4 MG (*)] 0.4 mg TUBE HS 12/14/14 [Last Taken 07/29/16] Carboxymethylcellulose 1% [Refresh Celluvisc (*)] 1 each RTEYE QID 05/26/16 [ Last Taken 07/29/16] Fluoxetine HCl [Prozac 40 mg] 40 mg TUBE DAILY 05/26/16 [Last Taken 07/29/16] Mineral Oil/Petrolatum,White [Genteal Pm Ointment] 3.5 gm LEFTEYE QID 05/26/16 [ Last Taken 07/29/16] Moxifloxacin HCl [Vigamox] 1 drops RTEYE DAILY 05/26/16 [Last Taken 07/29/16] Oxybutynin Chloride [Ditropan Xl] 10 mg TUBE HS 05/26/16 [Last Taken 07/29/16] amLODIPine BESYLATE [Norvasc 2.5 mg (*)] 2.5 mg TUBE BID 05/26/16 [Last Taken 21:00] Acetaminophen [Tylenol 325mg (*)] 650 mg PO Q4 PRN #0 tab 05/27/16 [Last Taken Unknown] Aspirin [Aspirin 325 mg (*)] 325 mg PO DAILY #30 tab 05/27/16 [Last Taken ] Difluprednate [Durezol] 1 drop RTEYE DAILY@12 07/30/16 [Last Taken 07/29/16] ALPRAZolam [Xanax 0.5 MG (*)] 0.25 mg TUBE HS PRN #20 tab 08/14/16 [Last Taken Unknown] Diltiazem [Cardizem Ir Q6hr] 30 mg TUBE Q6HRS #0 tab 08/14/16 [Last Taken Unknown] LORazepam [Ativan] 0.5 mg PO Q4-6PRN PRN #20 tablet 08/14/16 [Last Taken Unknown ] Vancomycin [Vancocin Oral Liquid] 125 mg TUBE QID #1 udl 08/14/16 [Last Taken Unknown] morphINE [Roxanol Solution 20 mg/ml 30 ml] 1 - 10 mg PO Q1-2PRN PRN #1 bottle [Last Taken Unknown] Truck Spotter Antibiotics: n/a, 1 week of PO vanco Truck Spotter Antibiotic Stop Date: 08/20/16 Discharge Medications: Refer to the Discharge Home Medication list for PRN reason. PICC Care - Routine: N/A - Orders Home Care Face to Face: Dagmar Lee MD 08/14/2016 Isolation Type: c diff, being treated Oxygen: 2-4 L continuous Diet Recommendation: no restrictions on diet, other (comfort feeding, on hospice ) Diet Texture: Dysphagia 1 - Pureed, [place] Thick Liquids Tube feeding: free water only through PEG [place]: No - Follow Up Care Current Providers and Referrals: Patient,NotPresent [Unknown] - As per Instructions
== END 2016-08-14 15:36 | disposition hospice, home (50) | DRG 329 ==
LOC: EDUNIT# → F3E 05:38 → F2N 08-07 02:05 → F3E 08-08 18:07
PROVIDERS: ADMIT Surgery; ATTEND Family Medicine
PROC: 0DB80ZZ Excision of Small Intestine, Open Approach (ICD-10-PCS; principal; 2016-07-30 16:00)
PROC: 30233N1 Transfusion of Nonautologous Red Blood Cells into Peripheral Vein, Percutaneous Approach (ICD-10-PCS; 2016-08-01)
PROC: 5A09357 Assistance with Respiratory Ventilation, Less than 24 Consecutive Hours, Continuous Positive Airway Pressure (ICD-10-PCS; 2016-08-07)
DX: K56.5 Intestinal adhesions [bands] with obstruction (postinfection) (principal); K55.021 Focal (segmental) acute infarction of small intestine; D62 Acute posthemorrhagic anemia; J69.0 Pneumonitis due to inhalation of food and vomit; J96.01 Acute respiratory failure with hypoxia; A04.7 Enterocolitis due to Clostridium difficile; K92.2 Gastrointestinal hemorrhage, unspecified; E87.6 Hypokalemia; Z51.5 Encounter for palliative care; I69.391 Dysphagia following cerebral infarction; R13.13 Dysphagia, pharyngeal phase; Z93.1 Gastrostomy status; I48.0 Paroxysmal atrial fibrillation; I25.10 Atherosclerotic heart disease of native coronary artery without angina pectoris; I10 Essential (primary) hypertension; G50.0 Trigeminal neuralgia; N40.0 Benign prostatic hyperplasia without lower urinary tract symptoms; Z96.641 Presence of right artificial hip joint; Z66 Do not resuscitate
CPT/HCPCS: 83010-90; 92507-GN; 92523-GN; 92526-GN; 92610-GN; 92611-GN; 96374; 97116-GP; 97162-GP; 97166-GO; 97530-GP; 97535-GO; G8978-GP-CL; G8979-GP-CI; G8987-GO-CL; G8988-GO-CJ; G8996-GN-CK; G8996-GN-CM; G8997-GN-CJ; G8997-GN-CK; G8998-GN-CL; G9165-GN-CL; G9166-GN-CJ; J0690; J0692; J1100; J1170; J1335; J1650; J1940; J2185; J2405; J2543; J2704; J3010; J3370; P9016; Q9967

== ENCOUNTER → 2017-03-07 | Outpatient (CLI) | payer OTHER, MEDICARE | LOC: BMCIMAGING 11:38 | PROVIDERS: ATTEND Internal Medicine | DX: R10.2 Pelvic and perineal pain (principal) ==

== ENCOUNTER → 2017-05-07 | Outpatient (CLI) | payer OTHER, MEDICARE | LOC: FIMAGING 13:30 | PROVIDERS: ATTEND Physician Assistant Medical | DX: R05 Cough (principal) ==

== ENCOUNTER 2017-05-14 14:23 | Inpatient (IN) | payer OTHER, MEDICARE ==
--- NOTE | 2017-05-14 14:16 | EDPHY ---
H & P Time Seen by Provider: 05/14/17 14:25 Constitutional: Initial Vital Signs Temperature (C) 36.4 C 05/14/17 14:52 Heart Rate 78 05/14/17 14:52 Respiratory Rate 18 05/14/17 14:52 Blood Pressure 195/99 H 05/14/17 14:52 O2 Sat (%) 95 05/14/17 14:52 O2 Delivery Mode Room Air Allergies/Adverse Reactions: atorvastatin [From Lipitor] Allergy (Severe, Verified 05/14/17 14:52) Other-Enter Comments oxycodone [From Percocet] Allergy (Intermediate, Verified 05/14/17 14:52) Other-Enter Comments Home Medications: Medication Instructions Recorded Tamsulosin HCl [Flomax 0.4 MG (*)] 0.4 mg TUBE HS 12/14/14 Carboxymethylcellulose 1% [Refresh 1 each RTEYE QID 05/26/16 Celluvisc (*)] Fluoxetine HCl [Prozac 40 mg] 40 mg TUBE DAILY 05/26/16 Mineral Oil/Petrolatum,White 3.5 gm LEFTEYE QID 05/26/16 [Genteal Pm Ointment] Moxifloxacin HCl [Vigamox] 1 drops RTEYE DAILY 05/26/16 Oxybutynin Chloride [Ditropan Xl] 10 mg TUBE HS 05/26/16 amLODIPine BESYLATE [Norvasc 2.5 2.5 mg TUBE BID 05/26/16 mg (*)] Acetaminophen [Tylenol 325mg (*)] 650 mg PO Q4 PRN #0 tab 05/27/16 Aspirin [Aspirin 325 mg (*)] 325 mg PO DAILY #30 tab 05/27/16 Difluprednate [Durezol] 1 drop RTEYE DAILY@12 07/30/16 ALPRAZolam [Xanax 0.5 MG (*)] 0.25 mg TUBE HS PRN #20 tab 08/14/16 Diltiazem [Cardizem Ir Q6hr] 30 mg TUBE Q6HRS #0 tab 08/14/16 LORazepam [Ativan] 0.5 mg PO Q4-6PRN PRN #20 tablet 08/14/16 Vancomycin [Vancocin Oral Liquid] 125 mg TUBE QID #1 udl 08/14/16 morphINE [Roxanol Solution 20 1 - 10 mg PO Q1-2PRN PRN #1 bottle 08/14/16 mg/ml 30 ml] Metoprolol Tartrate [Lopressor 25 25 mg PO BID 05/14/17 mg (*)] Oxybutynin Chloride Xl [Ditropan 15 mg PO DAILY 05/14/17 Xl 5mg (*)] traMADol [Ultram 50 mg (*)] 50 mg PO Q6H PRN 05/14/17 Medical Decision Making - Diagnostics Imaging Results: Imaging Impressions Head CT 05/14/17 14:25 Impression: 1. No acute intracranial findings. 2. Diffuse cerebral atrophy with periventricular and subcortical low attenuation consistent with chronic microvascular ischemic gliosis. 3. Persistent complete opacification in the maxillary sinus with a possible medial maxillary erosion. 4. Additional findings as above. Findings called to the ED on 05/14/2017 at 1437 hours. ED Course/Re-evaluation: CHIEF COMPLAINT: Left-sided deficits - Stroke alert HISTORY OF PRESENT ILLNESS: The patient is an 84 y/o male with a history of arriving via EMS as a stroke alert after left-sided deficits. About 1:15PM he had a seizure. After the seizure, he had left sided deficits and summoned EMS. EMS noted deficits and reports he is not able to follow commands. Information obtained from EMS due to patient's status. REVIEW OF SYSTEMS: A 10 point review of systems was performed and is negative with the exception of the elements mentioned in the history of present illness. PHYSICAL EXAM: HR, BP, O2 Sat, RR. Temp noted General Appearance: Alert, well hydrated, appropriate, and non-toxic appearing. Head: Atraumatic without scalp tenderness or obvious injury Eyes: Pupils equal, round, reactive to light and accommodation, EOMI, no trauma , no injection. Ears: Clear bilaterally, no perforation, normal landmarks Nose: Atraumatic, no rhinorrhea, clear. Throat: There is no erythema or exudates, no lesions, normal tonsils, mucus membranes moist. Neck: Supple, nontender, no lymphadenopathy. Respiratory: No retractions, no distress, no wheezes, and no accessory muscle use. Lungs are clear to auscultation bilaterally. Cardiovascular: Regular rate and rhythm, no murmurs, rubs, or gallops.Good capillary refill all extremities. Gastrointestinal: Abdomen is soft, nontender, non-distended, no masses, no rebound, no guarding, no peritoneal signs. Musculoskeletal: Normal active ROM of all extremities, atraumatic. Neurological: Not responding to commands or questions. Left sided-facial droop. Skin: No rashes, good turgor, no nodules on palpation. Past medical history: BPH, atrial fibrillation, hypertension, CVA, PEG tube, TIA , coronary disease Past surgical history: Denies Family history: Non-contributory Social history: Lives at [facility], at bedside, retired DIAGNOSTICS/PROCEDURES/CRITICAL CARE TIME: Study: CT of the head without contrast Indication: Left-sided deficits Results: CT scan of the body parts was obtained. The results of the study are normal. The study was read by the radiologist, Dr. Benavides. I viewed the images myself on the PACS system. Study: CT of the head and neck with contrast Indication: Left-sided deficits with normal CT Results: CT scan of the body parts was obtained. The results of the study are normal. The study was read by the radiologist, Dr. Benavides. I viewed the images myself on the PACS system. DIFFERENTIAL DIAGNOSIS: The differential diagnosis for the patient's neurologic deficits included but was not limited to peripheral causes, central causes including CVA, TIA, electrolyte abnormalities and dehydration, cardiogenic causes, atypical causes like migraine syndrome. MEDICAL DECISION MAKING: I met the patient on arrival to the ED at 2:23PM. EMS reported onset of left-sided deficits 15 minutes prior at 2:08 PM. On my exam, he had left-sided facial droop and was not following commands or answering questions. I sent him immediately for CT. 2:47 PM- CT does not indicate a bleed or other obvious etiology. 2:36 PM- CTA does not indicate an etiology. Plan for [facility] to evaluate using robot. 3:00 PM- He will be admitted to the step down unit for analysis of stroke, seizure, or post seizure paralysis. Dr. Edwards will be the admitting physician. The family agrees to this course of action as does [facility]. - Data Points Laboratory Results: Laboratory Results 05/14/17 14:25 05/14/17 05/14/17 05/14/17 14:35 14:25 14:25 WBC RBC Hgb POC Hgb 17.3 gm/dL gm/dL (13.7-17.5) Hct POC Hct 51 % % (40-51) MCV MCH MCHC RDW Plt Count MPV Neut % (Auto) Lymph % (Auto) [place] % (Auto) Eos % (Auto) Baso % (Auto) Nucleat RBC Rel Count Absolute Neuts (auto) Absolute Lymphs (auto) Absolute Monos (auto) Absolute Eos (auto) Absolute Basos (auto) Absolute Nucleated RBC Immature Gran % Immature Gran # PT 14.9 SEC SEC (12.0-15.0) INR 1.15 (0.83-1.16) APTT 31.6 SEC SEC (23.0-38.0) POC Sodium 139 mEq/L mEq/L (135-145) Sodium Pending POC Potassium 3.9 mEq/L mEq/L (3.3-5.0) Potassium Pending POC Chloride 101 mEq/L mEq/L (97-110) Chloride Pending Carbon Dioxide Pending Anion Gap Pending POC BUN 19 mg/dL mg/dL (7-23) BUN Pending Creatinine Pending POC Creatinine 0.8 mg/dL mg/dL (0.7-1.3) Estimated GFR Pending Glucose Pending POC Glucose 109 mg/dL H mg/dL (70-100) Calcium Pending Troponin I Pending 05/14/17 14:25 WBC 11.82 10^3/uL H 10^3/uL (3.80-9.50) RBC 4.79 10^6/uL 10^6/uL (4.40-6.38) Hgb 15.8 g/dL g/dL (13.7-17.5) POC Hgb Hct 46.0 % % (40.0-51.0) POC Hct MCV 96.0 fL fL (81.5-99.8) MCH 33.0 pg pg (27.9-34.1) MCHC 34.3 g/dL g/dL (32.4-36.7) RDW 13.4 % % (11.5-15.2) Plt Count 184 10^3/uL 10^3/uL (150-400) MPV 11.0 fL fL (8.7-11.7) Neut % (Auto) 71.2 % % (39.3-74.2) Lymph % (Auto) 17.1 % % (15.0-45.0) [place] % (Auto) 6.7 % % (4.5-13.0) Eos % (Auto) 4.0 % % (0.6-7.6) Baso % (Auto) 0.5 % % (0.3-1.7) Nucleat RBC Rel Count 0.0 % % (0.0-0.2) Absolute Neuts (auto) 8.42 10^3/uL H 10^3/uL (1.70-6.50) Absolute Lymphs (auto) 2.02 10^3/uL 10^3/uL (1.00-3.00) Absolute Monos (auto) 0.79 10^3/uL 10^3/uL (0.30-0.80) Absolute Eos (auto) 0.47 10^3/uL H 10^3/uL (0.03-0.40) Absolute Basos (auto) 0.06 10^3/uL 10^3/uL (0.02-0.10) Absolute Nucleated RBC 0.00 10^3/uL 10^3/uL (0-0.01) Immature Gran % 0.5 % % (0.0-1.1) Immature Gran # 0.06 10^3/uL 10^3/uL (0.00-0.10) PT INR APTT POC Sodium Sodium POC Potassium Potassium POC Chloride Chloride Carbon Dioxide Anion Gap POC BUN BUN Creatinine POC Creatinine Estimated GFR Glucose POC Glucose Calcium Troponin I Point of Care Test Results: 05/14/17 14:35 POC Sodium 139 POC Potassium 3.9 POC Chloride 101 POC BUN 19 POC Creatinine 0.8 POC Glucose 109 H Departure - Departure Disposition: [facility] Inpatient Acute Clinical Impression: Left-sided weakness Condition: Fair Report Scribed for: Samy Swanson Report Scribed by: Wendie Rao Date of Report: 05/14/17 Time of Report: 15:20
[2017-05-14] MEDS ORDERED: IOPAMIDOL (ISOVUE 370) 100 ML BTL IV ONE (14:31)
[2017-05-14 14:45] LABS: PLATELET COUNT 184 10^3/uL (150-400)
--- NOTE | 2017-05-14 14:48 | CPEKG ---
Heart Rate: 67 RR Interval: 896 P-R Interval: 224 QRSD Interval: 92 QT Interval: 456 QTC Interval: 482 P [place]: 3 QRS [place]: 30 T Wave [place]: 5 EKG Severity - ABNORMAL ECG - EKG Impression: SINUS RHYTHM EKG Impression: FIRST DEGREE AV BLOCK EKG Impression: CONSIDER LEFT VENTRICULAR HYPERTROPHY EKG Impression: BORDERLINE PROLONGED QT INTERVAL Electronically Signed By: Alvarez Donaldson 15-May-2017 11:27:06
[2017-05-14 14:54] LABS: INR 1.15 (0.83-1.16); PROTIME(PATIENT) 14.9 SEC (12.0-15.0)
[2017-05-14] MEDS ORDERED: levETIRAcetam 500MG/NACL 100 ML IV ONE (16:00)
[2017-05-14] MEDS ORDERED: LABETALOL HCL 5 MG/ML 20 ML MDV IVP PRN (16:10)
--- NOTE | 2017-05-14 16:35 | PDGENHP ---
History and Physical - Chief Complaint seizure - History of Present Illness 86 yo male with h/o prior CVA and A fib presents to ED via EMS after a witnessed tonic/clonic seizure at home. He was last admitted in 10/2016 for SBO due to ischemic bowel requiring small bowel resection, complicated by UGIB requiring 3 units prbc's and PEG tube placement. He spent 2 weeks at SNF rehab , then went home on hospice. He has recently been discharged from hospice care. 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 He otherwise has no residual neurodeficits from his prior stroke. His and son are present at the bedside and report he is a fall risk and can be impulsive. He now has 24 hr caregivers at home. He drinks nectar thick liquids and received free water boluses in his peg tube for hydration. He has never had a seizure before today. He had a meeting with his family and a peanut farmer this morning and was mentating normally. He has not complained of headaches, vision changes, focal weakness or fevers. In the ED, he presented as a stroke alert and was evaluated by [facility]. He had LUE and LLE weakness on arrival, which has improved. Therefore, he was not deemed a candidate for TpA and consideration was given to a Samy's Paralysis. He is admitted to the hospital for further evaluation. History Information - Allergies/Home Medication List Allergies/Adverse Reactions: atorvastatin [From Lipitor] Allergy (Severe, Verified 05/14/17 15:44) Other-Enter Comments oxycodone [From Percocet] Allergy (Intermediate, Verified 05/14/17 15:44) Other-Enter Comments Home Medications: Tamsulosin HCl [Flomax 0.4 MG (*)] 0.4 mg TUBE HS 12/14/14 [Last Taken 05/13/17] Carboxymethylcellulose 1% [Refresh Celluvisc (*)] 1 each RTEYE QID 05/26/16 [ Last Taken 05/14/17] Fluoxetine HCl [Prozac 40 mg] 40 mg TUBE DAILY 05/26/16 [Last Taken 05/14/17] Mineral Oil/Petrolatum,White [Genteal Pm Ointment] 3.5 gm LEFTEYE QID 05/26/16 [ Last Taken 05/14/17] Moxifloxacin HCl [Vigamox] 1 drops RTEYE DAILY 05/26/16 [Last Taken 05/14/17] Oxybutynin Chloride [Ditropan Xl] 10 mg TUBE HS 05/26/16 [Last Taken 05/13/17] ALPRAZolam [Xanax 0.5 MG (*)] 0.25 mg TUBE HS 05/14/17 [Last Taken 05/13/17] Metoprolol Tartrate [Lopressor 25 mg (*)] 25 mg PO BID 05/14/17 [Last Taken 04/28] Oxybutynin Chloride Xl [Ditropan Xl 5mg (*)] 5 mg PO DAILY 05/14/17 [Last Taken 05/14/17] I have personally reviewed and updated: family history, medical history, social history, surgical history - Past Medical History atrial fibrillation, CVA, hypertension Additional medical history: 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 H/O UGIB 07/2016. H/O CVA. H/O C diff. Dysphagia- presence of peg, on nectar thick liquids. BPH - Surgical History Additional surgical history: Right hip surgery. Small bowel resection 07/2016 - Family History Positive for: non-pertinent - Social History Smoking Status: Never smoked Alcohol Use: None Drug Use: None Additional social history: Lives at home with , has 24 hr caregivers, fall risk Review of Systems Review of Systems: ROS: 10pt was reviewed & negative except for what was stated in HPI & below Physical Exam Physical Exam: Temp Pulse Resp BP Pulse Ox 36.4 C 61 18 205/79 H 94 05/14/17 14:52 05/14/17 14:59 05/14/17 14:59 05/14/17 14:59 05/14/17 14:59 Constitutional: no apparent distress, other (mild, chronic right facial droop) Eyes: PERRL Ears, Nose, Mouth, Throat: moist mucous membranes Cardiovascular: regular rate and rhythym Respiratory: no respiratory distress, clear to auscultation Gastrointestinal: normoactive bowel sounds, soft, non-tender abdomen Skin: warm Musculoskeletal: other (LUE 4/5 strength, LLE 3/5 strength) Neurologic: other (A&O x2, 7 digits forward, mild left pronator drift, mild LLE weakness with drift against gravity) Psychiatric: interacting appropriately Lab Data & Imaging Review 05/14/17 14:25 05/14/17 14:25 WBC 11.82 10^3/uL (3.80-9.50) H 05/14/17 14:25 RBC 4.79 10^6/uL (4.40-6.38) 05/14/17 14:25 Hgb 15.8 g/dL (13.7-17.5) 05/14/17 14:25 POC Hgb 17.3 gm/dL (13.7-17.5) 05/14/17 14:35 Hct 46.0 % (40.0-51.0) 05/14/17 14:25 POC Hct 51 % (40-51) 05/14/17 14:35 MCV 96.0 fL (81.5-99.8) 05/14/17 14:25 MCH 33.0 pg (27.9-34.1) 05/14/17 14:25 MCHC 34.3 g/dL (32.4-36.7) 05/14/17 14:25 RDW 13.4 % (11.5-15.2) 05/14/17 14:25 Plt Count 184 10^3/uL (150-400) 05/14/17 14:25 MPV 11.0 fL (8.7-11.7) 05/14/17 14:25 Neut % (Auto) 71.2 % (39.3-74.2) 05/14/17 14:25 Lymph % (Auto) 17.1 % (15.0-45.0) 05/14/17 14:25 [place] % (Auto) 6.7 % (4.5-13.0) 05/14/17 14:25 Eos % (Auto) 4.0 % (0.6-7.6) 05/14/17 14:25 Baso % (Auto) 0.5 % (0.3-1.7) 05/14/17 14:25 Nucleat RBC Rel Count 0.0 % (0.0-0.2) 05/14/17 14:25 Absolute Neuts (auto) 8.42 10^3/uL (1.70-6.50) H 05/14/17 14:25 Absolute Lymphs (auto) 2.02 10^3/uL (1.00-3.00) 05/14/17 14:25 Absolute Monos (auto) 0.79 10^3/uL (0.30-0.80) 05/14/17 14:25 Absolute Eos (auto) 0.47 10^3/uL (0.03-0.40) H 05/14/17 14:25 Absolute Basos (auto) 0.06 10^3/uL (0.02-0.10) 05/14/17 14:25 Absolute Nucleated RBC 0.00 10^3/uL (0-0.01) 05/14/17 14:25 Immature Gran % 0.5 % (0.0-1.1) 05/14/17 14:25 Immature Gran # 0.06 10^3/uL (0.00-0.10) 05/14/17 14:25 PT 14.9 SEC (12.0-15.0) 05/14/17 14:25 INR 1.15 (0.83-1.16) 05/14/17 14:25 APTT 31.6 SEC (23.0-38.0) 05/14/17 14:25 POC Sodium 139 mEq/L (135-145) 05/14/17 14:35 Sodium 138 mEq/L (135-145) 05/14/17 14:25 POC Potassium 3.9 mEq/L (3.3-5.0) 05/14/17 14:35 Potassium 4.2 mEq/L (3.5-5.2) 05/14/17 14:25 POC Chloride 101 mEq/L (97-110) 05/14/17 14:35 Chloride 100 mEq/L (97-110) 05/14/17 14:25 Carbon Dioxide 19 mEq/l (22-31) L 05/14/17 14:25 Anion Gap 19 mEq/L (8-16) H 05/14/17 14:25 POC BUN 19 mg/dL (7-23) 05/14/17 14:35 BUN 17 mg/dL (7-23) 05/14/17 14:25 Creatinine 0.9 mg/dL (0.7-1.3) 05/14/17 14:25 POC Creatinine 0.8 mg/dL (0.7-1.3) 05/14/17 14:35 Estimated GFR > 60 05/14/17 14:25 Glucose 105 mg/dL (70-100) H 05/14/17 14:25 POC Glucose 109 mg/dL (70-100) H 05/14/17 14:35 Calcium 8.9 mg/dL (8.5-10.4) 05/14/17 14:25 Troponin I < 0.012 ng/mL (0.000-0.034) 05/14/17 14:25 Visualized and Interpreted Chest x-ray results: Yes Chest X-Ray results: other (bibasilar opacities) Visualized and Interpreted EKG results: Yes EKG Interpretation: Positive for: normal sinsus rhythm EKG additional interpertation: 1st degree block Assessment & Plan Assessment: Seizure - New onset. Unclear etiology, consider acute CVA. Lytes ok. CO2 a bit low, c/w seizure. Nothing acute on head CT. Stable mild-mod stenosis on CTA. No TpA per [facility] given improvement in left sided weakness (? Samy's paralysis). Discussed with Dr. Swanson in ED and Dr. Baez, Neurology -Start Keppra 500 mg IV BID -seizure precautions, neurochecks, telemetry monitoring -MRI brain with and without in am to evaluate for CVA or enhancing lesions to explain seizure -check echo -cont daily ASA, known h/o A fib- not on anticoagulation given frequent falls -send a1c, TSH -check lipid panel (goal LDL <70- note intolerance of Atorvastatin due to muscle weakness, could try low dose Pravastatin) -permissive hypertension -PT/OT H/O CVA - Cont ASA, consider initiation of Pravastatin as above A fib - paroxsymal, currently in NSR -cont ASA (not on AC due to fall risk) -cont 1/2 dose BB Hypertension - cont beta caitlin at half dose, o/w treat SBP >220 or DBP >120 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 B/L opacities on CXR. No fever or signs of infection -monitor for e/o infection, send am PCT BPH - cont flomax DVT PPLX - Lovenox Code status - discussed with pt and . Pt is DNR. Dispo - inpt, anticipate >48 hrs hospitalization for ongoing evaluation and management of seizure and possible CVA. PT/OT evals, may require SNF / rehab
--- NOTE | 2017-05-14 17:40 | PDMN ---
Medical Necessity Medical necessity: Pt meets IP criteria per MD; est los >2 mn for eval/tx of new onset seizures of unclear etiology; admit to Step-Down ICU for further workup/monitoring, Neuro consult, IV Keppra, med management & therapies; hx CVA , dysphagia, AFIB, SBO secondary to ischemic bowel s/p resection, HTN; per H&P & order 05/14/17
[2017-05-14] MEDS ORDERED: PETROLATUM WHITE LEFTEYE SCH (21:00)
[2017-05-14] MEDS ORDERED: MINERAL OIL LEFTEYE SCH (21:00)
[2017-05-14] MEDS: METOPROLOL TARTRATE 25 MG TAB TUBE SCH (21:07)
[2017-05-14] MEDS: levETIRAcetam 500MG/NACL 100 ML IV SCH (21:07)
[2017-05-14] MEDS: TAMSULOSIN HCL 0.4 MG CAP PO SCH (21:08)
[2017-05-14] MEDS: CARBOXYMETHYLCELLULOSE 1% 0.4 ML DROPERETTE RTEYE SCH (21:08)
[2017-05-14] MEDS: PETROLAT,WHT/MIN OIL/SOD CHL 3.5 GM OPHT.OINT LEFTEYE SCH (21:08)
[2017-05-14] MEDS: ALPRAZolam 0.5 MG TAB TUBE SCH (21:08)
[2017-05-14] MEDS ORDERED: NS 1,000 ML IV SCH (23:45)
[2017-05-15] MEDS: PETROLAT,WHT/MIN OIL/SOD CHL 3.5 GM OPHT.OINT LEFTEYE SCH ×4 (06:30→20:14)
[2017-05-15] MEDS: CARBOXYMETHYLCELLULOSE 1% 0.4 ML DROPERETTE RTEYE SCH ×4 (06:30→20:14)
[2017-05-15] MEDS ORDERED: NON-FORMULARY NEW DRUG (Fluoxetine Hcl [Prozac 40 Mg] 40 MG) TUBE SCH (09:00)
[2017-05-15] MEDS ORDERED: MOXIFLOXACIN HCL RTEYE SCH (09:00)
--- NOTE | 2017-05-15 09:41 | NEUROPROG ---
Assessment: [id number] - Neurology Consult: - CC: Seizure - HPI: Pt witnessed to have first time generalized tonic clonic seizure on 05/14/17. After he awoke he was noted to have left sided weakness which appeared to be improving. He was brought [facility] ER were head CT and CTA head/neck was unremarkable. His aspirin from home dosing was continued and he was started on levetiracetam to prevent seizures. I initially saw the patient on 05/15/17. - PMHx: stroke, afib, right sided weakness from prior procedure for trigeminal neuralgia, ischemic bowel with small bowel resection (has PEG tube), HTN, BPH upper GI bleed 2016 - Home Meds: flomax, prozac, vigamox, ditropan, xanax, lopressor, aspirin - SHx: FHx: son alive - ROS: Pt denied acute fever, total vision loss, active severe chest pain, respiratory failure, total body severe rash, total bowel/bladder incontinence, psychosis, active seizures, or active bleeding - O: VS reviewed General: somnolent Eyes: Fundoscopic exam not able to visualize optic disks CV: Heart RRR, no murmur, no carotid bruit Lungs: Clear to auscultation bilaterally, no rhonchi or rales Neuro: - Mental: . Oriented x person/place but not date or age . concentration appears reduced . speech fluency/comprehension normal . memory appears reduced . fund of knowledge appear intact - Cranial Nerves: . II: no obvious vision problem noted, pt somnolent making pupil testing difficult . III/IV/: EOMI . V: facial sensation intact to LT . VII: right facial weakness from prior surgery for trigeminal neuralgia . VIII: hearing intact to conversation . IX/X: uvula raises symmetrically . XI: SCM 5/5 B/L strength . XII: tongue protrudes midline w/nl strength - Motor: . Tone: normal tone in all 4 extremity . Strength: no obvious lateralizing weakness noted - Reflexes: B/L bic 2/4 - Sensory: all 4 extremity intact to light touch - Coord: MARTI wnl - Gait: deferred - Labs: 05/14/17- CBC WBC 11.82H, Coags wnl, TSH wnl, H1AC 4.3 - Rads: 05/14/17- Head CT: no acute intracranial findings (I personally visualized the images on 05/15/17) 05/14/17- CTA head/neck: no acute findings, moderate basilar stenosis, mild stenosis of some other intracranial arteries, moderate left proximal ICA stenosis 50% - Assessment: 1. Generalized Seizure: Last seizure 05/14/17 (only seizure), likely caused by prior stroke but will get brain MRI w/ and w/o con looking for any new intracranial lesion. - 2. Prior stroke, afib: Pt felt to be an extreme fall risk by family so they elected to use aspirin and not anticoagulate for stroke prevention - 3. 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 I spoke with his and son and they are in agreement with not pursuing a procedure. - Plan: - Agree with Keppra 500 mg bid for seizure prevention - Brain MRI w/ and w/o con to exclude acute stroke or other intracranial lesion given new seizure - Patient not driving so no seizure driving precautions needed - If brain MRI shows no acute changes and patient returns to his baseline he can discharge on Keppra 500 mg bid - F/U in neurology clinic in 1-4 weeks Objective: Vital Signs Temp Pulse Resp BP Pulse Ox 36.5 C 50 L 15 167/57 H 96 05/15/17 09:35 05/15/17 09:35 05/15/17 09:35 05/15/17 09:35 05/15/17 09:35 Laboratory Results 05/15/17 04:30 05/14/17 05/15/17 05/16/17 05:59 05:59 05:59 Intake Total 480 Balance 480 PT 14.9 SEC (12.0-15.0) 05/14/17 14:25 INR 1.15 (0.83-1.16) 05/14/17 14:25 Allergies/Adverse Reactions: atorvastatin [From Lipitor] Allergy (Severe, Verified 05/14/17 15:44) Other-Enter Comments oxycodone [From Percocet] Allergy (Intermediate, Verified 05/14/17 15:44) Other-Enter Comments
--- NOTE | 2017-05-15 09:59 | HOSPPROG ---
Hospitalist Progress Note Assessment/Plan: #Acute seizure: due to prior CVA. Dr. Baez evaluated. Don't think MRI will slubber frame changer, but family wants to proceed to see if new stroke -Keppra BID. Does not drive -BP at goal, <180 #h/o CVA: ASA. Not on statin #A fib: on ASA only with multiple falls. BB #Falls: has 24hr care per that has helped with fall prevention. 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 #BPH: Flomax #HTN: cont BB #Dysphagia: passed swallow, regular diet #DVT ppx: Lovenox #Disp: cont inpatient admission for MRI, PT, neuro checks Subjective: says more responsive and alert today Objective: Vital Signs Temp Pulse Resp BP Pulse Ox 36.5 C 50 L 15 167/57 H 96 05/15/17 09:35 05/15/17 09:35 05/15/17 09:35 05/15/17 09:35 05/15/17 09:35 Laboratory Results 05/15/17 04:30 05/14/17 05/15/17 05/16/17 05:59 05:59 05:59 Intake Total 480 Balance 480 PT 14.9 SEC (12.0-15.0) 05/14/17 14:25 INR 1.15 (0.83-1.16) 05/14/17 14:25 - Time Spent With Patient Time Spent with Patient: greater than 35 minutes Time Spent with Patient: Greater than 35 minutes spent on this patients care, greater than 50% of time spent counseling, educating, and coordinating care regarding the above mentioned plan. - Physical Exam Constitutional: no apparent distress, chronically ill appearing, cachectic Eyes: PERRL Ears, Nose, Mouth, Throat: moist mucous membranes Cardiovascular: regular rate and rhythym, no murmur, rub, or gallop Respiratory: no respiratory distress Gastrointestinal: normoactive bowel sounds, soft, non-tender abdomen Skin: warm Neurologic: CN II-XII Intact, facial droop (right (chronic)), other (expressive aphasia) ICD10 Worksheet Patient Problems: Problems Problem Status Onset Palliative care encounter Acute Left-sided weakness Acute C. difficile diarrhea Acute ~08/06/16 Acute chest pain Acute Dizziness Acute Aphasia Acute SBO (small bowel obstruction) Acute
[2017-05-15] MEDS: levETIRAcetam 500MG/NACL 100 ML IV SCH ×2 (10:06→20:18)
[2017-05-15] MEDS: ASPIRIN 325 MG TAB TUBE SCH (10:07)
[2017-05-15] MEDS: ENOXAPARIN 40 MG/0.4 ML SYR SC SCH (10:07)
[2017-05-15] MEDS: FLUoxetine 20 MG CAP TUBE SCH (10:07)
[2017-05-15] MEDS: METOPROLOL TARTRATE 25 MG TAB TUBE SCH ×2 (10:09→20:13)
[2017-05-15] MEDS: MOXIFLOXACIN HCL RTEYE SCH (10:33)
--- NOTE | 2017-05-15 10:49 | ECHO ---
[email or web address] [address] [address] Main: [phone] Fax: Transthoracic Echocardiogram Name: RAYSHAWN SIMONS MR#: [id number] Study Date: 05/15/2017 Study Time: 09:37 AM Date of : 1930 Age: 86 year(s) Height: 182.9 cm (72 in.) Weight: 68.04 kg (150 lb.) BSA: 1.89 m2 Gender: Male Examination: Echo Indication: Ischemic stroke w/o TPA Image Quality: Contrast: Requested by: Ashley Edwards BP: 167 mmHg/57 mmHg Heart Rate: Rhythm: Indication: Ischemic stroke w/o TPA Procedure Staff Rag Inspector: Caty Chahal JOSIAH Reading Physician: Honey Lewis MD Requesting Provider: Conclusions: Normal size left ventricle. No LV hypertrophy. Normal global systolic LV function. The ejection fraction is estimated to be 65-70 %. No regional wall motion abnormality. Normal size right ventricle. Normal RV function. The left atrium is mildly dilated. Mild mitral valve regurgitation is present. Mild to moderate aortic valve regurgitation. Mild tricuspid regurgitation is present. Compared with 07/2016 estimated PA systolic pressure is now slightly lower Measurements: Chambers Valvular Assessment AV/MV Valvular Assessment TV/PV Normal Normal Normal Name Value Range Name Value Range Name Value Range Ao Haritha (MM): 3.6 cm (2.2 cm-3.7 AV meanP mmHg ( - ) TR Vmax: 2.65 mm/s ( - ) cm) MV E Vmax: 0.57 m/s ( - ) TR PGmax: 28 mmHg ( - ) IVSd (2D): 0.7 cm (0.6 cm-1.1 MV A Vmax: 0.81 m/s ( - ) syst. PAP: 33 mmHg ( - ) cm) MV E/A: 0.70 ( - ) LVDd (2D): 4.3 cm (4.2 cm-5.9 cm) LVDs (2D): 2.8 cm (2.1 cm-4 cm) LVPWd (2D): 0.8 cm (0.6 cm-1 cm) LVEF (MOD4): 75 % (>=55 %) EF Range: 65-70 % Patient: RAYSHAWN SIMONS Study Date: 05/15/2017 Page 1 of 2 09:37 AM Continued Measurements: Chambers Valvular Assessment AV/MV Valvular Assessment TV/PV Name Value Name Value Name Value LADs: 3.5 cm MV E' Septal: 0.05 m/s CVP (est.): 5 mmHg LADs Lon.7 cm MV E/E' Septal: 11.40 LA Area: 23.5 cm2 MV E/E' Lateral: 8.40 Findings: Left Ventricle: Normal size left ventricle. No LV hypertrophy. Normal global systolic LV function. The ejection fraction is estimated to be 65-70 %. No regional wall motion abnormality. Right Ventricle: Normal size right ventricle. Normal RV function. Left Atrium: The left atrium is mildly dilated. Right Atrium: The right atrium is normal in size. Mitral Valve: Mild mitral annular calcification. Mild mitral valve regurgitation is present. Aortic Valve: Minimal aortic cusp calcification is noted. Mild to moderate aortic valve regurgitation. Tricuspid Valve: The tricuspid valve is normal in appearance and function. Mild tricuspid regurgitation is present. The pulmonary artery pressure is normal. Pulmonic Valve: The pulmonic valve is normal in appearance and function. Aorta: The aorta is normal. Pericardium: No pericardial effusion. (No Signature Object) Patient: RAYSHAWN SIMONS Study Date: 05/15/2017 Page 2 of 2 09:37 AM [id number]
--- NOTE | 2017-05-15 12:43 | SOAPPROG ---
SOAP Progress Note Assessment/Plan: Assessment:Plan: 1) Peg fell out - called for PEG falling out,. This is a replacement PEG. Original PEG placed in 2011. I replaced it with a 20 tajik balloon PEG replacement kit. I suctioned gastric contents, PEG OK to use will sign off thank you Subjective: cc- PEG fell out this will be the third replacement PEG since initially PEG in 2012 according to Objective: Vital Signs Temp Pulse Resp BP Pulse Ox 36.6 C 54 L 16 149/77 H 96 05/15/17 11:31 05/15/17 11:31 05/15/17 11:31 05/15/17 11:31 05/15/17 09:35 Laboratory Results 05/15/17 04:30 05/14/17 05/15/17 05/16/17 05:59 05:59 05:59 Intake Total 480 Balance 480 PT 14.9 SEC (12.0-15.0) 05/14/17 14:25 INR 1.15 (0.83-1.16) 05/14/17 14:25 alert +BS, soft NT, PEG site looks fine, a small amount of dried heme present S1S2 clear anteriorly ICD10 Worksheet Patient Problems: Problems Problem Status Onset Left-sided weakness Acute Acute chest pain Acute Aphasia Acute C. difficile diarrhea Acute ~08/06/16 Dizziness Acute Palliative care encounter Acute SBO (small bowel obstruction) Acute
--- NOTE | 2017-05-15 12:43 | ASMTCASEMG ---
Living Arrangements What is your living Answers: With Spouse arrangement? Who do you live with? Type Of Residence What kind of residence do Answers: Apartment you live in? Discharge Plan Comments Coordination Status Comments Notes: Patient is an 86yo male with hx of CVA and afib, who has recently been d/c'ed from hospice care. Patient was witnessed having a tonic/clonic seizure at home, new onset. Possible CVA as well. Pt/OT/FAMILY LAW MEDIATOR/Inpatient rehab ordered. D/C plan TBD. CM will follow. Date Signed: 05/15/2017 12:43 PM Electronically Signed By:Jovita Mojica LCSW
--- NOTE | 2017-05-15 17:04 | GCON ---
[f rep st] CONSULTATION CRITICAL CARE CONSULTATION DATE OF CONSULTATION: 05/15/2017 REASON FOR CONSULTATION: Intensive care unit evaluation and management following a generalized seizu re. HISTORY: The patient is a very pleasant 86-year-old with a previous history of a CVA. He has never had a seizure before but had a generalized, witnessed tonic-clonic seizure today at home. He was bro ught to the emergency department. He had some residual weakness of his left upper and lower extremit ies. 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 He moves slow ly and is a fall risk, with some memory problems. He does not have focal neurologic deficits. He do es have 24-hour nursing care at home. If this full S. Approximately 6 months ago, he was admitted to the hospital for ischemic bowel and small bowel obstru ction. A PEG tube was placed at that time. He continues to eat thickened liquids but gets fluids th rough the PEG tube. PAST MEDICAL HISTORY: Remarkable for chronic atrial fibrillation. He is not anticoagulated secondar y to his fall risk. There is a history of systemic hypertension and previous CVA as outlined above. PAST SURGICAL HISTORY: Include a small bowel resection and right hip surgery. SOCIAL HISTORY: The patient is , with a very supportive . Alcohol and tobacco are negati ve. He worked for [employer] on the [facility] in the past and has lived in [place] for the last 7 years. One of his 2 children are in this area. FAMILY HISTORY: Noncontributory. REVIEW OF SYSTEMS: Difficult to obtain; otherwise, negative x10 except as outlined above. PHYSICAL EXAMINATION: GENERAL: A pleasant elderly gentleman who is quite thin. He has an obvious f acial droop. He is sitting up in a chair and is not in any distress at this time. VITAL SIGNS: Blo od pressure is approximately 170/70. Heart rate 54 with sinus rhythm on the monitor. Respiratory ra te is 16. On room air, saturations are 96%. HEENT: Unremarkable for lymphadenopathy or thyromegaly . There is no jugular venous distention. CHEST: Clear anteriorly and posteriorly. Breath sounds a re diminished at the bases. There are no rales or rhonchi. HEART: Bradycardic. There is a systoli c murmur, no gallop. ABDOMEN: Soft and nontender. His PEG tube, which fell out earlier, has been r eplaced. EXTREMITIES: Remarkable for trace plus edema. SKIN: Without rash or lesions. GENITOURIN MELE: There is no Owusu catheter. NEUROLOGIC: Examination is grossly nonfocal. He moves slowly, mo ves all extremities to command, is oriented and responds appropriately to questions, although a littl e slowly with some difficulty. DATA REVIEWED: CT scan of the head on admission showed evidence of atrophy and chronic white matter disease. No obvious focal areas of previous stroke were identified. Some maxillary opacification on the right was present. This appeared chronic. Chest x-ray: Clear, normal cardiac silhouette. No evidence of pneumonia, heart failure. White blood cell count is 11,800, hematocrit 46, platelets 184,000. PT and PTT were normal. Sodium is 140, with a potassium of 3.6, BUN of 14, with a creatinine of 0.7. Glucose is 87. Calcium is 8.5 . A lipid panel was normal. TSH is 3.58. ASSESSMENT: 1. Seizure. This is his initial seizure and presumably is secondary to parenchymal abnormalities se condary to his previous stroke or to white matter disease. He has been loaded with Keppra and contin ues on this. Neurology has seen the patient. An MRI has been ordered. 2. Metabolic: No acute issues identified. 3. History of fall risk, failure to thrive. He has 24/7 care at home. He has a very supportive wif e. 4. History of swallowing dysfunction and a PEG tube. He is able to eat with a thickened diet. Hydr ation is maintained through the PEG tube. Replacement of his PEG tube by Gastroenterology is appreci ated. 5. History of other medical problems as outlined above, including hypertension, depression, atrial f ibrillation, etc. RECOMMENDATIONS: The patient will be monitored in the intensive care unit on step-down status. MRI will be awaited. Laboratory will be followed. His usual outpatient regimen will be maintained, incl uding allowing p.o. intake, using his PEG tube for fluids and medications, etc. Further plans and recommendations will be made based on his progress over the next 12-24 hours. /[id number]/MODL
[2017-05-15] MEDS: ALPRAZolam 0.5 MG TAB TUBE SCH (20:12)
[2017-05-15] MEDS: TAMSULOSIN HCL 0.4 MG CAP PO SCH (20:14)
[2017-05-16] MEDS: CARBOXYMETHYLCELLULOSE 1% 0.4 ML DROPERETTE RTEYE SCH ×3 (06:00→17:04)
[2017-05-16] MEDS: PETROLAT,WHT/MIN OIL/SOD CHL 3.5 GM OPHT.OINT LEFTEYE SCH ×3 (06:00→17:04)
[2017-05-16 06:10] LABS: PLATELET COUNT 160 10^3/uL (150-400)
[2017-05-16] MEDS ORDERED: levETIRAcetam 500 MG TAB PO SCH (09:00)
[2017-05-16] MEDS: ASPIRIN 325 MG TAB TUBE SCH (09:05)
[2017-05-16] MEDS: METOPROLOL TARTRATE 25 MG TAB TUBE SCH (09:05)
[2017-05-16] MEDS: FLUoxetine 20 MG CAP TUBE SCH (09:05)
[2017-05-16] MEDS: ENOXAPARIN 40 MG/0.4 ML SYR SC SCH (09:10)
[2017-05-16] MEDS: MOXIFLOXACIN HCL RTEYE SCH (09:10)
[2017-05-16] MEDS ORDERED: OXYBUTYNIN 5 MG EXT REL TAB PO SCH (10:00)
--- NOTE | 2017-05-16 10:00 | NEUROPROG ---
Assessment: [id number] - Neurology Consult: - CC: Seizure - Narrative Summary: Pt witnessed to have first time generalized tonic clonic seizure on 05/14/17. After he awoke he was noted to have left sided weakness which appeared to be improving. He was brought [facility] ER were head CT and CTA head/neck was unremarkable. His aspirin from home dosing was continued and he was started on levetiracetam to prevent seizures. I initially saw the patient on 05/15/17. - HPI: F/U 05/16/17. No events overnight. Brain MRI still pending. Pt sitting up in chair today and now can say location but still not date with still having confusion. No events overnight. - PMHx: stroke, afib, right sided weakness from prior procedure for trigeminal neuralgia, ischemic bowel with small bowel resection (has PEG tube), HTN, BPH upper GI bleed 2016 - Home Meds: flomax, prozac, vigamox, ditropan, xanax, lopressor, aspirin - SHx: FHx: son alive - Labs: 05/14/17- CBC WBC 11.82H, Coags wnl, TSH wnl, H1AC 4.3 - Rads: 05/14/17- Head CT: no acute intracranial findings (I personally visualized the images on 05/15/17) 05/14/17- CTA head/neck: no acute findings, moderate basilar stenosis, mild stenosis of some other intracranial arteries, moderate left proximal ICA stenosis 50% - Assessment: 1. Generalized Seizure: Last seizure 05/14/17 (only seizure), likely caused by prior stroke but will get brain MRI w/ and w/o con looking for any new intracranial lesion. - 2. Prior stroke, afib: Pt felt to be an extreme fall risk by family so they elected to use aspirin and not anticoagulate for stroke prevention - 3. 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 I spoke with his and son and they are in agreement with not pursuing a procedure. - Plan: - Agree with Keppra 500 mg bid for seizure prevention - Brain MRI w/ and w/o con to exclude acute stroke or other intracranial lesion given new seizure - Patient not driving so no seizure driving precautions needed - If brain MRI shows no acute changes and patient returns to his baseline he can discharge on Keppra 500 mg bid - F/U in neurology clinic in 1-4 weeks - 35 min spent with patient and his , majority of time spent counseling on seizure and likely prolonged confusion from encephalopathy from prior stroke, advanced age, and seizure. Objective: Vital Signs Temp Pulse Resp BP Pulse Ox 36.7 C 52 L 12 154/63 H 94 05/16/17 08:00 05/16/17 08:00 05/16/17 08:00 05/16/17 08:00 05/16/17 08:00 Laboratory Results 05/16/17 06:00 05/16/17 06:00 05/15/17 05/16/17 05/17/17 05:59 05:59 05:59 Intake Total 480 1010 Output Total 50 Balance 480 960 PT 14.9 SEC (12.0-15.0) 05/14/17 14:25 INR 1.15 (0.83-1.16) 05/14/17 14:25 Allergies/Adverse Reactions: atorvastatin [From Lipitor] Allergy (Severe, Verified 05/14/17 15:44) Other-Enter Comments oxycodone [From Percocet] Allergy (Intermediate, Verified 05/14/17 15:44) Other-Enter Comments
--- NOTE | 2017-05-16 10:18 | HOSPPROG ---
Hospitalist Progress Note Assessment/Plan: #Acute seizure: due to prior CVA. Dr. Baez evaluated. -Keppra BID. Does not drive -BP at goal, <180 -MRI with no acute CVA. Cont PT/OT #h/o CVA: ASA. Not on statin #A fib: on ASA only with multiple falls. BB #Falls: has 24hr care per that has helped with fall prevention. 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 Burkett #HTN: cont BB #Dysphagia: passed swallow, regular diet #DVT ppx: Lovenox #Disp: cont inpatient admission for MRI, PT, neuro checks. Stable for med- surgery Subjective: per , mental status seems worse today Objective: Vital Signs Temp Pulse Resp BP Pulse Ox 36.7 C 52 L 12 154/63 H 94 05/16/17 08:00 05/16/17 08:00 05/16/17 08:00 05/16/17 08:00 05/16/17 08:00 Laboratory Results 05/16/17 06:00 05/16/17 06:00 05/15/17 05/16/17 05/17/17 05:59 05:59 05:59 Intake Total 480 1010 Output Total 50 Balance 480 960 PT 14.9 SEC (12.0-15.0) 05/14/17 14:25 INR 1.15 (0.83-1.16) 05/14/17 14:25 - Physical Exam Constitutional: other (drooling with eating) Eyes: PERRL Ears, Nose, Mouth, Throat: moist mucous membranes Cardiovascular: regular rate and rhythym Respiratory: no respiratory distress Gastrointestinal: normoactive bowel sounds, other (PEG in place) Genitourinary: no bladder fullness Neurologic: CN II-XII Intact, facial droop (right) ICD10 Worksheet Patient Problems: Problems Problem Status Onset Left-sided weakness Acute Acute chest pain Acute Aphasia Acute C. difficile diarrhea Acute ~08/06/16 Dizziness Acute Palliative care encounter Acute SBO (small bowel obstruction) Acute
[2017-05-16] MEDS ORDERED: GADOBUTROL 10 ML VIAL IVP ONE (11:16)
[2017-05-16 12:07] VITALS: TEMP 97.9; O2SAT 97
[2017-05-16 16:11] VITALS: BP 176/54; PULSE 54; RESP 14
--- NOTE | 2017-05-16 17:54 | GDS ---
[f rep st] DISCHARGE SUMMARY DISCHARGE DIAGNOSES: 1. Generalized tonoclonic seizure. 2. History of a prior stroke. 3. Atrial fibrillation. 4. Right-sided weakness from prior procedure for trigeminal neuralgia. 5. History of ischemic bowel with small bowel resection. Has a percutaneous endoscopic gastrostomy tube. 6. Hypertension. 7. Benign prostatic hypertrophy. 8. Upper gastrointestinal bleed in 2017. HISTORY OF PRESENT ILLNESS: An 86-year-old male with history of prior stroke, chronic right-sided we akness secondary to procedure related to trigeminal neuralgia, who was brought in by EMS after witnes sed tonoclonic seizure at home. He was last admitted in October 2016 for small bowel obstruction d ue to ischemic bowel, requiring resection. This was complicated by an upper GI bleed and PEG tube pl acement. He spent 2 weeks in rehab and then was sent home on hospice. He was recently discharged fr hospice care. He has chronic right-sided facial droop due to trigeminal nerve injury during a treatment for neuralg ia. He had no other residual neuro deficits from his prior stroke. His and son were at bedside , stating that he was at a very high fall risk and can be very impulsive, thus they have hired 24/7 c are at home. He has never had any seizures. He had a meeting with his family and a substation manager the [facility] of admission and was mentating normally. In ER, he presented as a Stroke Alert, was evaluated by [facility]. He had left upper and lo wer weakness, which was improved. Thus, he was not a candidate for tPA and was considered possibly d ue to Samy's paralysis. HOSPITAL COURSE BY PROBLEM: 1. New seizure: Suspect this is due to prior stroke. CTA and MRI were negative for acute finding. He was started on Keppra and will continue this at 500 mg twice daily. He was then evaluated by Dr. Baez with Neurology. Can follow up in 2-4 weeks. 2. Prior stroke: Has history of atrial fibrillation. He was at extreme fall risk by family, so nurys cted to use aspirin and not anticoagulation for stroke prevention. 3. Falls: Per family, he is very impulsive. They have hired 24/7 care to prevent falls. He has ascencio d only 1 recently. 4. BPH: Flomax. 5. Right-sided weakness/facial droop: This is secondary to prior procedure for trigeminal neuralgia . 6. History of ischemic bowel: 2017, with small-bowel resection, now with a PEG tube. Gets free diane er boluses daily. 7. Incontinence: Oxybutynin. 8. Dislodged PEG tube: This fell out 2nd day of admission. This was replaced by GI bedside without issue. 9. Hypertension. Continue beta caitlin. 10. Dysphagia: Passed a swallow evaluation. 11. History of CVA: Aspirin. He is not on a statin. DISPOSITION: Patient is stable for discharge home with and 03/09 care. FOLLOWUP INSTRUCTIONS: Dr. Baez with Neurology in 2-4 weeks. NEW MEDICATIONS: Keppra 500 mg twice daily. /[id number]/MODL
[2017-05-17] MEDS ORDERED: OXYBUTYNIN 5 MG EXT REL TAB PO SCH (21:00)
== END 2017-05-16 17:45 | disposition home or self-care (01) | DRG 57 ==
LOC: EDUNIT# → F2N 18:19
PROVIDERS: ADMIT Hospitalist; ATTEND Hospitalist
PROC: 0DH67UZ Insertion of Feeding Device into Stomach, Via Natural or Artificial Opening (ICD-10-PCS; principal; 2017-05-15)
DX: I69.898 Other sequelae of other cerebrovascular disease (principal); K94.23 Gastrostomy malfunction; G40.409 Other generalized epilepsy and epileptic syndromes, not intractable, without status epilepticus; I48.0 Paroxysmal atrial fibrillation; R29.810 Facial weakness; N40.1 Benign prostatic hyperplasia with lower urinary tract symptoms; I10 Essential (primary) hypertension; R13.10 Dysphagia, unspecified; R32 Unspecified urinary incontinence
CPT/HCPCS: 82947-QW; 92610-GN; 97110-GP; 97116-GP; 97161-GP; 97166-GO; A9585; B4087; G8978-GP-CJ; G8979-GP-CI; G8987-GO-CL; G8988-GO-CK; G8996-GN-CI; G8997-GN-CI; G8998-GN-CI; J1650; J1953; Q9967

== ENCOUNTER 2017-07-17 15:41 | Emergency (ER) | payer OTHER, MEDICARE ==
[2017-07-17 15:48] VITALS: BP 176/62
--- NOTE | 2017-07-17 16:03 | EDPHY ---
H & P Time Seen by Provider: 07/17/17 15:55 HPI/ROS: CHIEF COMPLAINT: Peg tube plug dysfunction HISTORY OF PRESENT ILLNESS: 86-year-old male with multiple medical comorbidities including CVA history, peg tube arrives via private vehicle with family concerned that the small male component of the plug at the end of the PEG tube is about to tear off. PEG tube hydration/feedings are normal and tube is patent. PHYSICAL EXAM (Prior to examination, patient consented to physical exam, hands were washed and my usual and customary physical exam procedures followed) 1) GENERAL: Well-developed, well-nourished, alert and oriented. Appears to be in no acute distress. 2) HEAD: Normocephalic 3) HEENT: sclera anicteric 4) LUNGS: Breathing comfortably. 5) ABDOMEN: Soft no guarding no rebound. Peg tube in place. Upon examination of the male component plug at the tip of this it is partially torn. The PEG tube itself is patent. Smoking Status: Never smoked Constitutional: Initial Vital Signs Temperature (C) 36.3 C 07/17/17 15:44 Heart Rate 50 L 07/17/17 15:44 Respiratory Rate 18 07/17/17 15:44 Blood Pressure 176/62 H 07/17/17 15:44 O2 Sat (%) 95 07/17/17 15:44 O2 Delivery Mode Room Air Allergies/Adverse Reactions: atorvastatin [From Lipitor] Allergy (Severe, Verified 07/17/17 15:43) Other-Enter Comments oxycodone [From Percocet] Allergy (Intermediate, Verified 07/17/17 15:43) Other-Enter Comments Home Medications: Medication Instructions Recorded Tamsulosin HCl [Flomax 0.4 MG (*)] 0.4 mg TUBE HS 12/14/14 Carboxymethylcellulose 1% [Refresh 1 each RTEYE QID 05/26/16 Celluvisc (*)] Fluoxetine HCl [Prozac 40 mg] 40 mg TUBE DAILY 05/26/16 Mineral Oil/Petrolatum,White 3.5 gm LEFTEYE QID 05/26/16 [Genteal Pm Ointment] Moxifloxacin HCl [Vigamox] 1 drops RTEYE DAILY 05/26/16 Oxybutynin Chloride [Ditropan Xl] 10 mg TUBE HS 05/26/16 Acetaminophen [Tylenol 325mg (*)] 650 mg PO Q4 PRN #0 tab 05/27/16 Aspirin [Aspirin 325 mg (*)] 325 mg PO DAILY #30 tab 05/27/16 ALPRAZolam [Xanax 0.5 MG (*)] 0.25 mg TUBE HS 05/14/17 Metoprolol Tartrate [Lopressor 25 25 mg PO BID 05/14/17 mg (*)] Oxybutynin Chloride Xl [Ditropan 5 mg PO DAILY 05/14/17 Xl 5mg (*)] levETIRAcetam [Keppra 500 mg (*)] 500 mg PO BID #60 tab 05/16/17 MDM/Departure - MDM ED Course/Re-evaluation: Nursing staff has changed the male component of the plug without changing out the entire peg tube. Nursing staff has confirmed the patent status of the tube. Patient family instructed on proper usage and trouble shooting. Family feels comfortable being discharged. I saw this patient independently based on established practice protocols. Care of patient under supervision of secondary supervising physician Dr Leal . - Depart Disposition: Home, Routine, Self-Care Clinical Impression: PEG (percutaneous endoscopic gastrostomy) adjustment/replacement/removal Condition: Good Instructions: How to Use and Care for Your PEG Tube (ED) Additional Instructions: Return to the ER if your feeding tube does not work Referrals: John Sims MD [Primary Care Provider] - 1-2 days without fail
== END 2017-07-17 16:10 | disposition home or self-care (01) ==
DX: K94.23 Gastrostomy malfunction (principal); Z79.82 Long term (current) use of aspirin

== ENCOUNTER 2017-12-16 09:51 | Day surgery (SDC) | payer OTHER, MEDICARE ==
[2017-12-16] MEDS ORDERED: LIDOCAINE 1% 300 MG/30 ML SDV SC ONE (10:18)
--- NOTE | 2017-12-16 11:11 | PDPROPOC ---
Sedation Plan of Care Sedation Plan of Care: vital signs stable, mental status noted, patient educated of risks, benefits, alternatives, patient can tolerate sedation ASA Classification: ASA 2 Planned drugs: fentanyl, midazolam Mallampati Score: Class 2 Mallampati Reference Image: Patient passed 3-3-2 rule?: Yes
--- NOTE | 2017-12-16 11:11 | PDHPUP ---
History & Physical Update H&P update statement: This history and physical update is based on an assessment of the patient which was completed after admission or registration (within 24 hours), but prior to the surgery/procedure. H&P update: H&P reviewed & patient examined, no change in patient's condition since H&P completed
[2017-12-16] MEDS ORDERED: MIDAZOLAM 2 MG/2 ML VIAL ONE (11:14)
[2017-12-16] MEDS ORDERED: fentaNYL 100 MCG/2 ML INJ ONE (11:14)
--- NOTE | 2017-12-16 12:07 | CPIP ---
DATE OF PROCEDURE: 12/16/2017 PROCEDURE: LINQ explant. COMPLICATIONS: None. INDICATIONS: LINQ device is at end of battery. DESCRIPTION OF PROCEDURE: N.p.o. status was confirmed and informed consent was obtained. Time-out p erformed. The patient received adequate conscious sedation with Versed and fentanyl IV. 1% lidocain e was used for local anesthesia of the left parasternal region. A small incision was made over the LINQ device. The LINQ was explanted and the incision closed with 2 theron. Sterile dressing applied. CONCLUSION: Successful LINQ explant. Serial #[id number] Follow up in our office in 1 week for staple removal. /[id number]/MODL
== END 2017-12-16 12:55 | disposition home or self-care (01) ==
LOC: FCATH 09:51
PROVIDERS: ATTEND Internal Medicine Cardiovascular Disease
PROC: 0JPT02Z Removal of Monitoring Device from Trunk Subcutaneous Tissue and Fascia, Open Approach (ICD-10-PCS; principal; 2017-12-16)
DX: Z45.09 Encounter for adjustment and management of other cardiac device (principal); Z66 Do not resuscitate
CPT/HCPCS: J2250; J3010

== ENCOUNTER 2018-06-16 17:21 | Emergency (ER) | payer OTHER, MEDICARE ==
--- NOTE | 2018-06-16 18:14 | EDPHY ---
H & P Time Seen by Provider: 06/16/18 17:56 HPI/ROS: CHIEF COMPLAINT: Cough for 3 days HISTORY OF PRESENT ILLNESS: Patient has a feeding tube and is able to eat food and thickened liquids but all other liquids go through his feeding tube. No previous history of aspiration. He has had a cough for 3 days but does not feel short of breath. This is associated with some intermittent pain just below his left nipple which is only present when he coughs, and started today after he had been coughing for 2 days already. Symptoms moderate. He went to urgent care and was referred here. Denies leg swelling or fever or chills or vomiting or diarrhea. Symptoms not better or worse with anything. REVIEW OF SYSTEMS: Eye: no change in vision ENT: no sore throat Cardiac: no palpitations or syncope Pulmonary: HPI Abdomen: no vomiting, diarrhea, abdominal pain Musculoskeletal: no leg pain or swelling Skin: no rash Neuro: Persistent left-sided weakness after previous stroke Constitutional: no fever : no urinary symptoms A comprehensive 10 point review of systems is otherwise negative aside from elements mentioned in the history of present illness. PAST MEDICAL HISTORY: Includes previous stroke, hypertension, reflux, dysphagia with feeding tube Social history: Primary care Dr. Nikia Boston General Appearance: Alert and conversant, cooperative. Eyes: No scleral icterus. ENT, Mouth: Normal mucous membranes. Respiratory: Breath sounds decreased at the bases bilaterally, not tachypneic, room air saturation 93%, afebrile. Cardiovascular: Regular rate and rhythm. Gastrointestinal: Abdomen is soft and non tender. Neurological: Left-sided weakness, alert and follows commands and answers questions appropriately. Skin: Warm and dry, no rashes. Musculoskeletal: No peripheral edema. No calf tenderness. Psychiatric: Not agitated. Emergency Department course/MDM: CBC chemistry EKG and chest x-ray. 193: Results discussed, empiric treatment for aspiration with elevated white blood cell count despite negative chest x-ray discussed and consented. Offered admission but patient and would prefer to be treated at home which I think is still reasonable given that he has 24 hr care there and he has a normal saturation here and is afebrile. Augmentin chosen. Left-sided chest discomfort likely to be due to cough and not acute coronary syndrome or pulmonary embolism. 1953: Discussed with Veda RODNEY for Dr. Boston, recommended follow-up tomorrow. Discussed hypertension with the . I do not feel he has clinical evidence of hypertensive emergency, recommended rechecking in the office after he is treated for this current illness. Smoking Status: Never smoked Constitutional: Initial Vital Signs Temperature (C) 35.9 C L 06/16/18 17:25 Heart Rate 60 06/16/18 17:25 Respiratory Rate 20 06/16/18 17:25 Blood Pressure 201/69 H 06/16/18 17:25 O2 Sat (%) 93 06/16/18 17:25 O2 Delivery Mode Nasal Cannula O2 (L/minute) 2 Allergies/Adverse Reactions: atorvastatin [From Lipitor] Allergy (Severe, Verified 06/16/18 17:25) Other-Enter Comments oxycodone [From Percocet] Allergy (Intermediate, Verified 06/16/18 17:25) Other-Enter Comments Home Medications: Medication Instructions Recorded Tamsulosin HCl [Flomax 0.4 MG (*)] 0.4 mg TUBE HS 12/14/14 Carboxymethylcellulose 1% [Refresh 1 each RTEYE QID 05/26/16 Celluvisc (*)] Fluoxetine HCl [Prozac 40 mg] 40 mg TUBE DAILY 05/26/16 Mineral Oil/Petrolatum,White 3.5 gm LEFTEYE QID 05/26/16 [Genteal Pm Ointment] Moxifloxacin HCl [Vigamox] 1 drops RTEYE DAILY 05/26/16 Oxybutynin Chloride [Ditropan Xl] 10 mg TUBE HS 05/26/16 Acetaminophen [Tylenol 325mg (*)] 650 mg PO Q4 PRN #0 tab 05/27/16 Aspirin [Aspirin 325 mg (*)] 325 mg PO DAILY #30 tab 05/27/16 ALPRAZolam [Xanax 0.5 MG (*)] 0.25 mg TUBE HS 05/14/17 Metoprolol Tartrate [Lopressor 25 25 mg PO BID 05/14/17 mg (*)] Oxybutynin Chloride Xl [Ditropan 5 mg PO DAILY 05/14/17 Xl 5mg (*)] Gabapentin 09/25/17 Amoxicillin/Clavulanate Pot 875 mg PO BID #20 tab 06/16/18 [Augmentin 875 mg tab] Medical Decision Making - Diagnostics EKG Interpretation: 12-lead EKG interpreted by me; official reading is in computer system. My interpretation is sinus rhythm with LVH and no ischemic changes. Imaging Results: Imaging Impressions Chest X-Ray 06/16/18 18:12 Impression: Stable negative chest. Imaging: I viewed and interpreted images myself - Data Points Laboratory Results: Laboratory Results 06/16/18 18:40 06/16/18 18:40 06/16/18 06/16/18 18:40 18:40 WBC 13.95 10^3/uL H 10^3/uL (3.80-9.50) RBC 4.48 10^6/uL 10^6/uL (4.40-6.38) Hgb 15.2 g/dL g/dL (13.7-17.5) Hct 43.1 % % (40.0-51.0) MCV 96.2 fL fL (81.5-99.8) MCH 33.9 pg pg (27.9-34.1) MCHC 35.3 g/dL g/dL (32.4-36.7) RDW 15.0 % % (11.5-15.2) Plt Count 153 10^3/uL 10^3/uL (150-400) MPV 10.8 fL fL (8.7-11.7) Neut % (Auto) 71.1 % % (39.3-74.2) Lymph % (Auto) 9.7 % L % (15.0-45.0) [place] % (Auto) 9.7 % % (4.5-13.0) Eos % (Auto) 8.7 % H % (0.6-7.6) Baso % (Auto) 0.4 % % (0.3-1.7) Nucleat RBC Rel Count 0.0 % % (0.0-0.2) Absolute Neuts (auto) 9.90 10^3/uL H 10^3/uL (1.70-6.50) Absolute Lymphs (auto) 1.36 10^3/uL 10^3/uL (1.00-3.00) Absolute Monos (auto) 1.36 10^3/uL H 10^3/uL (0.30-0.80) Absolute Eos (auto) 1.22 10^3/uL H 10^3/uL (0.03-0.40) Absolute Basos (auto) 0.05 10^3/uL 10^3/uL (0.02-0.10) Absolute Nucleated RBC 0.00 10^3/uL 10^3/uL (0-0.01) Immature Gran % 0.4 % % (0.0-1.1) Immature Gran # 0.06 10^3/uL 10^3/uL (0.00-0.10) Sodium 133 mEq/L L mEq/L (135-145) Potassium 4.2 mEq/L mEq/L (3.5-5.2) Chloride 100 mEq/L mEq/L (97-110) Carbon Dioxide 28 mEq/l mEq/l (22-31) Anion Gap 5 mEq/L L mEq/L (6-14) BUN 22 mg/dL mg/dL (7-23) Creatinine 0.9 mg/dL mg/dL (0.7-1.3) Estimated GFR > 60 Glucose 94 mg/dL mg/dL (70-100) Calcium 8.7 mg/dL mg/dL (8.5-10.4) Departure - Departure Disposition: Home, Routine, Self-Care Clinical Impression: Aspiration pneumonia Qualifiers: Aspiration pneumonia type: unspecified Laterality: unspecified laterality Lung location: unspecified part of lung Qualified Code(s): J69.0 - Pneumonitis due to inhalation of food and vomit Condition: Good Instructions: Aspiration Pneumonia (DC) Referrals: Nikia Boston MD [Primary Care Provider] - As per Instructions Prescriptions: Amoxicillin/Clavulanate Pot [Augmentin 875 mg tab] 875 mg PO BID #20 tab
[2018-06-16 18:52] LABS: PLATELET COUNT 153 10^3/uL (150-400)
--- NOTE | 2018-06-16 19:12 | CPEKG ---
Test Reason : OPEN Blood Pressure : / mmHG Vent. Rate : 056 BPM Atrial Rate : 056 BPM P-R Int : 257 ms QRS Dur : 092 ms QT Int : 455 ms P-R-T Axes : 064 036 032 degrees QTc Int : 440 ms Sinus rhythm Prolonged [place] interval Left ventricular hypertrophy Confirmed by Olman Rocha ([id number]) on 06/16/2018 7:12:09 PM Referred By: OLMAN ROCHA Confirmed By:Olman Rocha
[2018-06-16] MEDS ORDERED: AMOXICILLIN/CLAVULANATE POT 875/125 MG TAB PO ONE (19:40)
[2018-06-16 20:03] VITALS: BP 204/75
== END 2018-06-16 19:45 | disposition home or self-care (01) ==
DX: J69.0 Pneumonitis due to inhalation of food and vomit (principal); R05 Cough; I10 Essential (primary) hypertension

== ENCOUNTER 2018-06-20 21:11 | Emergency (ER) | payer OTHER, MEDICARE ==
--- NOTE | 2018-06-20 21:51 | EDPHY ---
HPI/HX/ROS/PE/MDM Narrative: CHIEF COMPLAINT: Headache HPI: This patient is an 87-year-old male with past medical history including prior CVA in 2011 with resultant left-sided deficits, hypertension, GERD. He arrives today with his complaining of a gradual onset headache around 12:00 today. The pain is primarily on the right, behind his ear. He denies any recent falls. They deny any new neurologic deficits. No chest pain, shortness of breath, fever , nausea, vomiting, dysuria, or other associated symptoms. REVIEW OF SYSTEMS: A comprehensive 10 system review of systems is otherwise negative aside from elements mentioned in the history of present illness and medical decision making. PMH: CVA 10/2011 with resultant left-sided deficits. Hypertension. GERD. Dysphagia. History of SBO s/p resection. SOCIAL HISTORY: . at bedside. Retired. Lives in [place]. PHYSICAL EXAM: General:Patient is alert, in no acute distress. ENT:Eyes are normal to inspection. ENT inspection normal. Neck: Normal inspection. Full range of motion. Respiratory:No respiratory distress. Breath sounds normal bilaterally. Cardiovascular: Regular rate and rhythm. Strong peripheral pulses. Normal cap refill. Abdomen:The abdomen is nontender to palpation. There are no peritoneal signs. There are normal bowel sounds. Back: Normal to inspection. No tenderness to palpation. Skin: Normal color. No rash. Warm and dry. Extremities: Normal appearance. Full range of motion. Neuro: Oriented x3. Left-sided facial droop, asymmetric eyelid opening, deficits at baseline for patient per at bedside. ED Course: 87 y/o male presents with right-sided headache onset around 12:00 today. On exam , patient exhibits chronic neurologic deficits from prior CVA including left facial droop, asymmetric eyelid opening. There is no rash over the area of the patient's pain. The ear is normal in appearance. Plan for CT head. Plan for EKG , labs including CBC, chemistries. Plan to administer 2mg IV morphine for pain relief. EKG was ordered and interpreted by myself. Please see [employer] system for official reading. 22:[address] Benavides, radiologist. CT head is negative for acute intracranial findings. See radiologist report for details of chronic findings. Patient noted to have continually elevated blood pressure. Review of past records indicates that BP was at same level last visit. I gave him oral dose of metoprolol here with return of BP to what appears to be baseline. Discussed imaging results with the patient and his . They are relieved that there is no evidence of acute intracranial processes. Discussed admission vs. outpatient followup. The patient and his prefer to be discharged home. Plan to discharge in good condition. Follow up and return precautions discussed. The patient is comfortable with this plan. - Data Points Imaging Results: Imaging Impressions Head CT 06/20/18 21:27 Impression: 1. No acute intracranial findings. 2. Diffuse cerebral atrophy with periventricular and subcortical low attenuation consistent with chronic microvascular ischemic gliosis. 3. 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 Findings discussed with Landen Harmon MD 06/20/2018 at 22:07. Imaging: Discussed imaging studies w/ call center professional Radiologist Laboratory Results: Laboratory Results 06/20/18 21:59 06/20/18 21:30 06/20/18 06/20/18 06/20/18 21:59 21:35 21:30 WBC 14.58 10^3/uL H 10^3/uL (3.80-9.50) RBC 4.28 10^6/uL L 10^6/uL (4.40-6.38) Hgb 14.2 g/dL g/dL (13.7-17.5) POC Hgb 15.3 gm/dL gm/dL (13.7-17.5) Hct 40.7 % % (40.0-51.0) POC Hct 45 % % (40-51) MCV 95.1 fL fL (81.5-99.8) MCH 33.2 pg pg (27.9-34.1) MCHC 34.9 g/dL g/dL (32.4-36.7) RDW 14.7 % % (11.5-15.2) Plt Count 167 10^3/uL 10^3/uL (150-400) MPV 11.1 fL fL (8.7-11.7) Neut % (Auto) 79.2 % H % (39.3-74.2) Lymph % (Auto) 7.7 % L % (15.0-45.0) Wheeler % (Auto) 6.5 % % (4.5-13.0) Eos % (Auto) 5.8 % % (0.6-7.6) Baso % (Auto) 0.3 % % (0.3-1.7) Nucleat RBC Rel Count 0.0 % % (0.0-0.2) Absolute Neuts (auto) 11.55 10^3/uL H 10^3/uL (1.70-6.50) Absolute Lymphs (auto) 1.12 10^3/uL 10^3/uL (1.00-3.00) Absolute Monos (auto) 0.95 10^3/uL H 10^3/uL (0.30-0.80) Absolute Eos (auto) 0.84 10^3/uL H 10^3/uL (0.03-0.40) Absolute Basos (auto) 0.04 10^3/uL 10^3/uL (0.02-0.10) Absolute Nucleated RBC 0.00 10^3/uL 10^3/uL (0-0.01) Immature Gran % 0.5 % % (0.0-1.1) Immature Gran # 0.08 10^3/uL 10^3/uL (0.00-0.10) POC Sodium 135 mEq/L mEq/L (135-145) Sodium 132 mEq/L L mEq/L (135-145) POC Potassium 6.2 mEq/L H mEq/L (3.3-5.0) Potassium 4.9 mEq/L mEq/L (3.5-5.2) POC Chloride 99 mEq/L mEq/L (97-110) Chloride 98 mEq/L mEq/L (97-110) Carbon Dioxide 26 mEq/l mEq/l (22-31) POC Total CO2 30 mEq/L mEq/L (22-31) Anion Gap 8 mEq/L mEq/L (6-14) POC BUN 26 mg/dL H mg/dL (7-23) BUN 21 mg/dL mg/dL (7-23) Creatinine 0.8 mg/dL mg/dL (0.7-1.3) POC Creatinine 0.8 mg/dL mg/dL (0.7-1.3) Estimated GFR > 60 Glucose 115 mg/dL H mg/dL (70-100) POC Glucose 115 mg/dL H mg/dL (70-100) Calcium 8.9 mg/dL mg/dL (8.5-10.4) Medications Given: Discontinued Medications Metoprolol Tartrate (Lopressor) 25 mg PO EDNOW ONE Stop: 06/20/18 22:22 Last Admin: 06/20/18 22:25 Dose: 25 mg Morphine Sulfate (Morphine) 2 mg IVP EDNOW ONE Stop: 06/20/18 22:14 Last Admin: 06/20/18 22:20 Dose: 2 mg Point of Care Test Results: Chemistry 06/20/18 21:35 POC Sodium 135 mEq/L mEq/L (135-145) POC Potassium 6.2 mEq/L H mEq/L (3.3-5.0) POC Chloride 99 mEq/L mEq/L (97-110) POC Total CO2 30 mEq/L mEq/L (22-31) POC BUN 26 mg/dL H mg/dL (7-23) POC Creatinine 0.8 mg/dL mg/dL (0.7-1.3) POC Glucose 115 mg/dL H mg/dL (70-100) ISTAT H&H 06/20/18 21:35 POC Hgb 15.3 gm/dL gm/dL (13.7-17.5) POC Hct 45 % % (40-51) General Time Seen by Provider: 06/20/18 21:22 Initial Vital Signs: Initial Vital Signs Temperature (C) 36.5 C 06/20/18 21:15 Heart Rate 60 06/20/18 21:15 Respiratory Rate 18 06/20/18 21:15 Blood Pressure 207/74 H 06/20/18 21:15 O2 Sat (%) 94 06/20/18 21:15 O2 Delivery Mode Room Air O2 (L/minute) 2 Allergies/Adverse Reactions: atorvastatin [From Lipitor] Allergy (Severe, Verified 06/20/18 21:15) Other-Enter Comments oxycodone [From Percocet] Allergy (Intermediate, Verified 06/20/18 21:15) Other-Enter Comments Home Medications: Medication Instructions Recorded Tamsulosin HCl [Flomax 0.4 MG (*)] 0.4 mg TUBE HS 12/14/14 Carboxymethylcellulose 1% [Refresh 1 each RTEYE QID 05/26/16 Celluvisc (*)] Fluoxetine HCl [Prozac 40 mg] 40 mg TUBE DAILY 05/26/16 Mineral Oil/Petrolatum,White 3.5 gm LEFTEYE QID 05/26/16 [Genteal Pm Ointment] Moxifloxacin HCl [Vigamox] 1 drops RTEYE DAILY 05/26/16 Oxybutynin Chloride [Ditropan Xl] 10 mg TUBE HS 05/26/16 Acetaminophen [Tylenol 325mg (*)] 650 mg PO Q4 PRN #0 tab 05/27/16 Aspirin [Aspirin 325 mg (*)] 325 mg PO DAILY #30 tab 05/27/16 ALPRAZolam [Xanax 0.5 MG (*)] 0.25 mg TUBE HS 05/14/17 Metoprolol Tartrate [Lopressor 25 25 mg PO BID 05/14/17 mg (*)] Oxybutynin Chloride Xl [Ditropan 5 mg PO DAILY 05/14/17 Xl 5mg (*)] Gabapentin 09/25/17 Amoxicillin/Clavulanate Pot 875 mg PO BID #20 tab 06/16/18 [Augmentin 875 mg tab] Departure - Departure Disposition: Home, Routine, Self-Care Clinical Impression: Headache Condition: Good Instructions: Acute Headache (ED) Additional Instructions: Follow-up with your primary care physician within 2-3 days. Return to the emergency department for recurrence of headache, nausea, vomiting , numbness, weakness, neck pain, fever or other concerns. Referrals: Nikia Boston MD [Primary Care Provider] - As per Instructions Report Scribed for: Landen Harmon Report Scribed by: Allison Lopez Date of Report: 06/20/18 Time of Report: 22:40 Physician Review and Approval Statement: Portions of this note were transcribed by an ED scribe. I personally performed the history, physical exam, and medical decision making; and confirm the accuracy of the information in the transcribed note.
[2018-06-20 22:18] LABS: PLATELET COUNT 167 10^3/uL (150-400)
[2018-06-20] MEDS ORDERED: METOPROLOL TARTRATE 25 MG TAB PO ONE (22:21)
--- NOTE | 2018-06-20 22:31 | CPEKG ---
Test Reason : OPEN Blood Pressure : / mmHG Vent. Rate : 061 BPM Atrial Rate : 061 BPM P-R Int : 272 ms QRS Dur : 094 ms QT Int : 446 ms P-R-T Axes : 037 046 029 degrees QTc Int : 450 ms Sinus rhythm Prolonged [place] interval Consider left ventricular hypertrophy Confirmed by Landen Harmon ([id number]) on 06/20/2018 10:31:25 PM Referred By: Landen Harmon Confirmed By:Landen Harmon
[2018-06-20 22:58] VITALS: BP 188/76
== END 2018-06-20 23:07 | disposition home or self-care (01) ==
DX: R51 Headache (principal); I10 Essential (primary) hypertension; Z86.73 Personal history of transient ischemic attack (TIA), and cerebral infarction without residual deficits
CPT/HCPCS: 70450; 93005; 96374; 99285; J2270; 82435-PO; 82565-PO; 82947-PO; 84132-PO; 84295-PO; 84520-PO; 85014-ER